=== PATIENT | male | born 1965 | race Caucasian/White ===

== ENCOUNTER 2019-07-06 10:53 | Emergency (ER) | payer MEDICARE, SELFPAY ==
[2019-07-06] VITALS (13 sets, daily range): BP systolic 106–123; BP diastolic 76–92; PULSE 68–89; RESP 10–18; TEMP 36.6; O2SAT 92–100; BMI 23.4
--- NOTE | 2019-07-06 11:34 | ED_ITS ---
HPI - Extremity Injury (Lower) <SANDRA Caldwell - Last Filed: 07/07/19 00:09> General Chief Complaint: Extremity Injury, Upper Stated Complaint: left wrist pain and right thigh pain Time Seen by Provider: 07/06/19 11:04 Source: patient Mode of arrival: Wheelchair Limitations: altered mental status History of Present Illness HPI Narrative: This is a 54-year-old male, nonsmoker, who presents to ED with chief complain of right thigh pain and significant left 5th disease pain. Patient appears to be intoxicated and has alcohol breath during conversation. Patient admitted had alcohol intake about a pint of vodka last night but states he is not a binge drinker or heavy drinker. Patient's he had injured his left 5th digit 3 days ago while opening a refrigerator door and he thinks he bumped it. Patient noticed progressively worsening pain, swelling in bruise since the initial injury and was evaluated yesterday at [facility] and was told he has a fracture on affected finger and had an ulnar/gutter splint applied on affected finger. Patient reports last night he accidentally fell after trip on his cat in a dark room and fell on R leg and since then has right hip and thigh pain with red spot. Patient reports he had broke his R leg 3 times in the past and had surgeries. Patient states he is here today in ER today since his was in town in [place] for her appointment and wanted to check it out. He denies driving himself today. Old record has been requested from [facility]. Related Data Home Medications Medication Instructions Recorded Confirmed BusPIRone Hydrochloride (BUSPAR~) 10 mg PO BID #0 07/27/12 OMEPRAZOLE 20 mg PO HS #30 07/27/12 gabapentin [Neurontin] 600 mg PO QID #120 07/27/12 lorazepam [Ativan] 1 mg PO TID #0 07/27/12 07/06/19 metoprolol tartrate 50 mg PO BID #0 07/27/12 oxycodone-acetaminophen [Endocet] 1 tab PO TID #0 07/27/12 pregabalin [Lyrica] 50 mg PO TID #0 07/27/12 sertraline 100 mg PO QDAY #30 07/27/12 Previous Rx's Medication Instructions Recorded albuterol sulfate [Proventil HFA] 2 puff INH Q4-6H #1 inh 07/27/12 meloxicam [Mobic] 15 mg PO QDAY #14 07/27/12 prednisone 40 mg PO QDAY #10 07/27/12 hydroxyzine pamoate [Vistaril] 25 - 50 mg PO HS #45 09/29/12 Allergies Allergy/AdvReac Type Severity Reaction Status Date / Time lisinopril Allergy Severe Swollen Verified 07/06/19 11:43 throat, lips and face Review of Systems <SANDRA Caldwell - Last Filed: 07/07/19 00:09> Review of Systems Narrative: General: Denies fever, chills, fatigue, malaise, sweats. HEENT: Denies sinus pain, ear pain, sore throat, difficulty swallowing, dizziness. Respiratory: Denies dyspnea, cough, wheezing, hemoptysis, sputum. Cardiovascular: Denies chest pain, palpitations, orthopnea, edema. Gastrointestinal: Denies nausea, vomiting, abdominal pain, diarrhea, constipation, melena. : Denies dysuria, frequency, incontinence, hematuria, urinary retention. Musculoskeletal: See HPI Skin: Denies rash, skin lesions, or other. Neurologic: Denies weakness, headache, numbness, change in speech, confusion, seizures, incoordination. Psychiatric: No concerning psychosocial issues. 12-point review of systems is negative except for those stated above. Patient History <SANDRA Caldwell - Last Filed: 07/07/19 00:09> Medical History (Updated 07/07/19 @ 00:08 by SANDRA Caldwell) Claustrophobia (Acute) GERD (gastroesophageal reflux disease) (Acute) Hypertension (Acute) Pancreatitis (Acute) Surgical History (Updated 07/07/19 @ 00:08 by SANDRA Caldwell) History of hip surgery (Acute) Tracheostomy status (Acute) Social History Smoking Status: Never smoker Smoking Status: Never smoker alcohol intake frequency: 3 or more drinks per day Substance Use Type: does not use Exam <SANDRA Caldwell - Last Filed: 07/07/19 00:09> Narrative Exam Narrative: GEN: Alert, oriented x 3, well appearing and nourished, and in no acute distress. Head: Normal cephalic, atraumatic. No scalp or temporal tenderness, palpable mass or rash. EYES: Pupils are equal, round, and reactive to light and accommodation. Extraocular muscles are intact bilaterally. There is no subconjunctival hemorrhage, exudate and sclera non-icteric. ENT: Bilateral auditory canals and tympanic membranes clear. Hearing grossly intact. Nose without bleeding, purulent discharge or deviation. Facial sinuses nontender to palpate. Mucous membrane moist, no mucosal lesion. Throat without erythema, tonsillar hypertrophy or exudate. Uvula in midline, airway patent. Neck: Trachea in midline. No JVD, non-tender without lymphadenopathy. No masses or thyroid megaly. Supple, non-tender and no meningeal signs. CARDIAC: Normal regular rate and rhythm without murmurs, gallops, or rubs. No chest wall tenderness. No peripheral edema, cyanosis or pallor. Capillary refill is less than 2 seconds. RESPIRATORY: Lungs are clear to auscultate bilaterally. No cough, wheezes, rales, or rhonchi. No stridor, respiratory distress, increase work of breathing, or accessary muscle used. ABD: Abdomen soft, nontender and non-distended. No guarding or rebound tende rness to palpate. Bowel sounds are normal in all 4 quadrants. There is no palpable masses or organomegaly. SKIN: Warm, dry, normal color for patient. No erythema, lesions or rash over visible areas. BACK: Nontender without deformity or crepitance. No flank tenderness. NEUROLOGICAL: Appears to be intoxicated with alcohol on his breath. Alert and oriented to place, time and person. Sensation and motor function intact bilaterally. No facial droops, dysphasia. PSYCHIATRIC: Good judgement and reason, without hallucinations, abnormal affect or abnormal behaviors during the examination. Patient is not suicidal. Initial Vital Signs Initial Vital Signs: Vital Signs Pulse Rate 80 07/06/19 11:00 Respiratory Rate 18 07/06/19 11:00 Blood Pressure 106/77 07/06/19 11:00 Extrem Right upper extremity: normal to inspection, full ROM, normal capillary refill and hand (5th distal phalange flexed but states no pain) Details: abnormal to inspection Left upper extremity: hand Details: normal capillary refill, neuromotor exam normal, normal ROM of fingers, swelling (mild swelling to 5th finger with light bruise) and ecchymosis Right lower extremity: hip/thigh Details: tenderness and ecchymosis (Lateral anterior mid thigh); no unusual warmth Left lower extremity: normal to inspection and full ROM <Sandee Crain DO - Last Filed: 07/11/19 06:55> Initial Vital Signs Initial Vital Signs: Vital Signs Pulse Rate 80 07/06/19 11:00 Respiratory Rate 18 07/06/19 11:00 Blood Pressure 106/77 07/06/19 11:00 Scores <Abdoul AdhikariSANDRA Salgado - Last Filed: 07/07/19 00:09> GCS Butler coma scale eye opening: Spontaneous Butler coma scale verbal response: Orientated Francine coma scale motor response: Obey commands Butler coma scale total score: 15 Course <Abdoul AdhikariSANDRA Salgado - Last Filed: 07/07/19 00:09> Orders Ordered: Discontinued Medications Acetaminophen (Tylenol) 650 mg PO NOW ONE Stop: 07/06/19 11:33 Last Admin: 07/06/19 12:05 Dose: Not Given Documented by: TAYLOR Sodium Chloride (Normal Saline 0.9%) 1,000 mls @ 1,000 mls/hr IV BOLUS ONE Stop: 07/06/19 13:39 Last Infusion: 07/06/19 13:50 Dose: 0 mls/hr Documented by: Infusion: 07/06/19 13:05 Dose: 0 mls/hr Documented by: Admin: 07/06/19 12:44 Dose: 1,000 mls/hr Documented by: TAYLOR Sodium Chloride (Normal Saline 0.9%) 1,000 mls @ 1,000 mls/hr IV BOLUS ONE Stop: 07/06/19 13:41 Last Admin: 07/06/19 14:10 Dose: Not Given Documented by: TAYLOR Magnesium Sulfate 2 gm/ Folic Acid 1 mg/ Thiamine HCl 100 mg / Multivitamins 10 ml/ Sodium Chloride 1,015.2 mls @ 200 mls/hr IV NOW ONE Stop: 07/06/19 18:00 Last Infusion: 07/06/19 15:37 Dose: 0 mls/hr Documented by: Admin: 07/06/19 13:28 Dose: 200 mls/hr Documented by: TAYLOR Ibuprofen (Advil) 400 mg PO NOW ONE Stop: 07/06/19 11:33 Last Admin: 07/06/19 12:05 Dose: Not Given Documented by: TAYLOR Pantoprazole Sodium (Protonix) 40 mg IV NOW ONE Stop: 07/06/19 12:43 Last Admin: 07/06/19 13:00 Dose: Not Given Documented by: TAYLOR Reevaluation(s) Reevaluation #1: Pt became unresponsive when RT to bedside for EKG. Aroused by painful stimuli and during pupil exam. Prior to this the patient reproted for chest and back pain. Noticed light ecchymotic bruise to L side chest wall. Ordered CT-head, CXR, lab test, Tox and ETOH screen. Time: 12:35 Reevaluation #2: Pt fully awake and conversing appropriately. Reports my body hurts all over Time: 13:35 Vital Signs Vital signs: Vital Signs - 8 hr 07/06/19 12:30 07/06/19 12:50 07/06/19 13:00 Pulse Rate 75 89 70 Respiratory Rate 14 14 12 Blood Pressure [Right Arm] 110/80 118/88 122/92 H Pulse Oximetry 93 94 07/06/19 13:15 07/06/19 13:30 07/06/19 13:31 Pulse Rate 72 71 68 Respiratory Rate 14 13 15 Blood Pressure [Right Arm] 115/78 114/83 119/87 Pulse Oximetry 92 100 07/06/19 13:45 07/06/19 14:00 07/06/19 14:15 Pulse Rate 71 71 70 Respiratory Rate 12 11 L 12 Blood Pressure [Right Arm] 108/78 107/79 112/76 Pulse Oximetry 93 95 96 07/06/19 14:30 Pulse Rate 68 Respiratory Rate 10 L Blood Pressure [Right Arm] 111/89 Pulse Oximetry 95 <Sandee Crain DO - Last Filed: 07/11/19 06:55> Orders Ordered: Discontinued Medications Acetaminophen (Tylenol) 650 mg PO NOW ONE Stop: 07/06/19 11:33 Last Admin: 07/06/19 12:05 Dose: Not Given Documented by: TAYLOR Sodium Chloride (Normal Saline 0.9%) 1,000 mls @ 1,000 mls/hr IV BOLUS ONE Stop: 07/06/19 13:39 Last Infusion: 07/06/19 13:50 Dose: 0 mls/hr Documented by: Infusion: 07/06/19 13:05 Dose: 0 mls/hr Documented by: Admin: 07/06/19 12:44 Dose: 1,000 mls/hr Documented by: TAYLOR Sodium Chloride (Normal Saline 0.9%) 1,000 mls @ 1,000 mls/hr IV BOLUS ONE Stop: 07/06/19 13:41 Last Admin: 07/06/19 14:10 Dose: Not Given Documented by: TAYLOR Magnesium Sulfate 2 gm/ Folic Acid 1 mg/ Thiamine HCl 100 mg / Multivitamins 10 ml/ Sodium Chloride 1,015.2 mls @ 200 mls/hr IV NOW ONE Stop: 07/06/19 18:00 Last Infusion: 07/06/19 15:37 Dose: 0 mls/hr Documented by: Admin: 07/06/19 13:28 Dose: 200 mls/hr Documented by: TAYLOR Ibuprofen (Advil) 400 mg PO NOW ONE Stop: 07/06/19 11:33 Last Admin: 07/06/19 12:05 Dose: Not Given Documented by: TAYLOR Pantoprazole Sodium (Protonix) 40 mg IV NOW ONE Stop: 07/06/19 12:43 Last Admin: 07/06/19 13:00 Dose: Not Given Documented by: TAYLOR Vital Signs Vital signs: Vital Signs - 8 hr 07/06/19 12:30 07/06/19 12:50 07/06/19 13:00 Pulse Rate 75 89 70 Respiratory Rate 14 14 12 Blood Pressure [Right Arm] 110/80 118/88 122/92 H Pulse Oximetry 93 94 07/06/19 13:15 07/06/19 13:30 07/06/19 13:31 Pulse Rate 72 71 68 Respiratory Rate 14 13 15 Blood Pressure [Right Arm] 115/78 114/83 119/87 Pulse Oximetry 92 100 07/06/19 13:45 07/06/19 14:00 07/06/19 14:15 Pulse Rate 71 71 70 Respiratory Rate 12 11 L 12 Blood Pressure [Right Arm] 108/78 107/79 112/76 Pulse Oximetry 93 95 96 07/06/19 14:30 Pulse Rate 68 Respiratory Rate 10 L Blood Pressure [Right Arm] 111/89 Pulse Oximetry 95 MDM - Extremity Injury (Lower) <MATILDA CaldwellP - Last Filed: 07/07/19 00:09> Differential Diagnosis Differential diagnosis: Likely other (ETOH intoxication, L 5th finger fracture, R hip contusion, Chest wall contusion) Medical Records Attestation: I reviewed the patient's medical records. Lab Data Attestation: I reviewed the patient's lab results. Result diagrams: 07/06/19 12:45 07/06/19 12:45 Labs: Lab Results 07/06/19 07/06/19 07/06/19 Range/Units 12:45 12:45 12:45 WBC 3.4 L (4.5-11.0) X10^3/uL RBC 3.57 L (4.5-5.9) X10^6/uL Hgb 12.2 L (13.5-17.5) g/dL Hct 35.7 L (41-53) % MCV 100.0 (80-100) fL MCH 34.3 H (26-34) PG MCHC 34.3 (30-36) % RDW 14.4 (11.6-14.8) % Plt Count 149 L (150-400) X10^3/uL Neut % (Auto) 30.5 L (50-75) % Lymph % (Auto) 38.1 (25-40) % [place] % (Auto) 23.7 H (3-14) % Eos % (Auto) 5.8 H (2-4) % Baso % (Auto) 1.9 (0-2) % Neut # (Auto) 1000 L (5400-1841) /uL Lymph # (Auto) 1300 (5777-3926) /uL [place] # (Auto) 800 (0-900) /uL Eos # (Auto) 200 (0-450) /uL Baso # (Auto) 100 (0-100) /uL Sodium 143 (137-145) mmol/L Potassium 3.7 (3.4-5.1) mmol/L Chloride 107 (98-107) mmol/L Carbon Dioxide 27 (22-32) mmol/L BUN 14 (9-20) mg/dL Creatinine 0.80 (0.66-1.25) mg/dL Estimated GFR > 60.0 (>60) mL/min BUN/Creatinine Ratio 17.5 (6-22) Glucose 94 (70-100) mg/dL Calcium 8.5 (8.4-10.2) mg/dL Magnesium (1.6-2.3) mg/dL Total Bilirubin 0.6 (0.2-1.3) mg/dL AST 117 H (17-59) IU/L ALT 52 H (<50) IU/L Alkaline Phosphatase 126 (38-126) U/L Total Creatine Kinase (55-170) U/L CK-MB (CK-2) CK-MB (CK-2) Rel Index Troponin I (0.01-0.034) ng/mL Total Protein 6.3 (6.3-8.2) g/dL Albumin 3.7 (3.5-5.0) g/dL Globulin 2.6 (1.7-4.1) g/dL Albumin/Globulin Ratio 1.4 (1.0-2.8) Lipase (23-300) U/L TSH 1.56 (0.47-4.68) uIU/mL Urine Color Urine Appearance Urine pH (4.5-8.0) Ur Specific [place] (1.000-1.035) Urine Protein (Negative) Urine Glucose (UA) (Negative) g/dL Urine Ketones (NEGATIVE) Urine Occult Blood (Negative) Urine Nitrate (Negative) Urine Bilirubin (NEGATIVE) Urine Urobilinogen (0.2) E.U./dL Ur Leukocyte Esterase (NEGATIVE) Urine RBC (0-5/HPF) Urine WBC (0-5/HPF) Ur Squamous Epith Cells Ur Transition Epith Cell Ur Renal Epithelial Cell Calcium Oxalate Crystal Uric Acid Crystals Triple Phos Crystals Other Crystals Amorphous Sediment Urine Bacteria (None) Hyaline Casts Granular Casts RBC Casts WBC Casts Other Casts Urine Mucus Urine Trichomonas Urine Yeast Urine Sperm Ur Culture Indicated? Micro UA Comment Salicylates < 1.0 (<20) mg/dL U Opiates 300ng/mL cut (Negative) Ur Oxycodone Screen (Negative) Urine Methadone Screen (Negative) Acetaminophen < 10 L (10-30) ug/mL Ur Barbiturates Screen (Negative) U Tricyclic Antidepress (Negative) Ur Phencyclidine Scrn (Negative) Ur Amphetamines Screen (Negative) U Methamphetamines Scrn (Negative) Ur MDMA Scrn (Ecstasy) (Negative) U Benzodiazepines Scrn (Negative) Urine Cocaine Screen (Negative) U Marijuana (THC) Screen (Negative) Ethyl Alcohol 258 H ( - 10) mg/dL 07/06/19 07/06/19 07/06/19 Range/Units 12:45 12:45 12:50 WBC (4.5-11.0) X10^3/uL RBC (4.5-5.9) X10^6/uL Hgb (13.5-17.5) g/dL Hct (41-53) % MCV (80-100) fL MCH (26-34) PG MCHC (30-36) % RDW (11.6-14.8) % Plt Count (150-400) X10^3/uL Neut % (Auto) (50-75) % Lymph % (Auto) (25-40) % [place] % (Auto) (3-14) % Eos % (Auto) (2-4) % Baso % (Auto) (0-2) % Neut # (Auto) (7617-4303) /uL Lymph # (Auto) (2104-8912) /uL [place] # (Auto) (0-900) /uL Eos # (Auto) (0-450) /uL Baso # (Auto) (0-100) /uL Sodium (137-145) mmol/L Potassium (3.4-5.1) mmol/L Chloride (98-107) mmol/L Carbon Dioxide (22-32) mmol/L BUN (9-20) mg/dL Creatinine (0.66-1.25) mg/dL Estimated GFR (>60) mL/min BUN/Creatinine Ratio (6-22) Glucose (70-100) mg/dL Calcium (8.4-10.2) mg/dL Magnesium 1.7 (1.6-2.3) mg/dL Total Bilirubin (0.2-1.3) mg/dL AST (17-59) IU/L ALT (<50) IU/L Alkaline Phosphatase (38-126) U/L Total Creatine Kinase 56 (55-170) U/L CK-MB (CK-2) TNP CK-MB (CK-2) Rel Index TNP Troponin I < 0.012 (0.01-0.034) ng/mL Total Protein (6.3-8.2) g/dL Albumin (3.5-5.0) g/dL Globulin (1.7-4.1) g/dL Albumin/Globulin Ratio (1.0-2.8) Lipase 586 H (23-300) U/L TSH (0.47-4.68) uIU/mL Urine Color Yellow Urine Appearance Clear Urine pH 5.5 (4.5-8.0) Ur Specific [place] 1.015 (1.000-1.035) Urine Protein Negative (Negative) Urine Glucose (UA) Negative (Negative) g/dL Urine Ketones Negative (NEGATIVE) Urine Occult Blood Negative (Negative) Urine Nitrate Negative (Negative) Urine Bilirubin Negative (NEGATIVE) Urine Urobilinogen 0.2 (0.2) E.U./dL Ur Leukocyte Esterase Negative (NEGATIVE) Urine RBC None seen (0-5/HPF) Urine WBC 0-1/hpf (0-5/HPF) Ur Squamous Epith Cells Ur Transition Epith Cell Ur Renal Epithelial Cell Calcium Oxalate Crystal Uric Acid Crystals Triple Phos Crystals Other Crystals Amorphous Sediment Urine Bacteria Few (2-10) H (None) Hyaline Casts Granular Casts RBC Casts WBC Casts Other Casts Urine Mucus Urine Trichomonas Urine Yeast Urine Sperm Ur Culture Indicated? Cult not indicated Micro UA Comment Salicylates (<20) mg/dL U Opiates 300ng/mL cut (Negative) Ur Oxycodone Screen (Negative) Urine Methadone Screen (Negative) Acetaminophen (10-30) ug/mL Ur Barbiturates Screen (Negative) U Tricyclic Antidepress (Negative) Ur Phencyclidine Scrn (Negative) Ur Amphetamines Screen (Negative) U Methamphetamines Scrn (Negative) Ur MDMA Scrn (Ecstasy) (Negative) U Benzodiazepines Scrn (Negative) Urine Cocaine Screen (Negative) U Marijuana (THC) Screen (Negative) Ethyl Alcohol ( - 10) mg/dL 07/06/19 07/06/19 Range/Units 12:50 14:00 WBC (4.5-11.0) X10^3/uL RBC (4.5-5.9) X10^6/uL Hgb (13.5-17.5) g/dL Hct (41-53) % MCV (80-100) fL MCH (26-34) PG MCHC (30-36) % RDW (11.6-14.8) % Plt Count (150-400) X10^3/uL Neut % (Auto) (50-75) % Lymph % (Auto) (25-40) % [place] % (Auto) (3-14) % Eos % (Auto) (2-4) % Baso % (Auto) (0-2) % Neut # (Auto) (7614-3076) /uL Lymph # (Auto) (0499-0822) /uL [place] # (Auto) (0-900) /uL Eos # (Auto) (0-450) /uL Baso # (Auto) (0-100) /uL Sodium (137-145) mmol/L Potassium (3.4-5.1) mmol/L Chloride (98-107) mmol/L Carbon Dioxide (22-32) mmol/L BUN (9-20) mg/dL Creatinine (0.66-1.25) mg/dL Estimated GFR (>60) mL/min BUN/Creatinine Ratio (6-22) Glucose (70-100) mg/dL Calcium (8.4-10.2) mg/dL Magnesium (1.6-2.3) mg/dL Total Bilirubin (0.2-1.3) mg/dL AST (17-59) IU/L ALT (<50) IU/L Alkaline Phosphatase (38-126) U/L Total Creatine Kinase (55-170) U/L CK-MB (CK-2) CK-MB (CK-2) Rel Index Troponin I (0.01-0.034) ng/mL Total Protein (6.3-8.2) g/dL Albumin (3.5-5.0) g/dL Globulin (1.7-4.1) g/dL Albumin/Globulin Ratio (1.0-2.8) Lipase (23-300) U/L TSH (0.47-4.68) uIU/mL Urine Color Cancelled Urine Appearance Cancelled Urine pH Cancelled (4.5-8.0) Ur Specific [place] Cancelled (1.000-1.035) Urine Protein Cancelled (Negative) Urine Glucose (UA) Cancelled (Negative) g/dL Urine Ketones Cancelled (NEGATIVE) Urine Occult Blood Cancelled (Negative) Urine Nitrate Cancelled (Negative) Urine Bilirubin Cancelled (NEGATIVE) Urine Urobilinogen Cancelled (0.2) E.U./dL Ur Leukocyte Esterase Cancelled (NEGATIVE) Urine RBC Cancelled (0-5/HPF) Urine WBC Cancelled (0-5/HPF) Ur Squamous Epith Cells Cancelled Ur Transition Epith Cell Cancelled Ur Renal Epithelial Cell Cancelled Calcium Oxalate Crystal Cancelled Uric Acid Crystals Cancelled Triple Phos Crystals Cancelled Other Crystals Cancelled Amorphous Sediment Cancelled Urine Bacteria Cancelled (None) Hyaline Casts Cancelled Granular Casts Cancelled RBC Casts Cancelled WBC Casts Cancelled Other Casts Cancelled Urine Mucus Cancelled Urine Trichomonas Cancelled Urine Yeast Cancelled Urine Sperm Cancelled Ur Culture Indicated? Cancelled Micro UA Comment Cancelled Salicylates (<20) mg/dL U Opiates 300ng/mL cut Negative (Negative) Ur Oxycodone Screen Negative (Negative) Urine Methadone Screen Negative (Negative) Acetaminophen (10-30) ug/mL Ur Barbiturates Screen Negative (Negative) U Tricyclic Antidepress Negative (Negative) Ur Phencyclidine Scrn Negative (Negative) Ur Amphetamines Screen Negative (Negative) U Methamphetamines Scrn Negative (Negative) Ur MDMA Scrn (Ecstasy) Negative (Negative) U Benzodiazepines Scrn Negative (Negative) Urine Cocaine Screen Negative (Negative) U Marijuana (THC) Screen Negative (Negative) Ethyl Alcohol ( - 10) mg/dL Point of Care Testing Glucose POC [address] scan - head: Radiologist's Impression: [address] [address] [address] Scan Report Signed Patient: Gadiel Quiñonez EMR#: [id number] : 1965Acct:[id number] Age/Sex: 54 / MDate of Service: 07/06/19 Loc: ED Accession Number: [id number] Procedure: CT head/brain wo con Ordering Provider: Abdoul Han PROCEDURE: CT HEAD/BRAIN WO CON INDICATIONS: altered mental status TECHNIQUE: Noncontrast 4.5 mm thick angled axial sections acquired from the foramen magnum to the vertex, with coronal and sagittal reformats. For radiation dose reduction, the following was used: automated exposure control, adjustment of mA and/or kV according to patient size. COMPARISON: None. FINDINGS: Image quality: Excellent. CSF spaces: Basal cisterns are patent. No extra-axial fluid collections. The ventricles are symmetric in size and shape. Brain: No intracranial bleeds or masses. There is cerebral volume loss for age, with resultant ventricular and sulcal prominence. There are periventricular and deep white matter chronic small vessel ischemic changes. There is intracranial internal carotid artery atherosclerosis. Skull and face: Calvarium and visualized facial bones appear intact, without suspicious lesions. Sinuses: Visualized sinuses and mastoids are clear. IMPRESSION: No acute disease, source of altered mental status is not found. Dictated by: Hubert Crespo M.D. on 07/06/2019 at 13:08 Approved by: Hubert Crespo M.D. on 07/06/2019 at 13:09 Chest x-ray: Radiologist's Impression: Gadiel Quioñnez 54 M [address] [address] XRay Report Signed Patient: Gadiel Quiñonez EMR#: [id number] : 1965Acct:[id number] Age/Sex: 54 / MDate of Service: 07/06/19 Loc: ED Accession Number: [id number] Procedure: XR chest 1V Ordering Provider: Abdoul Han PROCEDURE: XR CHEST 1V INDICATIONS: unresponsive TECHNIQUE: One view of the chest was acquired. COMPARISON: None. FINDINGS: Surgical changes and devices: None. Lungs and pleura: Lungs are difficult to accurately assess due to reduced inspiratory volume crowding the bronchovascular markings. No definite pneumonia present. Possible mild pulmonary edema. No pleural effusions or pneumothorax. Mediastinum: Mediastinal contours appear normal. Heart size is normal. Bones and chest wall: No suspicious bony lesions. Overlying soft tissues appear unremarkable. Old left-sided healed rib fractures. IMPRESSION: Reduced inspiratory volume. Old left-sided posterior rib fractures. Possible mild pulmonary edema. Dictated by: Hubert Crespo M.D. on 07/06/2019 at 13:01 Approved by: Hubert Crespo M.D. on 07/06/2019 at 13:04 XR-Hip R: Radiologist's Impression: [address] [address] XRay Report Signed Patient: Gadiel Quiñonez EMR#: [id number] : 1965Acct:[id number] Age/Sex: 54 / MDate of Service: 07/06/19 Loc: ED Accession Number: [id number] Procedure: XR hip w pel if done RT 2V Ordering Provider: Abdoul Han PROCEDURE: XR HIP W PEL IF DONE RT 2V INDICATIONS: R thigh pain, s/p fall, hx hip surgeries TECHNIQUE: AP pelvis with lateral view of the right hip. COMPARISON: [facility], CR, XR PELVIS WITH LATERAL HIP RIGHT, 04/22/2018, 14:23. [facility], CR, XR FEMUR RT MIN 2V, 07/06/2019, 11:32. FINDINGS: Bones: No acute fractures or dislocations. Pelvic ring appears intact. A longstem right hip prosthesis with proximal cerclage wires is redemonstrated. No intra- change in alignment. No new suspicious periprosthetic lucencies. Hypertrophic changes are again noted along the proximal right femur. Soft tissues: The visualized bowel gas pattern is normal. There are a few small periarticular calcifications likely reflecting heterotopic ossification. IMPRESSION: 1. No acute fracture or dislocation. 2. Postsurgical changes including a right hip prosthesis redemonstrated without definite evidence of hardware failure. Dictated by: Daniele Ji M.D. on 07/06/2019 at 12:29 Approved by: Daniele Ji M.D. on 07/06/2019 at 12:31 XR-Femur Rt: Radiologist's Impression: Gadiel Quiñonez 54 M 1965 [place] [address] XRay Report Signed Patient: Gadiel Quiñonez EMR#: [id number] : 1965Acct:[id number] Age/Sex: 54 / MDate of Service: 07/06/19 Loc: ED Accession Number: [id number] Procedure: XR femur RT min 2V Ordering Provider: Abdoul Han PROCEDURE: XR FEMUR RT MIN 2V INDICATIONS: R thigh pain, s/p fall TECHNIQUE: 3 views of the femur were acquired. COMPARISON: [facility], CR, XR PELVIS WITH LATERAL HIP RIGHT, 04/22/2018, 14:23. [facility], CR, XR HIP W PEL IF DONE RT 2V, 07/06/2019, 11:32. FINDINGS: Bones: No acute fractures or dislocations. There are postsurgical changes with a right hip longstem prosthesis redemonstrated. Cerclage wires are also again noted along the proximal femur. Hypertrophic changes are again noted along the proximal right femur are Soft tissues: No new suspicious soft tissue calcifications or masses. IMPRESSION: 1. No acute fracture or dislocation. 2. Post surgical changes redemonstrated in the right hip and proximal femur. Dictated by: Daniele Ji M.D. on 07/06/2019 at 12:16 Approved by: Daniele Ji M.D. on 07/06/2019 at 12:28 ECG Data Attestation: I personally reviewed and interpreted this ECG as follows: Prior ECG tracings: not available for review Interpretation: Sinus rhythm rate at 75. No ST elevation or depression MO interval 154, QRS duration 87, QTc 434 MDM Narrative Medical decision making narrative: This is a 54-year-old gentleman who presents to ED intoxicated with chief complain of severe left 5th finger pain and right thigh pain. Difficulty obtaining HPI due to patient was unable to recall and was appeared to be intoxicated. Patient states he was treated last night in [facility] and was told he has fracture on his left 5th finger and has ulnar gutter splint applied. Patient reports he was not discharged to home with pain medication. [facility] web site was verified and patient received lorazepam 1 mg 90 tabs last in 06/06/19 and 80 tabs during April and monthly prior to this. Old record from [facility] has been requested but this was not available till later time. Patient did not mention about getting x-ray done on his right-sided hip/pelvis/femur at this time since he thinks he had taken a fall last night after he was evaluated at the hospital and x-ray test was obtained. While waiting for x-ray result, patient reports chest and back pain. EKG was ordered and went internetworking technician entered the room, patient was difficult to be aroused by verbal command and touch with slowed breathing. EKG was obtained and showed sinus rhythm rate at [address] elevation or depression. Noticed ecchymosis to chest wall. IV had started with lab draws. Doll catheter was inserted for urine output. CT of head was obtained and does not show acute findings. Portable chest x-ray was done and shows old left-sided posterior rib fractures and possible mild pulmonary edema. Right hip and femur x-ray tests does not show any acute findings today. Blood test shows mild anemia with H&H of 12.2/35.7. Elevated eosinophil of 5.8. Elevated AST of 117 and lipase of 586 which is likely from chronic alcohol intake. ETOH level today was 258 with negative UDS. Old record from [facility] arrived at this time. Patient was evaluated at [facility] ER yesterday afternoon after he presents to clinic for a fall after drinking heavily. Patient was transported by EMS and had reported episode of V-tach which was not recorded and treated. Patient was evaluated thoroughly with multiple CT exams with head, neck, facial, abdomen and pelvis, chest, and left hand x-ray along blood tests. Only findings noted during this visit was left 5th proximal finger fracture and discharged to home when he was clinically sober. Patient was monitored with end CO2 monitor along cardiac exercise specialist. Patient was medicated with Narcan without much effect. Patient was fully aroused about an hour. Patient was medicated with normal saline IV hydration and banana bag. Patient's altered mental status is likely due to heavy alcohol intake and possibly from Ativan ingestion. Patient complain of generalized body aches and finger pain but informed that will not be prescribed with narcotic medications since he is already taking Ativan and heavy alcohol use and risk for respiratory depression. Return precautions were discussed with the patient and advised to follow up with orthopedist as he plans to. Patient advised to quit drinking and seek help. Patient verbalized understanding and agrees with the treatment plan. Patient states he is ready to go home and patient was clinically sober at this time. Patient was able to walk around the nursing station without difficulty. When patient was being discharged, his mother contacted emergency room to inquire about patient. Mother reports she was dropped off at orthopedic office in [place] by patient this morning and she had waited 2 hours. Mother states patient in the take Ativan this morning which she witness. Patient instructed to catch a cab to home since his mother is already at home. Patient had difficult time locating his car in the parking lot according to manager it security. When patient was not watched continuously by of manager it security, the patient's car drove off the parking lot. <Sandee Paras, DO - Last Filed: 07/11/19 06:55> Lab Data Labs: Lab Results 07/06/19 07/06/19 07/06/19 Range/Units 12:45 12:45 12:45 WBC 3.4 L (4.5-11.0) X10^3/uL RBC 3.57 L (4.5-5.9) X10^6/uL Hgb 12.2 L (13.5-17.5) g/dL Hct 35.7 L (41-53) % MCV 100.0 (80-100) fL MCH 34.3 H (26-34) PG MCHC 34.3 (30-36) % RDW 14.4 (11.6-14.8) % Plt Count 149 L (150-400) X10^3/uL Neut % (Auto) 30.5 L (50-75) % Lymph % (Auto) 38.1 (25-40) % [place] % (Auto) 23.7 H (3-14) % Eos % (Auto) 5.8 H (2-4) % Baso % (Auto) 1.9 (0-2) % Neut # (Auto) 1000 L (6364-9596) /uL Lymph # (Auto) 1300 (5887-5638) /uL [place] # (Auto) 800 (0-900) /uL Eos # (Auto) 200 (0-450) /uL Baso # (Auto) 100 (0-100) /uL Sodium 143 (137-145) mmol/L Potassium 3.7 (3.4-5.1) mmol/L Chloride 107 (98-107) mmol/L Carbon Dioxide 27 (22-32) mmol/L BUN 14 (9-20) mg/dL Creatinine 0.80 (0.66-1.25) mg/dL Estimated GFR > 60.0 (>60) mL/min BUN/Creatinine Ratio 17.5 (6-22) Glucose 94 (70-100) mg/dL Calcium 8.5 (8.4-10.2) mg/dL Magnesium (1.6-2.3) mg/dL Total Bilirubin 0.6 (0.2-1.3) mg/dL AST 117 H (17-59) IU/L ALT 52 H (<50) IU/L Alkaline Phosphatase 126 (38-126) U/L Total Creatine Kinase (55-170) U/L CK-MB (CK-2) CK-MB (CK-2) Rel Index Troponin I (0.01-0.034) ng/mL Total Protein 6.3 (6.3-8.2) g/dL Albumin 3.7 (3.5-5.0) g/dL Globulin 2.6 (1.7-4.1) g/dL Albumin/Globulin Ratio 1.4 (1.0-2.8) Lipase (23-300) U/L TSH 1.56 (0.47-4.68) uIU/mL Urine Color Urine Appearance Urine pH (4.5-8.0) Ur Specific [place] (1.000-1.035) Urine Protein (Negative) Urine Glucose (UA) (Negative) g/dL Urine Ketones (NEGATIVE) Urine Occult Blood (Negative) Urine Nitrate (Negative) Urine Bilirubin (NEGATIVE) Urine Urobilinogen (0.2) E.U./dL Ur Leukocyte Esterase (NEGATIVE) Urine RBC (0-5/HPF) Urine WBC (0-5/HPF) Ur Squamous Epith Cells Ur Transition Epith Cell Ur Renal Epithelial Cell Calcium Oxalate Crystal Uric Acid Crystals Triple Phos Crystals Other Crystals Amorphous Sediment Urine Bacteria (None) Hyaline Casts Granular Casts RBC Casts WBC Casts Other Casts Urine Mucus Urine Trichomonas Urine Yeast Urine Sperm Ur Culture Indicated? Micro UA Comment Salicylates < 1.0 (<20) mg/dL U Opiates 300ng/mL cut (Negative) Ur Oxycodone Screen (Negative) Urine Methadone Screen (Negative) Acetaminophen < 10 L (10-30) ug/mL Ur Barbiturates Screen (Negative) U Tricyclic Antidepress (Negative) Ur Phencyclidine Scrn (Negative) Ur Amphetamines Screen (Negative) U Methamphetamines Scrn (Negative) Ur MDMA Scrn (Ecstasy) (Negative) U Benzodiazepines Scrn (Negative) Urine Cocaine Screen (Negative) U Marijuana (THC) Screen (Negative) Ethyl Alcohol 258 H ( - 10) mg/dL 07/06/19 07/06/19 07/06/19 Range/Units 12:45 12:45 12:50 WBC (4.5-11.0) X10^3/uL RBC (4.5-5.9) X10^6/uL Hgb (13.5-17.5) g/dL Hct (41-53) % MCV (80-100) fL MCH (26-34) PG MCHC (30-36) % RDW (11.6-14.8) % Plt Count (150-400) X10^3/uL Neut % (Auto) (50-75) % Lymph % (Auto) (25-40) % [place] % (Auto) (3-14) % Eos % (Auto) (2-4) % Baso % (Auto) (0-2) % Neut # (Auto) (3538-1899) /uL Lymph # (Auto) (8471-7973) /uL [place] # (Auto) (0-900) /uL Eos # (Auto) (0-450) /uL Baso # (Auto) (0-100) /uL Sodium (137-145) mmol/L Potassium (3.4-5.1) mmol/L Chloride (98-107) mmol/L Carbon Dioxide (22-32) mmol/L BUN (9-20) mg/dL Creatinine (0.66-1.25) mg/dL Estimated GFR (>60) mL/min BUN/Creatinine Ratio (6-22) Glucose (70-100) mg/dL Calcium (8.4-10.2) mg/dL Magnesium 1.7 (1.6-2.3) mg/dL Total Bilirubin (0.2-1.3) mg/dL AST (17-59) IU/L ALT (<50) IU/L Alkaline Phosphatase (38-126) U/L Total Creatine Kinase 56 (55-170) U/L CK-MB (CK-2) TNP CK-MB (CK-2) Rel Index TNP Troponin I < 0.012 (0.01-0.034) ng/mL Total Protein (6.3-8.2) g/dL Albumin (3.5-5.0) g/dL Globulin (1.7-4.1) g/dL Albumin/Globulin Ratio (1.0-2.8) Lipase 586 H (23-300) U/L TSH (0.47-4.68) uIU/mL Urine Color Yellow Urine Appearance Clear Urine pH 5.5 (4.5-8.0) Ur Specific [place] 1.015 (1.000-1.035) Urine Protein Negative (Negative) Urine Glucose (UA) Negative (Negative) g/dL Urine Ketones Negative (NEGATIVE) Urine Occult Blood Negative (Negative) Urine Nitrate Negative (Negative) Urine Bilirubin Negative (NEGATIVE) Urine Urobilinogen 0.2 (0.2) E.U./dL Ur Leukocyte Esterase Negative (NEGATIVE) Urine RBC None seen (0-5/HPF) Urine WBC 0-1/hpf (0-5/HPF) Ur Squamous Epith Cells Ur Transition Epith Cell Ur Renal Epithelial Cell Calcium Oxalate Crystal Uric Acid Crystals Triple Phos Crystals Other Crystals Amorphous Sediment Urine Bacteria Few (2-10) H (None) Hyaline Casts Granular Casts RBC Casts WBC Casts Other Casts Urine Mucus Urine Trichomonas Urine Yeast Urine Sperm Ur Culture Indicated? Cult not indicated Micro UA Comment Salicylates (<20) mg/dL U Opiates 300ng/mL cut (Negative) Ur Oxycodone Screen (Negative) Urine Methadone Screen (Negative) Acetaminophen (10-30) ug/mL Ur Barbiturates Screen (Negative) U Tricyclic Antidepress (Negative) Ur Phencyclidine Scrn (Negative) Ur Amphetamines Screen (Negative) U Methamphetamines Scrn (Negative) Ur MDMA Scrn (Ecstasy) (Negative) U Benzodiazepines Scrn (Negative) Urine Cocaine Screen (Negative) U Marijuana (THC) Screen (Negative) Ethyl Alcohol ( - 10) mg/dL 07/06/19 07/06/19 Range/Units 12:50 14:00 WBC (4.5-11.0) X10^3/uL RBC (4.5-5.9) X10^6/uL Hgb (13.5-17.5) g/dL Hct (41-53) % MCV (80-100) fL MCH (26-34) PG MCHC (30-36) % RDW (11.6-14.8) % Plt Count (150-400) X10^3/uL Neut % (Auto) (50-75) % Lymph % (Auto) (25-40) % [place] % (Auto) (3-14) % Eos % (Auto) (2-4) % Baso % (Auto) (0-2) % Neut # (Auto) (0739-8498) /uL Lymph # (Auto) (8837-5865) /uL [place] # (Auto) (0-900) /uL Eos # (Auto) (0-450) /uL Baso # (Auto) (0-100) /uL Sodium (137-145) mmol/L Potassium (3.4-5.1) mmol/L Chloride (98-107) mmol/L Carbon Dioxide (22-32) mmol/L BUN (9-20) mg/dL Creatinine (0.66-1.25) mg/dL Estimated GFR (>60) mL/min BUN/Creatinine Ratio (6-22) Glucose (70-100) mg/dL Calcium (8.4-10.2) mg/dL Magnesium (1.6-2.3) mg/dL Total Bilirubin (0.2-1.3) mg/dL AST (17-59) IU/L ALT (<50) IU/L Alkaline Phosphatase (38-126) U/L Total Creatine Kinase (55-170) U/L CK-MB (CK-2) CK-MB (CK-2) Rel Index Troponin I (0.01-0.034) ng/mL Total Protein (6.3-8.2) g/dL Albumin (3.5-5.0) g/dL Globulin (1.7-4.1) g/dL Albumin/Globulin Ratio (1.0-2.8) Lipase (23-300) U/L TSH (0.47-4.68) uIU/mL Urine Color Cancelled Urine Appearance Cancelled Urine pH Cancelled (4.5-8.0) Ur Specific [place] Cancelled (1.000-1.035) Urine Protein Cancelled (Negative) Urine Glucose (UA) Cancelled (Negative) g/dL Urine Ketones Cancelled (NEGATIVE) Urine Occult Blood Cancelled (Negative) Urine Nitrate Cancelled (Negative) Urine Bilirubin Cancelled (NEGATIVE) Urine Urobilinogen Cancelled (0.2) E.U./dL Ur Leukocyte Esterase Cancelled (NEGATIVE) Urine RBC Cancelled (0-5/HPF) Urine WBC Cancelled (0-5/HPF) Ur Squamous Epith Cells Cancelled Ur Transition Epith Cell Cancelled Ur Renal Epithelial Cell Cancelled Calcium Oxalate Crystal Cancelled Uric Acid Crystals Cancelled Triple Phos Crystals Cancelled Other Crystals Cancelled Amorphous Sediment Cancelled Urine Bacteria Cancelled (None) Hyaline Casts Cancelled Granular Casts Cancelled RBC Casts Cancelled WBC Casts Cancelled Other Casts Cancelled Urine Mucus Cancelled Urine Trichomonas Cancelled Urine Yeast Cancelled Urine Sperm Cancelled Ur Culture Indicated? Cancelled Micro UA Comment Cancelled Salicylates (<20) mg/dL U Opiates 300ng/mL cut Negative (Negative) Ur Oxycodone Screen Negative (Negative) Urine Methadone Screen Negative (Negative) Acetaminophen (10-30) ug/mL Ur Barbiturates Screen Negative (Negative) U Tricyclic Antidepress Negative (Negative) Ur Phencyclidine Scrn Negative (Negative) Ur Amphetamines Screen Negative (Negative) U Methamphetamines Scrn Negative (Negative) Ur MDMA Scrn (Ecstasy) Negative (Negative) U Benzodiazepines Scrn Negative (Negative) Urine Cocaine Screen Negative (Negative) U Marijuana (THC) Screen Negative (Negative) Ethyl Alcohol ( - 10) mg/dL Point of Care Testing Glucose POC 105 Discharge Plan Departure Patient Disposition: Home Clinical Impression: Pain in right leg Alcohol intoxication Qualifiers: Complication of substance-induced condition: with unspecified complication Qualified Code(s): F10.929 - Alcohol use, unspecified with intoxication, unspecified Finger fracture, left Qualifiers: Encounter type: initial encounter Finger: little finger Fracture type: closed Phalanx: unspecified phalanx Fracture alignment: nondisplaced Qualified Code(s): S62.607A - Fracture of unspecified phalanx of left little finger, initial encounter for closed fracture Chest wall contusion Qualifiers: Encounter type: initial encounter Laterality: unspecified laterality Qualified Code(s): S20.219A - Contusion of unspecified front wall of thorax, initial encounter Discharge Date/Time: 07/06/19 16:22 Instructions: DI for Finger Fracture, DI for Alcohol Abuse, DI for Contusion Activity Restrictions/Additional Instructions: You have been diagnosed with [alcohol intoxication, left 5th digit fracture, contusion to chest, right lower extremity. Your EKG was normal, blood test shows mild anemia, elevated liver function tests and lipase, the alcohol level of 258. Head CT and chest x-ray is without acute findings today. There is no new fractures in your right hip or pelvis. Your splint has been reapplied on left hand.]. What to do: *Take your medications as directed. Please take [id number] Tylenol and or Motrin as needed for discomfort. You were medicated with Tylenol and Motrin this morning for pain. You can take 650 of Tylenol up to 4 times a day and 400 mg ibuprofen with meals up to 3 times a day as needed for discomfort. You were provided with Protonix IV, normal saline hydration, banana bag IV fluid while you're in ED. *Follow up with your primary care provider in 2-3 days, call for an appointment. Please follow up with orthopedist as you have planned for finger fracture in left hand. Please use splint all time. Let them know you were seen in the ED and that we asked you to be seen in follow up. Please stop drinking alcohol and seek help for this. Please do not drive while you're intoxicated. *Return to ED if you have any new, worsening, or concerning symptoms, such as [chest pain, breathing difficulty, unable to tolerate fluids, weakness/numbness/severe pain in her injured areas or any acute concerns]. Prescriptions: No Action metoprolol tartrate 50 MG tablet 50 mg PO BID Qty: 0 RF: 0 pregabalin [Lyrica] 50 MG capsule 50 mg PO TID Qty: 0 RF: 0 OMEPRAZOLE 20 mg PO HS Qty: 30 RF: 0 gabapentin [Neurontin] 600 MG tablet 600 mg PO QID Qty: 120 RF: 0 oxycodone-acetaminophen [Endocet] 5 MG/325 MG tablet 1 tab PO TID Qty: 0 RF: 0 BusPIRone Hydrochloride (BUSPAR~) 10 mg PO BID Qty: 0 RF: 0 meloxicam [Mobic] 15 MG tablet 15 mg PO QDAY Qty: 14 RF: 1 prednisone 20 MG tablet 40 mg PO QDAY Qty: 10 RF: 0 albuterol sulfate [Proventil HFA] 90 MCG/PUFF HFA aerosol inhaler 2 puff INH Q4-6H Qty: 1 RF: 1 lorazepam [Ativan] 1 MG tablet 1 mg PO TID Qty: 0 RF: 0 sertraline 100 MG tablet 100 mg PO QDAY Qty: 30 RF: 0 hydroxyzine pamoate [Vistaril] 25 MG capsule 25 - 50 mg PO HS Qty: 45 RF: 0 Referrals: Danyell Kingsley PA-C [Primary Care Provider] -
--- NOTE | 2019-07-06 11:40 | PC.NURSE ---
Spoke with Pt about who he is looking for and where she was last seen. He informed me his and he is looking for his mother. States she dropped him off a few buildings away and thinks she is at some bone clinic but he is unable to remember where or who she is seeing.
--- NOTE | 2019-07-06 12:40 | PC.NURSE ---
security installation technician entered room to get EKG. reports unresponsive. Camryn Started IV and dhara labs. Narcan Administered with No effect. Dr. Crain and CHIEF PHARMACIST Abdoul at bedside. We just recieved records from [facility]. Records being reviewed by Abdoul.
--- NOTE | 2019-07-06 12:40 | DI.RAD.S_ITS ---
PROCEDURE: XR CHEST 1V INDICATIONS: unresponsive TECHNIQUE: One view of the chest was acquired. COMPARISON: None. FINDINGS: Surgical changes and devices: None. Lungs and pleura: Lungs are difficult to accurately assess due to reduced inspiratory volume crowding the bronchovascular markings. No definite pneumonia present. Possible mild pulmonary edema. No pleural effusions or pneumothorax. Mediastinum: Mediastinal contours appear normal. Heart size is normal. Bones and chest wall: No suspicious bony lesions. Overlying soft tissues appear unremarkable. Old left-sided healed rib fractures. IMPRESSION: Reduced inspiratory volume. Old left-sided posterior rib fractures. Possible mild pulmonary edema. Dictated by: Hubert Crespo M.D. on 07/06/2019 at 13:01 Approved by: Hubert Crespo M.D. on 07/06/2019 at 13:04
--- NOTE | 2019-07-06 12:41 | DI.CT.S_ITS ---
PROCEDURE: CT HEAD/BRAIN WO CON INDICATIONS: altered mental status TECHNIQUE: Noncontrast 4.5 mm thick angled axial sections acquired from the foramen magnum to the vertex, with coronal and sagittal reformats. For radiation dose reduction, the following was used: automated exposure control, adjustment of mA and/or kV according to patient size. COMPARISON: None. FINDINGS: Image quality: Excellent. CSF spaces: Basal cisterns are patent. No extra-axial fluid collections. The ventricles are symmetric in size and shape. Brain: No intracranial bleeds or masses. There is cerebral volume loss for age, with resultant ventricular and sulcal prominence. There are periventricular and deep white matter chronic small vessel ischemic changes. There is intracranial internal carotid artery atherosclerosis. Skull and face: Calvarium and visualized facial bones appear intact, without suspicious lesions. Sinuses: Visualized sinuses and mastoids are clear. IMPRESSION: No acute disease, source of altered mental status is not found. Dictated by: Hubert Crespo M.D. on 07/06/2019 at 13:08 Approved by: Hubert Crespo M.D. on 07/06/2019 at 13:09
[2019-07-06] MEDS: NALOXONE 1 MG/ML SYRINGE 2 MG (12:43)
[2019-07-06] MEDS: SODIUM CHLORIDE 0.9% 1,000 ML 1000 ML IV (12:44)
[2019-07-06 12:50] LABS: Add Manual Diff / Slide Review NO; Basophils Absolute Auto 100 /uL (0-100); Basophils Percent Auto 1.9 % (0-2); Eosinophils Absolute Auto 200 /uL (0-450); Eosinophils Percent Auto 5.8 % (2-4); Hematocrit 35.7 % (41-53); Hemoglobin 12.2 g/dL (13.5-17.5); Lymphocytes Absolute Auto 1300 /uL (1100-4500); Lymphocytes Percent Auto 38.1 % (25-40); Mean Corpuscular HGB Conc 34.3 % (30-36); Mean Corpuscular Hemoglobin 34.3 PG (26-34); Monocytes Absolute Auto 800 /uL (0-900); Monocytes Percent Auto 23.7 % (3-14); Neutrophils Absolute Auto 1000 /uL (1500-7000); Neutrophils Percent Auto 30.5 % (50-75); Platelet Count 149 X10^3/uL (150-400); Red Blood Cell Count 3.57 X10^6/uL (4.5-5.9); Red Cell Distribution Width 14.4 % (11.6-14.8); White Blood Cell Count 3.4 X10^3/uL (4.5-11.0)
[2019-07-06 13:04] LABS: Appearance Urine UA CLEAR; Bilirubin Urine UA NEGATIVE (NEGATIVE); Color Urine UA YELLOW; Glucose Urine UA NEGATIVE (Negative); Ketones Urine UA NEGATIVE (NEGATIVE); Leukocyte Esterase Urine UA NEGATIVE (NEGATIVE); Nitrite Urine UA NEGATIVE (Negative); Occult Blood Urine UA NEGATIVE (Negative); Protein Urine UA NEGATIVE (Negative); Specific Gravity Urine UA 1.015 (1.000-1.035); Urobilinogen Urine UA 0.2 E.U./dL (0.2); pH Urine UA 5.5 (4.5-8.0)
[2019-07-06 13:04] LABS: Acetaminophen < 10 ug/mL (10-30); Alanine Aminotransferase 52 IU/L (<50); Albumin 3.7 g/dL (3.5-5.0); Albumin Globulin Ratio 1.4 (1.0-2.8); Alkaline Phosphatase 126 U/L (38-126); Aspartate Aminotransferase 117 IU/L (17-59); BUN Creatinine Ratio 17.5 (6-22); Bilirubin Total 0.6 mg/dL (0.2-1.3); Blood Urea Nitrogen 14 mg/dL (9-20); Calcium 8.5 mg/dL (8.4-10.2); Carbon Dioxide 27 mmol/L (22-32); Chloride 107 mmol/L (98-107); Creatine Kinase 56 U/L (55-170); Estimated Glomerular Filt Rate > 60.0 mL/min (>60); Ethanol (ETOH) 258 mg/dL; Globulin 2.6 g/dL (1.7-4.1); Glucose 94 mg/dL (70-100); HEMOLYSIS 17 (0-50); Lipase 586 U/L (23-300); Potassium 3.7 mmol/L (3.4-5.1); Salicylate < 1.0 mg/dL (<20); Sodium 143 mmol/L (137-145); Total Protein 6.3 g/dL (6.3-8.2)
[2019-07-06 13:16] LABS: Troponin I < 0.012 ng/mL (0.01-0.034)
[2019-07-06 13:18] LABS: UR Morphine/Opiate cutoff 300 Negative (Negative); Ur Creatinine Normal (Normal); Ur Specific Gravity Normal (Normal); Urine Amphetamines Negative (Negative); Urine Barbiturates Negative (Negative); Urine Benzodiazepines Negative (Negative); Urine Cocaine Negative (Negative); Urine MDMA Negative (Negative); Urine Methadone Negative (Negative); Urine Methamphetamines Negative (Negative); Urine Oxycodone Negative (Negative); Urine Phencyclidine Negative (Negative); Urine Tetrahydrocannabinol Negative (Negative); Urine Tricyclic Antidepressant Negative (Negative); Urine pH Normal (Normal)
[2019-07-06 13:22] LABS: Magnesium 1.7 mg/dL (1.6-2.3)
[2019-07-06 13:22] LABS: Bacteria Urine Few (2-10); Culture Indicated Urine Cult Not Indicated; RBC Urine None Seen (0-5/HPF); WBC Urine 0-1/HPF (0-5/HPF)
[2019-07-06] MEDS: MAGNESIUM SULFATE 2 GM, FOLIC ACID 1 MG, THIAMINE 100 MG, MULTIVITAMIN 10 ML in SODIUM ... IV (13:28)
--- NOTE | 2019-07-06 14:16 | PC.NURSE ---
Pt states he couldn't be better when asked for clarification he states he doesn't know. Updated on condition. Pt falls asleep easily. Informed him again that we did not get ahold of his mom. Pt states he remembers that conversation and states he will need a cab home.
--- NOTE | 2019-07-06 14:38 | PC.NURSE ---
late entry: @ 1230p: Called to pt room by respiratory therapy. Pt is now unresponsive to painful stimulus. Dr. Crain to room. Given narcan w/o any improvement. Pt had admitted to etoh prior to arrival. Able to maintain airway w/o positioning. To CT w/ RN.
[2019-07-06 14:46] LABS: Thyroid Stimulating Hormone 1.56 uIU/mL (0.47-4.68)
--- NOTE | 2019-07-06 15:32 | PC.NURSE ---
Ambulated with Pt around ED. Pt tolerated well. States he has a mild limp from a previous fall. Pt request pain and anxiety medication again. Notified that we cannot give him anything else that may sedate him because he was unresponsive a little while ago. Pt verbalizes understanding and states he has some thing at home for it. I asked pt if we could call him a cab or a friend to give him a ride, pt states he has a phone and has it under control. Pt again repeats that his Mom brought him to [place] and that he needs a Cab home.
--- NOTE | 2019-07-06 16:12 | PC.NURSE ---
Spoke with pt's Mom on the phone. She states pt drove her to a doctors appointment from [place] at 11. She reports pts driving was irratic and had bad behavior today. reports he did take his anxiety meds this morning but did not know about any drinking. Reports pt dropped her off at the appointment and was instructed to wait in the car. When she finished with her appointment, her son was gone. I reviewed discharge papers with her and let her know he should be taking a taxi home (per pt reports). I reviewed discharge instructions with pt. He verbalizes understanding. Given opportunity to ask questions and denies concerns at this time. Pt ambulatory from ED with This RN in no acute distress. Pt attempting to find car. I notified him that due to his alcohol level, he is not able to drive home. Pt verbalizes understanding and states he wants to find his house [place] and thinks it may be in his car. We searched closest parking lot and was unable to find it. I again offered to call a cab and pt declines. Pt and I return to ED waiting room and I informed Security that pt is looking for his car and is not safe to drive home. Security Rosalino now assisting pt in search for his car and calling a cab to get pt home. I notified Candelaria Ivory RN of all of the above.
== END 2019-07-06 16:22 | disposition home or self-care (01) ==
PROVIDERS: Emergency Provider Nurse Practitioner Family; PCP Physician Assistant
DX: S62.607A Fracture of unspecified phalanx of left little finger, initial encounter for closed fracture (principal); M79.651 Pain in right thigh; F10.929 Alcohol use, unspecified with intoxication, unspecified; R07.89 Other chest pain; R41.82 Altered mental status, unspecified; W01.0XXA Fall on same level from slipping, tripping and stumbling without subsequent striking against object, initial encounter
CPT/HCPCS: 36415; 51701; 70450; 71045; 73502; 73552; 80053; 80305; 80320; 80329; 81001; 82550; 82962; 83690; 83735; 84443; 84484; 85025; 93005; 96365; 96366; 99285; G0480; J2310; J3475

== ENCOUNTER 2020-02-19 20:25 | Emergency (ER) | payer MEDICARE, MEDICAID, SELFPAY ==
[2020-02-19 20:32] VITALS: BP 114/82; PULSE 71; RESP 12; TEMP 36.2; O2SAT 100; BMI 21.0
--- NOTE | 2020-02-19 20:32 | DI.CT.S_ITS ---
PROCEDURE: CT CERVICAL SPINE WO CON INDICATIONS: fall with head injury, positive etoh TECHNIQUE: Noncontrast 3 mm thick sections acquired from the skull base to the T4 level. Sagittal and coronal reformats were then constructed. For radiation dose reduction, the following was used: automated exposure control, adjustment of mA and/or kV according to patient size. COMPARISON: None. FINDINGS: Image quality: Excellent. Bones: No fractures or dislocations. Visualized superior ribs are intact. Multilevel disc space narrowing and endplate osteophyte formation. Multilevel facet hypertrophy. Soft tissues: Prevertebral soft tissues are normal in thickness. No paravertebral hematomas. No apical pneumothoraces. REFERENCE TEXT DELETE FROM FINAL REPORT Craniocervical Injury Classification: Occipital condyle fractures: * Type I: axial loading with minimal displacement; stable. * Type II: skull base fx extending through condyle; stable. * Type III: alar ligament avulsion fx:; unstable. [place] fractures (Mohit): * Type I: posterior arches; stable. * Type II: anterior arch; stable. * Type III: bilat posterior arch with bilateral/unilateral anterior arch (Mohit burst); potentially unstable depending on transverse ligament integrity. * Type IV: lateral mass fx; stable. * Type V: transverse anterior arch avulsion fx; stable. Odontoid fractures: * Type I: alar ligament oblique avulsion fx through tip; stable. * Type II: dens-body junction; unstable. Risk factors for non-union: age >50 years, >6 mm displacement, or comminution at fracture site. * Type III: thru cancellous portion of dens body; can cause canal compromise. Hangman fractures: * Type I: hairline fx with <2 mm translation; stable. * Type II: angulation >11 degrees, > 2 mm translation; can be unstable. * Type IIa: severe angulation w/o translation (intact ALL); unstable. * Type III: bilateral facet dislocation; unstable. Atlantoaxial rotatory subluxation and fixation: * Type I: rotatory fixation with dens as pivot point, intact alar & transverse ligaments. * Type II: transverse ligament torn, center of rotation shifts to lateral mass, <5 mm anterior displacement of atlas; unstable. * Type III: transverse and alar ligaments torn, similar to type II but with >5 mm anterior displacement of atlas; unstable. * Type IV: deficient odontoid, with posterior displacement of atlas; unstable. Subaxial Injury Classification: SLIC Scoring System. Morphology: * No abnormality: 0 * Compression: 1 * Burst: 2 * Distraction: 3 (dislocation in the vertical axis, from hyperextension or hyperflexion). Hyperflexion-distraction criteria: facet overlap <50%, facet diastasis > 2mm, posterior disk spac widening with angulation >11 degrees. * Translation or rotation: 4. Rotation criteria: listhesis >3.5 mm but <50% of caudal vertebral body width. Translation criteria: listhesis >3.5 mm and usually >50% of caudal vertebral body width. Discoligamentous complex: psych coordinator from abnormal bony relationships on CT. * Intact: 0 * Indeterminate: 1 * Disrupted: 2 Neurologic status: * Intact: 0 * Root injury: 1 * Complete cord injury: 2 * Incomplete cord injury: 3 * Incomplete cord injury with compression: 4 Total SLIC score: 3 or less is non-surgical, 4 is indeterminate, 5 or more is surgical. IMPRESSION: Multilevel degenerative disc and facet disease. No fracture. Dictated by: Liz Bhardwaj M.D. on 02/19/2020 at 21:25 Approved by: Liz Bhardwaj M.D. on 02/19/2020 at 21:27
--- NOTE | 2020-02-19 20:32 | DI.CT.S_ITS ---
PROCEDURE: CT HEAD/BRAIN WO CON INDICATIONS: slurred speech, possible head injury TECHNIQUE: Noncontrast 4.5 mm thick angled axial sections acquired from the foramen magnum to the vertex, with coronal and sagittal reformats. For radiation dose reduction, the following was used: automated exposure control, adjustment of mA and/or kV according to patient size. COMPARISON: [facility], CT, CT HEAD/BRAIN WO CON, 07/06/2019, 12:49. FINDINGS: Image quality: Excellent. CSF spaces: Basal cisterns are patent. No extra-axial fluid collections. Ventricles are normal in size and shape. Brain: No midline shift. No intracranial masses or hemorrhage. Quinn-white matter interface is normal. Skull and face: Calvarium and visualized facial bones are intact, without suspicious lesions. Sinuses: Visualized sinuses and mastoids are clear. IMPRESSION: No acute process. Dictated by: Liz Bhardwaj M.D. on 02/19/2020 at 21:25 Approved by: Liz Bhardwaj M.D. on 02/19/2020 at 21:25
--- NOTE | 2020-02-19 20:37 | ED.AMS ---
HPI - Altered Mental Status General Chief Complaint: Neuro Symptoms/Deficit Stated Complaint: Slurred Speech Time Seen by Provider: 02/19/20 20:26 Source: patient and EMS Mode of arrival: EMS Limitations: no limitations History of Present Illness HPI narrative: 54M smoker with extensive alcohol history presents by EMS for evalaution of slurring of speech over much of the day. The contact lens curve grinder team know the patient well and state he is seemingly at his baseline. He does admit to drinking over much of the day and states he was at home and reaching forward for something and he fell forward, maybe hitting his head in the process. He denies any loss of consciousness. He denies any pain. He's had no visual change or focal complaints such as numbness, tingling or weakness. His mother states he wasn't slurring last night, which seems to be his last known normal. He does not meet criteria for stroke activation given that his last known normal was almost 24 hours ago and he has LAMS score of 0. MD complaint: intoxication Onset (ago): hour(s) Timing confirmed by: family member Severity: mild Consistency of symptoms: constant Context: alcohol abuse Associated symptoms: denies other symptoms Treatments prior to arrival: IV fluid and spinal immobilization Related Data Home Medications Medication Instructions Recorded Confirmed acetaminophen [Tylenol Extra 1,000 mg PO Q6H PRN 02/19/20 02/19/20 Strength] calcium carbonate-vitamin D3 1 tab PO DAILY 02/19/20 02/19/20 [Calcium 500 + D] cholecalciferol (vitamin D3) 25 mcg PO DAILY 02/19/20 02/19/20 cyanocobalamin (vitamin B-12) 1,000 mcg PO DAILY 02/19/20 02/19/20 [Vitamin B-12] famotidine 20 mg PO BID 02/19/20 02/19/20 folic acid 0.4 mg PO DAILY 02/19/20 02/19/20 furosemide 40 mg PO DAILY 02/19/20 02/19/20 gabapentin 600 mg PO TID 02/19/20 02/19/20 lorazepam 1 mg PO QID 02/19/20 02/19/20 magnesium oxide 400 mg PO BID 02/19/20 02/19/20 multivit with min-folic acid 200 mcg PO DAILY 02/19/20 02/19/20 [Adult Multivitamin Gummies] omeprazole 20 mg PO BID 02/19/20 02/19/20 ondansetron 4 mg TRANSLINGUAL Q6HR PRN 02/19/20 02/19/20 oxycodone 5 mg PO Q4H PRN 02/19/20 02/19/20 propranolol 30 mg PO BID 02/19/20 02/19/20 sennosides [senna] 8.6 mg PO BID PRN 02/19/20 02/19/20 spironolactone 25 mg PO BID 02/19/20 02/19/20 sucralfate 1 g PO BID 02/19/20 02/19/20 thiamine HCl (vitamin B1) 100 mg PO DAILY 02/19/20 02/19/20 Allergies Allergy/AdvReac Type Severity Reaction Status Date / Time lisinopril Allergy Severe Swollen Verified 02/19/20 20:38 throat, lips and face Review of Systems Constitutional Constitutional: Denies chills, Denies fatigue, Denies fever(s), Denies frequent falls, Denies lethargy and Denies weakness Eyes Eyes: Denies change in vision, Denies eye discharge, Denies irritation and Denies loss of vision ENT Ears, Nose, Mouth, and Throat: Denies change in voice, Denies dizziness, Denies neck pain, Denies sore throat and Denies throat swelling Cardiovascular Cardiovascular: Denies chest pain, Denies irregular heart rhythm, Denies lightheadedness, Denies palpitations, Denies dyspnea, Denies dyspnea on exertion and Denies orthopnea Respiratory Respiratory: Denies cough, Denies dyspnea, Denies dyspnea on exertion and Denies wheezing Gastrointestinal Gastrointestinal: Denies abdominal pain, Denies change in bowel habits, Denies diarrhea, Denies nausea and Denies vomiting Musculoskeletal Musculoskeletal: Denies neck pain and Denies numbness Integumentary/Breasts Skin/Breast: Denies pruritus, Denies erythema, Denies rash and Denies wounds Neurologic Neurologic: Reports abnormal speech, Denies behavioral changes, Denies confusion, Denies dizziness, Denies frequent falls, Denies loss of vision, Denies numbness and Denies weakness Psychiatric Psychiatric: Denies anxiety, Denies behavioral changes, Denies confusion, Denies depression, Denies homicidal ideation and Denies suicidal ideation Endocrine Endocrine: Denies fatigue, Denies flushing and Denies palpitations Hematologic/Lymphatic Hematologic/Lymphatic: Denies easy bruising Allergic/Immunologic Allergic/Immunologic: Denies urticaria, Denies throat swelling and Denies wheezing Patient History Medical History Claustrophobia (Acute) GERD (gastroesophageal reflux disease) (Acute) Hypertension (Acute) Pancreatitis (Acute) Surgical History History of hip surgery (Acute) Tracheostomy status (Acute) Social History Smoking Status: Never smoker Smoking Status: Never smoker alcohol intake frequency: 3 or more drinks per day Substance Use Type: does not use Exam Narrative Exam Narrative: GENERAL: [54] year old patient appears stated age. Well-nourished, well-developed patient, in mild distress. HEAD: Atraumatic. Normocephalic. EYES: Pupils equal round and reactive. Extraocular motions intact. No scleral icterus. No injection or drainage. ENT: Nose without bleeding, purulent drainage. Throat without erythema, tonsillar hypertrophy or exudate. Airway patent. NECK: Trachea midline. Mild right sided paraspinal muscular pain CARDIOVASCULAR: Regular rate and rhythm without murmurs, gallops, or rubs. RESPIRATORY: Clear to auscultation. Breath sounds equal bilaterally. No wheezes, rales, or rhonchi. GASTROINTESTINAL: Abdomen soft, non-tender, nondistended. EXTREMITIES: No edema or joint tenderness. BACK: Nontender without deformity or crepitance. No flank tenderness. NEURO: AOx3. SKIN: No rash or erythema of visible areas Initial Vital Signs Initial Vital Signs: Vital Signs Temperature 97.2 F L 02/19/20 20:32 Pulse Rate 71 02/19/20 20:32 Respiratory Rate 12 02/19/20 20:32 Blood Pressure 114/82 02/19/20 20:32 Pulse Oximetry 100 02/19/20 20:32 Scores GCS [place] coma scale eye opening: Spontaneous Francine coma scale verbal response: Orientated [place] coma scale motor response: Obey commands [place] coma scale total score: 15 NIH Stroke Scale Level of Conciousness: Alert, keenly responsive Ask month/age: Answers both questions correctly. Open/close eyes, close hand: Performs both tasks correctly Best gaze horizontal: Normal Visual johnson: No visual loss Facial palsy: Normal symetrical movement Left arm drift: No drift for full 10 sec Right arm drift: No drift for full 10 sec Left leg drift: No drift for full 10 sec Right leg drift: No drift for full 10 sec Limb ataxia: Absent Sensory on face/arms/legs: Normal, no sensory loss Best language: No aphasia, normal Dysarthria: Mild to mod,some slurring Extinction or inattention: No abnormality Total NIH Stroke scale score: 1 Course Orders Ordered: ED Orders 02/19/20 20:32 CT cervical spine wo con Stat CT head/brain wo con Stat Complete Blood Count AUTO DIFF Stat Comprehensive Metabolic Panel Stat Ethanol (ETOH) Stat Lipase Stat Partial Thromboplastin Time Stat Prothrombin Time INR Stat Troponin & CK Cardiac Panel Stat Urine Drug Screen, Rapid Stat 02/19/20 20:40 EKG-12 Lead Stat Discontinued Medications Sodium Chloride (Normal Saline 0.9%) 1,000 mls @ 150 mls/hr IV CONT GORDY Last Infusion: 02/19/20 22:21 Dose: 0 mls/hr Documented by: Admin: 02/19/20 20:46 Dose: 150 mls/hr Documented by: CARSON Reevaluation(s) Reevaluation #1: patient continues to improve over duration of visit. His alcohol was found to be quite high. CTs unremarkable. Speech clears, patient ambulates with a steady gait. Requesting DC Vital Signs Vital signs: Vital Signs - 8 hr 02/19/20 20:32 02/19/20 20:47 02/19/20 21:11 Temperature 97.2 F L Pulse Rate 71 70 67 Respiratory Rate 12 14 13 Blood Pressure 114/82 Pulse Oximetry 100 99 97 02/19/20 21:30 02/19/20 22:00 02/19/20 23:13 Temperature 98.0 F Pulse Rate 74 76 Respiratory Rate 14 19 Blood Pressure 120/70 Pulse Oximetry 98 MDM - Altered Mental Status Lab Data Result diagrams: 02/19/20 20:32 02/19/20 20:32 Labs: Lab Results 02/19/20 02/19/20 02/19/20 Range/Units 20:32 20:32 20:32 WBC 4.8 (4.5-11.0) X10^3/uL RBC 4.23 L (4.5-5.9) X10^6/uL Hgb 14.4 (13.5-17.5) g/dL Hct 42.1 (41-53) % MCV 99.4 (80-100) fL MCH 34.0 (26-34) PG MCHC 34.2 (30-36) % RDW 15.4 H (11.6-14.8) % Plt Count 331 (150-400) X10^3/uL Neut % (Auto) 51.5 (50-75) % Lymph % (Auto) 34.7 (25-40) % [place] % (Auto) 9.2 (3-14) % Eos % (Auto) 4.2 H (2-4) % Baso % (Auto) 0.4 (0-2) % Neut # (Auto) 2500 (2315-8664) /uL Lymph # (Auto) 1700 (8954-2293) /uL [place] # (Auto) 400 (0-900) /uL Eos # (Auto) 200 (0-450) /uL Baso # (Auto) 0 (0-100) /uL PT 11.5 (10.1-12.7) SECONDS INR 1.0 (0.9-1.3) APTT 39 H (26.4-36.2) SECONDS Sodium 138 (137-145) mmol/L Potassium 3.9 (3.4-5.1) mmol/L Chloride 96 L (98-107) mmol/L Carbon Dioxide 28 (22-32) mmol/L BUN 8 L (9-20) mg/dL Creatinine 0.63 L (0.66-1.25) mg/dL Estimated GFR > 60.0 (>60) mL/min BUN/Creatinine Ratio 12.7 (6-22) Glucose 103 H (70-100) mg/dL Calcium 9.7 (8.4-10.2) mg/dL Total Bilirubin 0.5 (0.2-1.3) mg/dL AST 42 (17-59) IU/L ALT 19 (<50) IU/L Alkaline Phosphatase 123 (38-126) U/L Total Creatine Kinase 50 L (55-170) U/L CK-MB (CK-2) TNP CK-MB (CK-2) Rel Index TNP Troponin I < 0.012 (0.01-0.034) ng/mL Total Protein 8.8 H (6.3-8.2) g/dL Albumin 4.7 (3.5-5.0) g/dL Globulin 4.1 (1.7-4.1) g/dL Albumin/Globulin Ratio 1.1 (1.0-2.8) Lipase 20 L (23-300) U/L Ethyl Alcohol 283 H ( - 10) mg/dL Point of Care Testing Glucose POC [address] scan - head: Radiologist's Impression: Gadiel Quiñonez 54 M 1965 [place] [id number] Scan Report Signed Patient: Gadiel Quiñonez EMR#: [id number] : 1965Acct:[id number] Age/Sex: 54 / MDate of Service: 02/19/20 Loc: ED Accession Number: [id number] Procedure: CT head/brain wo con Ordering Provider: Sridhar Klein D.O. PROCEDURE: CT HEAD/BRAIN WO CON INDICATIONS: slurred speech, possible head injury TECHNIQUE: Noncontrast 4.5 mm thick angled axial sections acquired from the foramen magnum to the vertex, with coronal and sagittal reformats. For radiation dose reduction, the following was used: automated exposure control, adjustment of mA and/or kV according to patient size. COMPARISON: [facility], CT, CT HEAD/BRAIN WO CON, 07/06/2019, 12:49. FINDINGS: Image quality: Excellent. CSF spaces: Basal cisterns are patent. No extra-axial fluid collections. Ventricles are normal in size and shape. Brain: No midline shift. No intracranial masses or hemorrhage. Quinn-white matter interface is normal. Skull and face: Calvarium and visualized facial bones are intact, without suspicious lesions. Sinuses: Visualized sinuses and mastoids are clear. IMPRESSION: No acute process. Dictated by: Liz Bhardwaj M.D. on 02/19/2020 at 21:25 Approved by: Liz Bhardwaj M.D. on 02/19/2020 at 21:25 CT - cervical spine: Radiologist's Impression: [address] [address] [address] Scan Report Signed Patient: Gadiel Quiñonez EMR#: [id number] : 1965Acct:[id number] Age/Sex: 54 / MDate of Service: 02/19/20 Loc: ED Accession Number: [id number] Procedure: CT cervical spine wo con Ordering Provider: Sridhar Klein D.O. PROCEDURE: CT CERVICAL SPINE WO CON INDICATIONS: fall with head injury, positive etoh TECHNIQUE: Noncontrast 3 mm thick sections acquired from the skull base to the T4 level. Sagittal and coronal reformats were then constructed. For radiation dose reduction, the following was used: automated exposure control, adjustment of mA and/or kV according to patient size. COMPARISON: None. FINDINGS: Image quality: Excellent. Bones: No fractures or dislocations. Visualized superior ribs are intact. Multilevel disc space narrowing and endplate osteophyte formation. Multilevel facet hypertrophy. Soft tissues: Prevertebral soft tissues are normal in thickness. No paravertebral hematomas. No apical pneumothoraces. REFERENCE TEXT DELETE FROM FINAL REPORT Craniocervical Injury Classification: Occipital condyle fractures: * Type I: axial loading with minimal displacement; stable. * Type II: skull base fx extending through condyle; stable. * Type III: alar ligament avulsion fx:; unstable. [place] fractures (Mohit): * Type I: posterior arches; stable. * Type II: anterior arch; stable. * Type III: bilat posterior arch with bilateral/unilateral anterior arch (Mohit burst); potentially unstable depending on transverse ligament integrity. * Type IV: lateral mass fx; stable. * Type V: transverse anterior arch avulsion fx; stable. Odontoid fractures: * Type I: alar ligament oblique avulsion fx through tip; stable. * Type II: dens-body junction; unstable. Risk factors for non-union: age >50 years, >6 mm displacement, or comminution at fracture site. * Type III: thru cancellous portion of dens body; can cause canal compromise. Hangman fractures: * Type I: hairline fx with <2 mm translation; stable. * Type II: angulation >11 degrees, > 2 mm translation; can be unstable. * Type IIa: severe angulation w/o translation (intact ALL); unstable. * Type III: bilateral facet dislocation; unstable. Atlantoaxial rotatory subluxation and fixation: * Type I: rotatory fixation with dens as pivot point, intact alar & transverse ligaments. * Type II: transverse ligament torn, center of rotation shifts to lateral mass, <5 mm anterior displacement of atlas; unstable. * Type III: transverse and alar ligaments torn, similar to type II but with >5 mm anterior displacement of atlas; unstable. * Type IV: deficient odontoid, with posterior displacement of atlas; unstable. Subaxial Injury Classification: SLIC Scoring System. Morphology: * No abnormality: 0 * Compression: 1 * Burst: 2 * Distraction: 3 (dislocation in the vertical axis, from hyperextension or hyperflexion). Hyperflexion-distraction criteria: facet overlap <50%, facet diastasis > 2mm, posterior disk spac widening with angulation >11 degrees. * Translation or rotation: 4. Rotation criteria: listhesis >3.5 mm but <50% of caudal vertebral body width. Translation criteria: listhesis >3.5 mm and usually >50% of caudal vertebral body width. Discoligamentous complex: rail bender from abnormal bony relationships on CT. * Intact: 0 * Indeterminate: 1 * Disrupted: 2 Neurologic status: * Intact: 0 * Root injury: 1 * Complete cord injury: 2 * Incomplete cord injury: 3 * Incomplete cord injury with compression: 4 Total SLIC score: 3 or less is non-surgical, 4 is indeterminate, 5 or more is surgical. IMPRESSION: Multilevel degenerative disc and facet disease. No fracture. Dictated by: Liz Bhardwaj M.D. on 02/19/2020 at 21:25 Approved by: Liz Bhardwaj M.D. on 02/19/2020 at 21:[address] [facility] Narrative Medical decision making narrative: Multiple etiologies for patient's symptoms considered including: [Substance abuse versus alcohol versus stroke versus other] Patient's symptoms improved over duration of stay with above-stated therapies. Findings and discharge diagnosis discussed with patient/family followed by verbalization of understanding Return precautions discussed with patient/family whom verbalize understanding. Discharge Plan Departure Patient Disposition: Home Clinical Impression: Alcohol abuse Discharge Date/Time: 02/19/20 23:02 Instructions: DI for Alcohol Use Disorder Activity Restrictions/Additional Instructions: *You have been diagnosed with [alcohol abuse with slurring of speech, resolved with sobriety] *What to do: *Take medications as directed *Follow up with your primary care provider in 2-3 days, call for an appointment. Let them know you were seen in the Emergency Department and that we ask that you be seen in follow up *Return to ER if you should have any new, worsening or concerning symptoms Prescriptions: No Action furosemide 40 mg Tablet 40 mg PO DAILY RF: 0 sucralfate 1 gram Tablet 1 g PO BID RF: 0 cyanocobalamin (vitamin B-12) [Vitamin B-12] 1,000 mcg Tablet 1,000 mcg PO DAILY RF: 0 thiamine HCl (vitamin B1) 100 mg Tablet 100 mg PO DAILY RF: 0 folic acid 400 mcg Tablet 0.4 mg PO DAILY RF: 0 acetaminophen [Tylenol Extra Strength] 500 mg Tablet 1,000 mg PO Q6H PRN (Reason: pain/ fever) RF: 0 spironolactone 25 mg Tablet 25 mg PO BID RF: 0 propranolol 10 mg Tablet 30 mg PO BID RF: 0 famotidine 20 mg Tablet 20 mg PO BID RF: 0 gabapentin 300 mg Capsule 600 mg PO TID RF: 0 omeprazole 20 mg Capsule,Delayed Release(Dr/Ec) 20 mg PO BID RF: 0 lorazepam 1 mg Tablet 1 mg PO QID RF: 0 ondansetron 4 mg tablet,disintegrating 4 mg translingual Q6HR PRN (Reason: nausea / vomiting) RF: 0 oxycodone 5 mg Tablet 5 mg PO Q4H PRN (Reason: Pain (Scale Score 7-10)) RF: 0 cholecalciferol (vitamin D3) 25 mcg (1,000 unit) Capsule 25 mcg PO DAILY RF: 0 senna 8.6 mg Capsule 8.6 mg PO BID PRN (Reason: Constipation) RF: 0 calcium carbonate-vitamin D3 [Calcium 500 + D] 500 mg(1,250mg) -200 unit Tablet 1 tab PO DAILY RF: 0 Adult Multivitamin Gummies 200 mcg Tablet,Chewable 200 mcg PO DAILY RF: 0 magnesium oxide 400 mg magnesium Tablet 400 mg PO BID RF: 0 Referrals: Sushil Hamilton MD [Primary Care Provider] -
[2020-02-19] MEDS: SODIUM CHLORIDE 0.9% 1,000 ML 150 ML IV (20:46)
[2020-02-19 20:47] VITALS: PULSE 70; RESP 14; O2SAT 99
[2020-02-19 20:53] LABS: Add Manual Diff / Slide Review NO; Basophils Absolute Auto 0 /uL (0-100); Basophils Percent Auto 0.4 % (0-2); Eosinophils Absolute Auto 200 /uL (0-450); Eosinophils Percent Auto 4.2 % (2-4); Hematocrit 42.1 % (41-53); Hemoglobin 14.4 g/dL (13.5-17.5); Lymphocytes Absolute Auto 1700 /uL (1100-4500); Lymphocytes Percent Auto 34.7 % (25-40); Mean Corpuscular HGB Conc 34.2 % (30-36); Mean Corpuscular Volume 99.4 fL (80-100); Monocytes Absolute Auto 400 /uL (0-900); Monocytes Percent Auto 9.2 % (3-14); Neutrophils Absolute Auto 2500 /uL (1500-7000); Neutrophils Percent Auto 51.5 % (50-75); Platelet Count 331 X10^3/uL (150-400); Red Blood Cell Count 4.23 X10^6/uL (4.5-5.9); Red Cell Distribution Width 15.4 % (11.6-14.8); White Blood Cell Count 4.8 X10^3/uL (4.5-11.0)
--- NOTE | 2020-02-19 20:55 | PC.NURSE ---
iv placed ekg performed c collar remains in place pt on cardaic monitor
--- NOTE | 2020-02-19 20:57 | PC.NURSE ---
pt to ct
[2020-02-19 20:59] LABS: Prothrombin Time 11.5 SECONDS (10.1-12.7)
[2020-02-19 21:02] LABS: PTT Partial Thromboplastin Tim 39 SECONDS (26.4-36.2)
[2020-02-19 21:05] LABS: Alanine Aminotransferase 19 IU/L (<50); Albumin 4.7 g/dL (3.5-5.0); Albumin Globulin Ratio 1.1 (1.0-2.8); Alkaline Phosphatase 123 U/L (38-126); Aspartate Aminotransferase 42 IU/L (17-59); BUN Creatinine Ratio 12.7 (6-22); Bilirubin Total 0.5 mg/dL (0.2-1.3); Blood Urea Nitrogen 8 mg/dL (9-20); Calcium 9.7 mg/dL (8.4-10.2); Carbon Dioxide 28 mmol/L (22-32); Chloride 96 mmol/L (98-107); Creatine Kinase 50 U/L (55-170); Estimated Glomerular Filt Rate > 60.0 mL/min (>60); Ethanol (ETOH) 283 mg/dL; Globulin 4.1 g/dL (1.7-4.1); Glucose 103 mg/dL (70-100); HEMOLYSIS < 15 (0-50); Lipase 20 U/L (23-300); Potassium 3.9 mmol/L (3.4-5.1); Sodium 138 mmol/L (137-145); Total Protein 8.8 g/dL (6.3-8.2)
[2020-02-19 21:11] VITALS: PULSE 67; RESP 13; O2SAT 97
[2020-02-19 21:16] LABS: Troponin I < 0.012 ng/mL (0.01-0.034)
[2020-02-19 21:30] VITALS: PULSE 74; RESP 14; O2SAT 98
--- NOTE | 2020-02-19 21:53 | PC.NURSE ---
cervical collar removed per Dr. Klein. Denies pain / discomfort
[2020-02-19 22:00] VITALS: BP 120/70; PULSE 76; RESP 19
--- NOTE | 2020-02-19 22:23 | PC.NURSE ---
Pt requesting to go home. Given phone to call for a ride. Provider aware and states can go home if someone picks him up.
[2020-02-19 23:13] VITALS: TEMP 36.7
== END 2020-02-19 23:02 | disposition home or self-care (01) ==
PROVIDERS: Emergency Provider Emergency Medicine; PCP Family Medicine
DX: F10.129 Alcohol abuse with intoxication, unspecified (principal); Y90.8 Blood alcohol level of 240 mg/100 ml or more
CPT/HCPCS: 36415; 70450; 72125; 80053; 80320; 82550; 82962; 83690; 84484; 85025; 85610; 85730; 93005; 96360; 96361; 99284

== ENCOUNTER 2021-02-12 16:01 | Emergency (ER) | payer MEDICARE, MEDICAID, SELFPAY ==
[2021-02-12] VITALS (21 sets, daily range): BP systolic 99–118; BP diastolic 68–79; PULSE 80–91; RESP 12–18; TEMP 36.2; O2SAT 94–97
--- NOTE | 2021-02-12 16:05 | DI.CT.S_ITS ---
PROCEDURE: CT HEAD/BRAIN WO CON INDICATIONS: Syncope TECHNIQUE: Noncontrast 4.5 mm thick angled axial sections acquired from the foramen magnum to the vertex, with coronal and sagittal reformats. For radiation dose reduction, the following was used: automated exposure control, adjustment of mA and/or kV according to patient size. COMPARISON: [facility], CT, CT HEAD/BRAIN WO CON, 02/19/2020, 20:53. FINDINGS: Image quality: Excellent. CSF spaces: Basal cisterns are patent. No extra-axial fluid collections. The ventricles are symmetric in size and shape. Brain: No intracranial bleeds or masses. There is cerebral volume loss for age, with resultant ventricular and sulcal prominence. There are periventricular and deep white matter chronic small vessel ischemic changes. There is intracranial internal carotid artery atherosclerosis. Skull and face: Calvarium and visualized facial bones appear intact, without suspicious lesions. Sinuses: Visualized sinuses and mastoids are clear. IMPRESSION: No acute intracranial finding. Dictated by: Omid Mchugh M.D. on 02/12/2021 at 16:32 Approved by: Omid Mchugh M.D. on 02/12/2021 at 16:32
[2021-02-12 16:12] LABS: Add Manual Diff / Slide Review NO; Basophils Absolute Auto 0 /uL (0-100); Basophils Percent Auto 0.3 % (0-2); Eosinophils Absolute Auto 400 /uL (0-450); Eosinophils Percent Auto 7.5 % (2-4); Hematocrit 45.6 % (41-53); Hemoglobin 15.6 g/dL (13.5-17.5); Lymphocytes Absolute Auto 1700 /uL (1100-4500); Lymphocytes Percent Auto 33.4 % (25-40); Mean Corpuscular HGB Conc 34.2 % (30-36); Mean Corpuscular Hemoglobin 33.8 PG (26-34); Mean Corpuscular Volume 98.6 fL (80-100); Monocytes Absolute Auto 500 /uL (0-900); Monocytes Percent Auto 9.4 % (3-14); Neutrophils Absolute Auto 2500 /uL (1500-7000); Neutrophils Percent Auto 49.4 % (50-75); Platelet Count 232 X10^3/uL (150-400); Red Blood Cell Count 4.62 X10^6/uL (4.5-5.9); Red Cell Distribution Width 14.6 % (11.6-14.8)
--- NOTE | 2021-02-12 16:12 | PC.NURSE ---
currently poorly responsive; unable to complete full neuro eval at this time. Pt w/ easy work of breathing, pink/earm/dry.
[2021-02-12] MEDS: SODIUM CHLORIDE 0.9% 1,000 ML 1000 ML IV (16:16)
[2021-02-12 16:24] LABS: BUN Creatinine Ratio 14.7 (6-22); Blood Urea Nitrogen 14 mg/dL (9-20); Calcium 10.5 mg/dL (8.4-10.2); Carbon Dioxide 22 mmol/L (22-32); Chloride 96 mmol/L (98-107); Estimated Glomerular Filt Rate > 60.0 mL/min (>60); Ethanol (ETOH) 176 mg/dL; Glucose 133 mg/dL (70-100); HEMOLYSIS 18 (0-50); Lipase 29 U/L (23-300); Potassium 4.8 mmol/L (3.4-5.1); Sodium 135 mmol/L (137-145)
--- NOTE | 2021-02-12 16:31 | ED.GENADULT ---
HPI - General Adult General Chief complaint: Unresponsive Stated complaint: syncope Time Seen by Provider: 02/12/21 16:04 Mode of arrival: other Limitations: altered mental status History of Present Illness HPI narrative: Patient is a 55-year-old male who was brought to the emergency department after collapsing in the waiting room here at the hospital. He had brought his mother to the hospital to have some test performed. He states he was waiting in the waiting room. He went to stand up and then is unable to provide much more history than this. He states that he was not having chest pain or shortness of breath. His mother who is at bedside who witnessed the event stated that he actually got down on the ground himself. He did not fall. Did not hit his head. Patient was responsive to a sternal rub initially upon arrival. The HPI that is provided above was given after he had been here in the emergency department for period of time. Related Data Home Medications Medication Instructions Recorded Confirmed acetaminophen 500 mg tablet 1,000 mg PO Q6H PRN 02/19/20 02/19/20 (Tylenol Extra Strength) calcium carbonate 500 mg (1,250 1 tab PO DAILY 02/19/20 02/19/20 mg)-vitamin D3 200 unit tablet (Calcium 500 + D) cholecalciferol (vitamin D3) 25 25 mcg PO DAILY 02/19/20 02/19/20 mcg (1,000 unit) capsule cyanocobalamin (vitamin B-12) 1,000 mcg PO DAILY 02/19/20 02/19/20 1,000 mcg tablet (Vitamin B-12) famotidine 20 mg tablet 20 mg PO BID 02/19/20 02/19/20 folic acid 400 mcg tablet 0.4 mg PO DAILY 02/19/20 02/19/20 furosemide 40 mg tablet 40 mg PO DAILY 02/19/20 02/19/20 gabapentin 300 mg capsule 600 mg PO TID 02/19/20 02/19/20 lorazepam 1 mg tablet 1 mg PO QID 02/19/20 02/19/20 magnesium oxide 400 mg PO BID 02/19/20 02/19/20 multivitamin with minerals-folic 200 mcg PO DAILY 02/19/20 02/19/20 acid 200 mcg chewable tablet (Adult Multivitamin Gummies) omeprazole 20 mg capsule,delayed 20 mg PO BID 02/19/20 02/19/20 release ondansetron 4 mg disintegrating 4 mg TRANSLINGUAL Q6HR PRN 02/19/20 02/19/20 tablet oxycodone 5 mg tablet 5 mg PO Q4H PRN 02/19/20 02/19/20 propranolol 10 mg tablet 30 mg PO BID 02/19/20 02/19/20 sennosides 8.6 mg capsule (senna) 8.6 mg PO BID PRN 02/19/20 02/19/20 spironolactone 25 mg tablet 25 mg PO BID 02/19/20 02/19/20 sucralfate 1 gram tablet 1 g PO BID 02/19/20 02/19/20 thiamine HCl (vitamin B1) 100 mg 100 mg PO DAILY 02/19/20 02/19/20 tablet Allergies Allergy/AdvReac Type Severity Reaction Status Date / Time lisinopril Allergy Severe Swollen Verified 02/12/21 16:09 throat, lips and face Review of Systems Review of Systems Narrative: Initially there were no review of systems available. The positive and negatives below were obtained after the patient had been in the emergency department. Constitutional Constitutional: Denies frequent falls and Denies headache(s) Eyes Eyes: Reports system reviewed and no additional complaints, except as documented ENT Ears, Nose, Mouth, and Throat: Denies headache(s) Cardiovascular Comments: No chest pain or palpitations Respiratory Comments: No shortness of breath Gastrointestinal Gastrointestinal: Reports system reviewed and no additional complaints, except as documented Musculoskeletal Musculoskeletal: Reports system reviewed and no additional complaints, except as documented Integumentary/Breasts Skin/Breast: Reports system reviewed and no additional complaints, except as documented Neurologic Neurologic: Denies frequent falls and Denies headache(s) Hematologic/Lymphatic On Anticoagulants: No Allergic/Immunologic Allergic/Immunologic: Reports system reviewed and no additional complaints, except as documented Patient History Medical History (Updated 02/12/21 @ 18:21 by Luis Sahu DO) Claustrophobia GERD (gastroesophageal reflux disease) Hypertension Pancreatitis Surgical History History of hip surgery Tracheostomy status Social History Smoking Status: Never smoker Smoking Status: Never smoker alcohol intake frequency: 3 or more drinks per day Alcohol type: hard liquor Substance Use Type: does not use Exam Initial Vital Signs Initial Vital Signs: Vital Signs Temperature 97.1 F L 02/12/21 16:05 Pulse Rate 90 02/12/21 16:05 Respiratory Rate 18 02/12/21 16:05 Blood Pressure 109/74 02/12/21 16:05 Pulse Oximetry 96 02/12/21 16:05 Const General: cooperative, comfortable and well developed HENMT Head: normal to inspection and normocephalic Eyes General: appearance normal, both eyes and all related structures Pupils: PERRL EOM: EOM intact bilaterally Neck Neck: normal visual inspection Chest Chest: normal inspection of the chest Resp Effort & Inspection: normal respiratory effort Auscultation: clear to auscultation bilaterally Cardio Rate: regular rate Rhythm: regular rhythm GI Inspection: normal to inspection Palpation: soft and No firm Skin General: no rashes or lesions noted Neuro General: patient alert (After period of observation), patient awake (After period of observation) and moves all extremities Extrem General: normal to inspection and capillary refill normal Psych Appearance: grossly normal and well kempt Course Orders Ordered: ED Orders 02/12/21 16:04 Basic Metabolic Panel Stat Complete Blood Count AUTO DIFF Stat Ethanol (ETOH) Stat Lipase Stat 02/12/21 16:05 CT head/brain wo con Stat EKG-12 Lead Stat 02/12/21 16:10 COVID19 -Nasal swab/Pre-Proc Stat Discontinued Medications Sodium Chloride (Normal Saline 0.9%) 1,000 mls @ 1,000 mls/hr IV BOLUS ONE Stop: 02/12/21 17:03 Last Infusion: 02/12/21 18:00 Dose: 0 mls/hr Documented by: Admin: 02/12/21 16:16 Dose: 1,000 mls/hr Documented by: LG Vital Signs Vital signs: Vital Signs - 8 hr 02/12/21 16:05 02/12/21 16:10 02/12/21 16:15 Temperature 97.1 F L Pulse Rate 90 87 91 H Respiratory Rate 18 14 18 Blood Pressure 109/74 106/72 Pulse Oximetry 96 94 94 02/12/21 16:20 02/12/21 16:30 02/12/21 16:40 Temperature Pulse Rate 87 84 83 Respiratory Rate 17 14 16 Blood Pressure 107/74 108/75 99/68 Pulse Oximetry 94 95 95 02/12/21 16:45 02/12/21 16:50 Temperature Pulse Rate 85 83 Respiratory Rate 13 17 Blood Pressure 105/71 Pulse Oximetry 94 95 Medical Decision Making Lab Data Lab results reviewed: Yes I reviewed the patient's lab results. Result diagrams: 02/12/21 16:04 02/12/21 16:04 Labs: Lab Results 02/12/21 02/12/21 02/12/21 Range/Units 16:04 16:04 16:04 WBC 5.0 (4.5-11.0) X10^3/uL RBC 4.62 (4.5-5.9) X10^6/uL Hgb 15.6 (13.5-17.5) g/dL Hct 45.6 (41-53) % MCV 98.6 (80-100) fL MCH 33.8 (26-34) PG MCHC 34.2 (30-36) % RDW 14.6 (11.6-14.8) % Plt Count 232 (150-400) X10^3/uL Neut % (Auto) 49.4 L (50-75) % Lymph % (Auto) 33.4 (25-40) % Wilkinson % (Auto) 9.4 (3-14) % Eos % (Auto) 7.5 H (2-4) % Baso % (Auto) 0.3 (0-2) % Neut # (Auto) 2500 (1730-7965) /uL Lymph # (Auto) 1700 (6375-4064) /uL Wilkinson # (Auto) 500 (0-900) /uL Eos # (Auto) 400 (0-450) /uL Baso # (Auto) 0 (0-100) /uL Sodium 135 L (137-145) mmol/L Potassium 4.8 (3.4-5.1) mmol/L Chloride 96 L (98-107) mmol/L Carbon Dioxide 22 (22-32) mmol/L BUN 14 (9-20) mg/dL Creatinine 0.95 (0.66-1.25) mg/dL Estimated GFR > 60.0 (>60) mL/min BUN/Creatinine Ratio 14.7 (6-22) Glucose 133 H (70-100) mg/dL Calcium 10.5 H (8.4-10.2) mg/dL Lipase 29 (23-300) U/L Ethyl Alcohol 176 H ( - 10) mg/dL SARS-CoV-2 (PCR) (Negative) 02/12/21 Range/Units 16:10 WBC (4.5-11.0) X10^3/uL RBC (4.5-5.9) X10^6/uL Hgb (13.5-17.5) g/dL Hct (41-53) % MCV (80-100) fL MCH (26-34) PG MCHC (30-36) % RDW (11.6-14.8) % Plt Count (150-400) X10^3/uL Neut % (Auto) (50-75) % Lymph % (Auto) (25-40) % Wilkinson % (Auto) (3-14) % Eos % (Auto) (2-4) % Baso % (Auto) (0-2) % Neut # (Auto) (2966-9160) /uL Lymph # (Auto) (2634-2866) /uL Wilkinson # (Auto) (0-900) /uL Eos # (Auto) (0-450) /uL Baso # (Auto) (0-100) /uL Sodium (137-145) mmol/L Potassium (3.4-5.1) mmol/L Chloride (98-107) mmol/L Carbon Dioxide (22-32) mmol/L BUN (9-20) mg/dL Creatinine (0.66-1.25) mg/dL Estimated GFR (>60) mL/min BUN/Creatinine Ratio (6-22) Glucose (70-100) mg/dL Calcium (8.4-10.2) mg/dL Lipase (23-300) U/L Ethyl Alcohol ( - 10) mg/dL SARS-CoV-2 (PCR) Negative (Negative) Point of Care Testing Glucose POC 148 Point of care testing: Point of Care Testing Glucose POC [address] scan - head: Radiologist's Impression: [address] [id number] Scan ReportSigned Patient: Gadiel Quiñonez EMR#: [id number]: 1965Acct:[id number]/Sex: 55 / MDate of Service: 02/12/21Loc: EDAccession Number: [id number] Procedure: CT head/brain wo con Ordering Provider: Luis Sahu D.O. PROCEDURE: CT HEAD/BRAIN WO CON INDICATIONS: Syncope TECHNIQUE: Noncontrast 4.5 mm thick angled axial sections acquired from the foramen magnum to the vertex, with coronal and sagittal reformats. For radiation dose reduction, the following was used: automated exposure control, adjustment of mA and/or kV according to patient size. COMPARISON: [facility], CT, CT HEAD/BRAIN WO CON, 02/19/2020, 20:53. FINDINGS: Image quality: Excellent. CSF spaces: Basal cisterns are patent. No extra-axial fluid collections. The ventricles are symmetric in size and shape. Brain: No intracranial bleeds or masses. There is cerebral volume loss for age, with resultant ventricular and sulcal prominence. There are periventricular and deep white matter chronic small vessel ischemic changes. There is intracranial internal carotid artery atherosclerosis. Skull and face: Calvarium and visualized facial bones appear intact, without suspicious lesions. Sinuses: Visualized sinuses and mastoids are clear. IMPRESSION: No acute intracranial finding. Dictated by: Omid Mchugh M.D. on 02/12/2021 at 16:32 Approved by: Omid Mchugh M.D. on 02/12/2021 at 16:32 ECG Data Attestation: I personally reviewed and interpreted this ECG as follows: Interpretation: Sinus rhythm Ventricular rate 87 Normal axis Normal QRS Normal QTC No ST T wave changes MDM Narrative Medical decision making narrative: Unable initially to obtain any review of systems or HPI. He was maintaining his airway. Head CT is unremarkable. After period of observation here in the emergency department the patient did become more lucid. He provided the HPI review of systems that is included in the note. There is no signs of trauma. There is no reports that he fell to the ground or hit his head. His alcohol level is elevated and I suspect that this is the cause of his symptoms. Apparently this is not unusual for him drink on a daily basis. Patient was able to eventually stand at bedside and able to go to the bathroom. Will discharge home under the care of his mother. He was given return precautions. He expressed understanding and agreement. Discharge Plan Departure Patient Disposition: Home Clinical Impression: Alcohol intoxication, Syncope Instructions: Alcohol Use Disorder Activity Restrictions/Additional Instructions: Your alcohol limit today is above the legal limit. You are not to drive for the next 24 hours nor in the future if you drink alcohol. I suspect that your symptoms today are the result of your alcohol ingestion. Your being discharged to with your mother. Contact your primary doctor for follow-up. Return to the emergency department for any new or worsening symptoms. Prescriptions: No Action furosemide 40 mg Tablet 40 mg PO DAILY RF: 0 sucralfate 1 gram Tablet 1 g PO BID RF: 0 cyanocobalamin (vitamin B-12) [Vitamin B-12] 1,000 mcg Tablet 1,000 mcg PO DAILY RF: 0 thiamine HCl (vitamin B1) 100 mg Tablet 100 mg PO DAILY RF: 0 folic acid 400 mcg Tablet 0.4 mg PO DAILY RF: 0 acetaminophen [Tylenol Extra Strength] 500 mg Tablet 1,000 mg PO Q6H PRN (Reason: pain/ fever) RF: 0 spironolactone 25 mg Tablet 25 mg PO BID RF: 0 propranolol 10 mg Tablet 30 mg PO BID RF: 0 famotidine 20 mg Tablet 20 mg PO BID RF: 0 gabapentin 300 mg Capsule 600 mg PO TID RF: 0 omeprazole 20 mg Capsule,Delayed Release(Dr/Ec) 20 mg PO BID RF: 0 lorazepam 1 mg Tablet 1 mg PO QID RF: 0 ondansetron 4 mg tablet,disintegrating 4 mg translingual Q6HR PRN (Reason: nausea / vomiting) RF: 0 oxycodone 5 mg Tablet 5 mg PO Q4H PRN (Reason: Pain (Scale Score 7-10)) RF: 0 cholecalciferol (vitamin D3) 25 mcg (1,000 unit) Capsule 25 mcg PO DAILY RF: 0 senna 8.6 mg Capsule 8.6 mg PO BID PRN (Reason: Constipation) RF: 0 calcium carbonate-vitamin D3 [Calcium 500 + D] 500 mg(1,250mg) -200 unit Tablet 1 tab PO DAILY RF: 0 Adult Multivitamin Gummies 200 mcg Tablet,Chewable 200 mcg PO DAILY RF: 0 magnesium oxide 400 mg magnesium Tablet 400 mg PO BID RF: 0 Referrals: Sushil Hamilton MD [Primary Care Provider] -
[2021-02-12 16:42] LABS: COVID19 -Nasal RAPID Negative (Negative)
== END 2021-02-12 18:32 | disposition home or self-care (01) ==
PROVIDERS: Emergency Provider Emergency Medicine; PCP Family Medicine
DX: F10.129 Alcohol abuse with intoxication, unspecified (principal); Y90.6 Blood alcohol level of 120-199 mg/100 ml; R55 Syncope and collapse; Z20.822 Contact with and (suspected) exposure to COVID-19
CPT/HCPCS: 36415; 70450; 80048; 80320; 82962; 83690; 85025; 87635; 93005; 93010; 96360; 96361; 99284; C9803

== ENCOUNTER → 2021-03-07 14:17 | Outpatient (CLI) | payer MEDICARE, MEDICAID, SELFPAY ==
--- NOTE | 2021-03-07 | DI.MRI.S_ITS ---
PROCEDURE: MR LUMBAR SPINE WO CON INDICATIONS: Spinal stenosis, lumbar region with neurogenic cla TECHNIQUE: Noncontrast sagittal T1 spin echo and T2 fast echo, sagittal STIR, axial T1 and T2 fast spin echo through the lumbar spine. In cases with scoliosis, additional coronal T2 fast spin echo may be performed. COMPARISON: None. FINDINGS: Image quality: Excellent. Alignment and Curvature: There is trace L1-L2, L2-L3, L3-L4 and L4-L5 retrolisthesis. There is mild, approximately 11? of convex right lumbar spine scoliosis. Bone Marrow: Reactive endplate changes noted adjacent to the L3-L4 and L5-S1 discs. No acute vertebral body compression fractures. Spinal Cord: Conus medullaris terminates at the L1 level. Visualized cord demonstrates normal signal and size. Paraspinous Soft Tissues: No paravertebral masses. T12-L1: Normal appearance. L1-L2: Loss of disc signal and height. Mild, diffuse disc bulge. No central stenosis. No neural foraminal narrowing. No neural compression. L2-L3: Loss of disc signal. Mild, diffuse disc bulge. Mild bilateral facet hypertrophy. Mild narrowing of the central canal. No neural foraminal narrowing. No neural compression. L3-L4: Loss of disc signal and height. Mild, diffuse disc bulge. Mild bilateral facet hypertrophy. Mild narrowing of the central canal. Mild left neural foraminal narrowing. No neural compression. L4-L5: Loss of disc signal and slight loss of disc height. Mild, diffuse disc bulge. Mild bilateral facet hypertrophy. Mild narrowing of the central canal. Mild bilateral neural foraminal narrowing. No neural compression. L5-S1: Loss of disc signal. Mild, diffuse disc bulge. Mild bilateral facet hypertrophy. No central stenosis. Moderate right neural foraminal narrowing. No neural compression. IMPRESSION: 1. Convex right scoliosis. 2. Multilevel degenerative disc disease. 3. Multilevel facet arthropathy. 4. No severe central canal narrowing. 5. No severe neural foraminal narrowing. 6. No neural compression. Dictated by: Denisse Randolph MD, PhD on 03/07/2021 at 17:25 Approved by: Denisse Randolph MD, PhD on 03/07/2021 at 17:28
== END ==
PROVIDERS: PCP Family Medicine; Referring Provider Physical Medicine & Rehabilitation Pain Medicine; Visit Provider Physical Medicine & Rehabilitation Pain Medicine
DX: M48.062 Spinal stenosis, lumbar region with neurogenic claudication (principal); M41.86 Other forms of scoliosis, lumbar region; M51.36 Other intervertebral disc degeneration, lumbar region; M51.37 Other intervertebral disc degeneration, lumbosacral region; M47.816 Spondylosis without myelopathy or radiculopathy, lumbar region; M47.817 Spondylosis without myelopathy or radiculopathy, lumbosacral region
CPT/HCPCS: 72148

== ENCOUNTER 2023-04-26 01:13 | Observation (INO) | payer OTHER, MEDICAID, SELFPAY ==
[2023-04-26] VITALS (10 sets, daily range): BP systolic 116–139; BP diastolic 63–91; PULSE 63–88; RESP 12–18; TEMP 36.4–37.1; O2SAT 98–100; BMI 19.8
--- NOTE | 2023-04-26 | DI.RAD.S_ITS ---
PROCEDURE: XR HIP W PEL IF DONE RT 2V INDICATIONS: CLOSE REDUCTION TECHNIQUE: 5 operative C-arm views of the hip were acquired. COMPARISON: [facility], [facility], XR HIP W PEL IF DONE RT 2V, 07/06/2019, 11:32. FINDINGS: 5 C-arm images utilized during reduction of a dislocated total right hip revision arthroplasty. No radiographic evidence of complications. IMPRESSION: Operative C-arm imaging utilized during reduction of a dislocated hip prosthesis. Dictated by: Matheus Pfeiffer M.D. on 04/26/2023 at 11:39 Approved by: Matheus Pfeiffer M.D. on 04/26/2023 at 11:40
[2023-04-26] MEDS: MORPHINE 2 MG/ML INJ 1 MG IV (02:11)
[2023-04-26] MEDS: SODIUM CHLORIDE 0.9% 500 ML 21 ML IV (02:18)
[2023-04-26] MEDS: OXYCODONE IR 5 MG TABLET 10 MG PO (05:43)
--- NOTE | 2023-04-26 08:22 | PM.HP.1 ---
History of Present Illness History of Present Illness Date Patient Seen: 04/26/23 Time Patient Seen: 08:00 Chief complaint: hip pain Narrative: This is an unfortunate 58-year-old gentleman with a history of a right hip fracture. 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 He then went on to have ongoing substantial problems. He was revised to a total hip arthroplasty. He then had additional problems and ultimately consultation was requested from [facility] Dr. Longo. He has had [address] Longo the most recent 1 was in November of this year. That reconstruction has been complicated by recurrent dislocations. He says he is had about 3 or 4 dislocations. He bent over to get his reading glasses yesterday and dislocated his right hip. [facility] Medical History (Updated 04/26/23 @ 08:31 by Adriana Wright MD) Claustrophobia Pancreatitis GERD (gastroesophageal reflux disease) Hypertension Surgical History Tracheostomy status History of hip surgery Social History household members: family Smoking Status: Former smoker alcohol intake: former Meds Home Medications and Allergies Home Medications Medication Instructions Recorded Confirmed Type acetaminophen 500 mg tablet 1,000 mg PO Q6H PRN pain/ fever 02/19/20 04/26/23 History (Tylenol Extra Strength) cholecalciferol (vitamin D3) 25 25 mcg PO DAILY 02/19/20 04/26/23 History mcg (1,000 unit) capsule cyanocobalamin (vitamin B-12) 1,000 mcg PO DAILY 02/19/20 04/26/23 History 1,000 mcg tablet (Vitamin B-12) folic acid 400 mcg tablet 0.4 mg PO DAILY 02/19/20 04/26/23 History lorazepam 1 mg tablet 1 mg PO QID 02/19/20 04/26/23 History magnesium oxide 400 mg PO BID 02/19/20 04/26/23 History multivitamin with minerals-folic 200 mcg PO DAILY 02/19/20 04/26/23 History acid 200 mcg chewable tablet (Adult Multivitamin Gummies) omeprazole 20 mg capsule,delayed 20 mg PO BID 02/19/20 04/26/23 History release oxycodone 5 mg tablet 5 mg PO Q4H PRN Pain (Scale Score 02/19/20 04/26/23 History 7-10) thiamine HCl (vitamin B1) 100 mg 100 mg PO DAILY 02/19/20 04/26/23 History tablet gabapentin 400 mg PO TID 04/26/23 04/26/23 History Allergies Allergy/AdvReac Type Severity Reaction Status Date / Time lisinopril Allergy Severe Swollen Verified 02/12/21 16:09 throat, lips and face Exam Vital Signs (past 8 hours): - 04/26/23 03:52 Temperature 98.0 F Pulse Rate 68 Respiratory Rate 17 Blood Pressure 130/84 Pulse Oximetry 99 Narrative Exam Narrative: He is alert and oriented HEENT is benign lungs are clear, abdomen soft and benign examination of his right lower extremity shows a foreshortened right leg a extensive incision, pain with range of motion he does have some numbness in bilateral lower extremities right greater than left and some clawing of the toes. He has adequate capillary refill in his right leg Objective Labs Labs: X-rays show a right hip dislocation. He has an extensive prosthesis in his right hip. There is evidence of fracture and comminution of his trochanter. Assessment & Plan Assessment and plan (1) Recurrent dislocation, right hip: Status: Acute (2) Failure of right total hip arthroplasty with dislocation of hip: Status: Acute Plan I have recommended a right hip dislocation reduction with general anesthesia. He has a very complex problem he is already rescheduled for reconstruction. I told him our goal today is to get his hip reduced. If we are completely unsuccessful I would recommend that he be transferred to [facility] where he is already scheduled for hip reconstructive surgery. The procedure options risks benefits and potential complications were discussed in detail. 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 I have reviewed his labs from [facility] as well as his EKG and he looks like a candidate for anesthesia.
--- NOTE | 2023-04-26 09:03 | PM.OP.1 ---
Operative Date/Time/Diagnoses Date of procedure: 04/26/23 Time of procedure: 08:20 Pre-op diagnosis: Recurrent instability right hip with a dislocation that was not reducible in the emergency, history of total hip arthroplasty with multiple revisions Post-op diagnosis: same Procedure & Clinicians Procedure: Closed reduction right hip Same procedure as scheduled: Yes Indications: This is a complex 58-year-old gentleman who has had surgery elsewhere. He had a hip fracture and subsequent total hip arthroplasty by Dr. Turner who currently practices at [facility]. He had problems after his total hip arthroplasty and consultation was obtained by Dr. Longo formerly [facility]. He has had at least [address] Longo the most recent of which was in November. He has had problems with recurrent instability after his reconstruction in November. He has a history of multiple dislocations. He has a constrained liner which has reportedly failed. He presented to [facility] where they do not have orthopedic services an emergency room physician was unable to reduce his hip. He was transferred to [facility] for closed reduction. We did discuss preoperatively that there was no plan for an open reduction and that I strongly felt that he needed to follow-up closely at the formerly [facility] probably sooner than May. The procedure of closed reduction options risks benefits and complications were discussed detail. Had been dislocated for more than 12 hours and was very uncomfortable and wanted to proceed with at least an attempted closed reduction. Surgeon: Adriana Wright Anesthesia Type: General Operative Notes Findings: Closed reduction with hip flexion 80 adduction and longitudinal traction. Relatively unstable situation. Radiographically it appeared that the femoral head was in the acetabular liner component but that the acetabular liner component had dissociated from the acetabular shell. Leg length was restored. No additional compression could be achieved in order to further reseat the acetabular liner into the acetabular shell with manipulative procedures. Estimated Blood Loss (mL): 0 Blood products transfused: none Procedure in detail: Patient was brought to the operating room he underwent induction of general anesthesia. His hip was carefully reduced with a combination of longitudinal traction high flexion and adduction. A definitive pop and yazidism of the leg length was noted with the reduction. X-ray confirmed that the femoral head appeared to be in the acetabular liner but that the acetabular liner there was a separate metal ring which looked like it was probably dissociated from the acetabular shell. The stability of the hip did not appear to be a situation where he could be improved with any additional closed maneuvers. Patient tolerated the anesthesia without difficulty. He was transferred to recovery room in satisfactory stable condition. Complications: none Post-operative Condition: stable Disposition: same day surgery Plan for aftercare: Patient is going to go up to the [place] we are going to get him up with physical therapy we are going to get him a walker we are going to let him be partial weight-bearing on the right lower extremity. I did review posterior hip precautions with him in detail preoperatively. I discussed with him in detail in the recovery room that I fundamentally think that he does have a significantly unstable situation with his right hip and I strongly encouraged him to recontact Dr. Longo as I think he is at extremely high risk for recurrent instability prior to his revision surgery which is reportedly scheduled in May. He lives on [address] [address] [facility] normally goes to [facility]. There was really nothing more we have to offer him here as I would recommend against any open surgery prior to his ultimate reconstructive surgery. If he has recurrent dislocations I would recommend that he be transferred to the formerly [facility]. I spoke to the orthopedic surgeon who was covering for Dr. Longo and he said he would be happy to transplant the message to Dr. Longo. I also spoke to the ER so they are aware of his unstable situation.
[2023-04-26] MEDS: OXYCODONE IR 5 MG TABLET PO ×2 (09:15→11:59)
[2023-04-26] MEDS: hydrOXYzine pamoate 25 MG CAPSULE PO (09:16)
[2023-04-26] MEDS: ACETAMINOPHEN 325 MG TABLET 975 MG PO (09:16)
--- NOTE | 2023-04-26 11:35 | PT.IIE ---
Current Diagnoses Recurrent dislocation, right hip (04/26/23) Dislocation of internal right hip prosthesis, initial encounter (04/26/23) Surgery Performed Operation Date: 04/26/23 08:00 Actual Procedures p Closed Reduction Dislocated Hip - Adriana Wright MD Surgical History (Last Reviewed 04/26/23 @ 08:29 by Adriana Wright MD) History of hip surgery Tracheostomy status Medical History (Last Reviewed 04/26/23 @ 08:29 by Adriana Wright MD) Claustrophobia GERD (gastroesophageal reflux disease) Hypertension Pancreatitis Physical Therapy Inpatient Evaluation/Re-Eval M1 PT/OT-IP Prior Functional Status Start: 04/26/23 11:41 Freq: NEEDED Status: Active Protocol: Document 04/26/23 11:42 AB (Rec: 04/26/23 12:12 AB [id number]) Medical Review Prior Functional Status Medical History Reviewed Yes Communication Pt is able to express all needs. Mobility and Gait Pt reports he sometimes uses FWW at home to ambulate, but not often. He doesn't use AD in community. Activities of Daily Living and IADL's IND with ADLs and light IADLs. Prior Functional Level (Other details) He is not currently working, but helps to take care of his mother. Of note, he has a history of GBS and reports peripheral neuropathy in bilateral feet and bilateral hands (feet>hands) Social History Household Members family Living Arrangements House Number of Floors (Floors) One Floor Number of Stairs To Enter/Railing? 3 PAMELA with left hand rail Home Environment High Toilet,Walk in Shower Home Equipment Front Wheel Walker,Straight Cane,Shower Seat without Backrest,Hand Held Shower, Coding And Reimbursement Specialist,Grab Bars Near Toilet, Grab Bars In Shower Additional Social History Comment Pt lives with mother, but she is not able to provide him with assistance due to her own medical needs. M2 PT-IP Current Condition Start: 04/26/23 11:41 Freq: NEEDED Status: Active Protocol: Document 04/26/23 11:42 AB (Rec: 04/26/23 12:12 AB [id number]) Physical Therapy Current Condition Current Condition Evaluation Date 04/26/23 Treatment Diagnosis R hip dislocation reduction Onset Date 04/26/23 M3 PT-IP Subjective Start: 04/26/23 11:41 Freq: NEEDED Status: Active Protocol: Document 04/26/23 11:42 AB (Rec: 04/26/23 12:12 AB [id number]) Subjective Physical Therapy Visit Type Type Initial Evaluation Visit Start Time 10:29 Visit Stop Time 11:35 Total Visit Minutes 66 Physical Therapy Visit Comments Patient Comments Pt presents semi supine in bed and is agreeable to PT evaluation this morning. Therapy Pain Assessment Pain When Pain Assessed At Rest Pain Present Pain Present Pain Reported Location Right Hip Intensity 3 Pain Management Techniques Distraction,Modification of Treatment M4 PT-IP Mobility and Gait Start: 04/26/23 11:41 Freq: NEEDED Status: Active Protocol: Document 04/26/23 11:42 AB (Rec: 04/26/23 12:12 AB [id number]) PT-Bed Mobility Assessment Rolling Type of Rolling Bilateral Level of Assist Independent Supine to Sit Supine to Sit Independent Sit to Supine Sit to Supine Independent Scooting Scooting to Edge of Bed Independent PT-Transfer Assessment Sit to and From Stand Sit to and from Stand Standby Assistance,Use of Upper Extremities Equipment Transfer Assistive Device Gait Belt Transfers Transfer Destination Bed Transfer Technique Stand Step Pivot Transfer Ability Level of Assist Standby Assistance,Use of Upper Extremities Comments Mobility Comments The pt is able to perform all bed mobility with independence , as he recall hip precautions without needing cues. To perform STS and transfers the pt was SBA only to ensure he maintained hip precautions when standing and sitting, as he was advised to place RLE in front to avoid hip flexion past 90 degrees. He was then able to perform subsequent STS without cue. Pt then ambulated and performed stairs as below. Upon returning to room, the pt is able to return to bed with independence. At end of session, all needs were met and call light was placed within reach. RN was notified of findings. Gait Assessment Gait Gait Assistance Required: Standby Assistance Distance (Feet) 200 Able to Maintain Weight Bearing Status Yes During Gait Assistive Devices Assistive Device Gait Belt,Straight Cane,Front Wheeled Walker Gait Deviations General Gait Pattern Antalgic,Decreased Stride Length,Decreased Feet Clearance Factors Limiting Gait Function Factors Limiting Gait Function Decreased Strength,Limited Range of Motion,Pain Comments Gait Comments The pt was able to ambulate 200ft x2 once with FWW and once with SPC, with SBA. The pt demonstrated gait deviations consistent with medical procedure performed. He demonstrated good stability when walking with FWW and avoided pivoting when turning. With SPC the pt is not as stable as with FWW, but demonstrates good safety awareness and overall good stability. He was educated on tips to reduce his fall risk at home, particularly with peripheral neuropathy. Stair Climbing Assessment Evaluation Level of Assist On Stairs Standby Assistance Devices Stair Climbing Assistive Devices Left Railing Technique/Endurance Stair Climbing Direction Ascend and Descend Stair Climbing Technique Step to Step Number of Steps Climbed 3 Query Text: Stair Climbing Set # Repetitions (reps) 1 Comments Stair Climbing Comments The pt ascended and descended 3 steps using 1 hand rail and SBA, using step to step technique. He ascended leading with LLE and descended leading with RLE, in order to ensure hip precautions were maintained, as well as to decrease pain in right hip. Of note, while taking a standing rest break after performing stairs, the pt's right hip had an audible pop accompanied by pain. The pt was not moving or actively using the hip at the time this occurred. The pt reported the pain subsided back to baseline, and he was able to ambulate back to room. After a seated rest break in his room, the pt was able to tolerate a second bout of ambulation without incident, and was also able to perform bed mobility. This incident was reported to RN. PT-Balance Assessment Sitting Balance and Reactions Static Sitting Balance Ability Normal Dynamic Sitting Balance Ability Normal Standing Balance and Reactions Static Standing Balance Ability Good Dynamic Standing Balance Ability Good M5 PT-IP Objective Assessments Start: 04/26/23 11:41 Freq: NEEDED Status: Active Protocol: Document 04/26/23 11:42 AB (Rec: 04/26/23 12:12 AB [id number]) Orientation Orientation/Cognition Level of Alertness Alert Orientation Name,Age,Birthday,Month,Date, Year,Day of Week,Place, Situation Language Function Ability No Deficits Noted Safety Awareness Understands Safety Issues Memory Description No Deficits Noted Gross Range of Motion Upper Extremity ROM Assessment Within Functional Limits Lower Extremity ROM Assessment Right Impaired Strength Upper Extremity Strength Assessment Within Functional Limits Lower Extremity Strength Assessment Within Functional Limits M6 PT-IP Treatment Start: 04/26/23 11:41 Freq: NEEDED Status: Active Protocol: Document 04/26/23 11:42 AB (Rec: 04/26/23 12:12 AB [id number]) Physical Therapy Treatment Education Education Provided Precautions,Weight Bearing Status,Post-Op Packet,Safety Brace Education Patient M7 PT-IP Assessment and Plan Start: 04/26/23 11:41 Freq: NEEDED Status: Active Protocol: Document 04/26/23 11:42 AB (Rec: 04/26/23 12:12 AB [id number]) PT Summary Assessment and Plan Potential Rehabilitation Potential Good Status of Condition at Evaluation Stable Summary Impairments Pain,ROM,Strength,Balance, Sensation,Bed Mobility, Transfers,Gait,Activity Tolerance Assessment Summary Gadiel Quiñonez is a 58 year old male patient who is s/p right hip dislocation reduction, with posterior hip precautions and WBAT. The pt demonstrates gait deviations consistent with this procedure, but is largely independent in his ability to perform functional mobility. He required SBA for ambulation (with FWW and with SPC) and stairs due to requiring cues and education regarding maintaining hip precautions. Based on his current level of function, PT recommends discharge to home and for pt to return to outpatient PT, as he would benefit from continued skilled PT to improve his deficits. Goals Bed Mobility Goal Independent Transfer Goal Independent Gait Goal Independent Gait Distance 500 Other Goals Pt to ascend/descend 3 steps using 1 hand rail independently. Days to Meet Goals 5 Frequency of Treatment Frequency Of Treatment Twice a Day Treatment Plan Physical Therapy Treatment Plan Bed Mobility Training,Transfer Training,Gait Training, Therapeutic Exercise,Balance Retraining,Post Op Education, Discharge Planning,Hot or Cold Pack,Neuromuscular Re-ed, Coordination Retraining,Manual Therapy Precautions Posterior Hip Precautions No Hip Flexion > 90 degrees,No Hip Internal Rotation,No Hip Adduction Weight Bearing Status Weight Bearing Status Weight Bear as Tolerated Recommendations To Nursing Amount of Assist Needed Independent,Standby Assistance Discharge Recommendations PT Discharge Recommendations Home,Outpatient PT Other Discharge Recommendations Return to outpatient PT. Transportation Needs at Discharge Private Vehicle
[2023-04-26] MEDS: IBUPROFEN 400 MG TABLET PO ×2 (12:00→14:35)
[2023-04-26] MEDS: ACETAMINOPHEN 325 MG TABLET 650 MG PO (12:03)
--- NOTE | 2023-04-26 12:51 | CM.DANOTE ---
DCP: Case received, EMR reviewed and met with patient. Introduced self and role. Was able to obtain information regarding patient's baseline activity status, as well as his current living situation. DCP assessment completed with information currently available. Patient is a 58 year old male who admitted yesterday morning to the care of the orthopedist, Dr. Wright. PCP: Dr. Harmon Payer: confirmed: [employer]/Medicaid. Patient came to the hospital via ambulance, transferred from [facility], for they do not have orthopedic provider. Patient had bent over to cone picker an item at home and dislocated his right hip. Patient had initially gone to [facility], but ended up here for orthopedic services. Patient has history of hip surgeries, notes indicate that he has had [address] Longo at [facility], as recently as November. Notes from orthopedic surgeon also indicates that patient does have confirmed right hip dislocation, and extensive prostesis in his right hip. Patient had surgery today. Met with patient in his room. He had already walked with P.T in the hallway. Confirmed that he resides in [place] with his mother, who is in her 80s. He has not been using any DME prior, but does have a cane for home use, and drives at baseline. Plan should be home today. Patient indicated he does not have a ride, his mother does not drive. Noticed that he has Medicaid as secondary, let him know that this [facility] can go ahead and set up transportation through [employer], today, awaiting discharge orders. Called [employer], gave patient's Medicaid number. Was able to get a cone picker time of 1530, down at the ER entrance. Let them know that he will need to stop at [employer] in [place] to cone picker his meds. Updated nurse, Jolie, and Owen, charge nurse, and white board. Just need to get discharge orders, patient is aware. P: DCP to continue to follow. Pending DC orders, but did set him up with transportation cone picker at 1530. Zahida Lombardo RN/Front Elevator Operator Discharge Planning/Care Management CM Discharge Assessment Start: 04/26/23 12:46 Freq: Status: Active Protocol: Document 04/26/23 12:47 (Rec: 04/26/23 12:51 [id number]) Discharge Planning Assessment Assigned Jowl Trimmer Zahida Lombardo RN/Front Elevator Operator Advance Directives? No History Provided By Patient,Medical Record Prior Living Arrangements House Household Members family Comment Patient resides with his mother Type of transporation used prior to Drives own vehicle admit Independent with ADL's Yes Is patient alert and oriented? Yes Caregiver for Another No DME Already Rented / Owned Cane Comment Has a cane available, has not been needing to use. Barriers to Discharge No Discharge Plan Home Transportation Arrangement Taxi, called [employer] for 1530 cone picker Referrals Initiated None needed Whiteboard Updated in Patient Room with Yes name and ext. # of Jowl Trimmer Review Status In Process Next Review Type Continued Stay Review
[2023-04-26] MEDS: LORazepam 1 MG TABLET PO (13:12)
[2023-04-26] MEDS: GABAPENTIN 400 MG CAPSULE PO (14:36)
== END 2023-04-26 15:30 | disposition home or self-care (01) ==
PROVIDERS: Admitting Provider Orthopaedic Surgery; PCP Family Medicine; Referring Provider Orthopaedic Surgery; Visit Provider Orthopaedic Surgery
PROC: (CPT 27266; principal; 2023-04-26 08:00)
DX: T84.020A Dislocation of internal right hip prosthesis, initial encounter (principal); I10 Essential (primary) hypertension; K21.9 Gastro-esophageal reflux disease without esophagitis
CPT/HCPCS: 27266; 73502; 76000; 96374; 97116; 97161; 97535; G0378; G0379; J2270; J2704; J3010

== ENCOUNTER 2023-05-12 15:25 | Emergency (ER) | payer OTHER, MEDICAID, SELFPAY ==
[2023-04-26 01:30] VITALS: BMI 19.8
[2023-05-12] VITALS (25 sets, daily range): BP systolic 105–136; BP diastolic 64–103; PULSE 54–72; RESP 7–58; TEMP 36.7; O2SAT 94–100
--- NOTE | 2023-05-12 15:35 | DI.RAD.S_ITS ---
PROCEDURE: XR HIP W PEL IF DONE RT 2V INDICATIONS: eval fx vs dislocation TECHNIQUE: AP pelvis and lateral view of the right hip acquired. COMPARISON: [facility] Outside Film, CR, XR PELVIS 1 OR 2 VIEWS, 04/25/2023, 21:56. [facility], CR, XR HIP W PEL IF DONE RT 2V, 04/26/2023, 8:47. FINDINGS: Bones: Patient is status post right hip arthroplasty. Femoral component of right hip arthroplasty is approximately dislocated. The visualized bony structures appear intact. Soft tissues: Overlying postoperative changes are noted. No suspicious soft tissue densities. IMPRESSION: Right hip arthroplasty dislocation. Dictated by: Denisse Randolph MD, PhD on 05/12/2023 at 15:54 Approved by: Denisse Randolph MD, PhD on 05/12/2023 at 15:54
--- NOTE | 2023-05-12 16:03 | ED_ITS ---
HPI - Extremity Injury (Lower) General Chief Complaint: Extremity Injury, Lower Stated Complaint: right hip px Time Seen by Provider: 05/12/23 15:35 Source: patient and EMS Mode of arrival: EMS History of Present Illness HPI Narrative: Patient is a 58-year-old male. Has an unfortunate history of complications surrounding a injury to his right hip. Has fractured his hip in the past. Has had replacements and multiple revisions. He is had multiple dislocations. Most recent was approximately 2 weeks ago where he was seen at an outside facility and transferred here to our facility for orthopedics to reduce. He is being followed by Dr. Longo with the Orthopedic Clinic at the [facility]. Is scheduled to have another revision surgery at the beginning of next month. Today he stated that he was trying to pick his glasses up off the floor while he was sitting in a chair and he felt and heard a pop and had immediate pain in his right hip with shortening. He states it is very consistent with his prior history of dislocations. He states that he has been trying to be very careful in his actually using a device to help him pick things up off the floor and did not think that he was necessarily in a position where this would happened. He did receive fentanyl by EMS prior to arrival. Related Data Home Medications Medication Instructions Recorded Confirmed acetaminophen 500 mg tablet 1,000 mg PO Q6H PRN pain/ fever 02/19/20 04/26/23 (Tylenol Extra Strength) cholecalciferol (vitamin D3) 25 25 mcg PO DAILY 02/19/20 04/26/23 mcg (1,000 unit) capsule cyanocobalamin (vitamin B-12) 1,000 mcg PO DAILY 02/19/20 04/26/23 1,000 mcg tablet (Vitamin B-12) folic acid 400 mcg tablet 0.4 mg PO DAILY 02/19/20 04/26/23 lorazepam 1 mg tablet 1 mg PO QID 02/19/20 04/26/23 magnesium oxide 400 mg PO BID 02/19/20 04/26/23 multivitamin with minerals-folic 200 mcg PO DAILY 02/19/20 04/26/23 acid 200 mcg chewable tablet (Adult Multivitamin Gummies) omeprazole 20 mg capsule,delayed 20 mg PO BID 02/19/20 04/26/23 release oxycodone 5 mg tablet 5 mg PO Q4H PRN Pain (Scale Score 02/19/20 04/26/23 7-10) thiamine HCl (vitamin B1) 100 mg 100 mg PO DAILY 02/19/20 04/26/23 tablet gabapentin 400 mg PO TID 04/26/23 04/26/23 Allergies Allergy/AdvReac Type Severity Reaction Status Date / Time lisinopril Allergy Severe Swollen Verified 02/12/21 16:09 throat, lips and face Review of Systems Constitutional Constitutional: Reports system reviewed and no additional complaints, except as documented Musculoskeletal Musculoskeletal: Reports system reviewed and no additional complaints, except as documented Integumentary/Breasts Skin/Breast: Reports system reviewed and no additional complaints, except as documented Neurologic Neurologic: Reports system reviewed and no additional complaints, except as documented Patient History Medical History (Updated 05/12/23 @ 18:58 by Luis Sahu DO) Claustrophobia Pancreatitis GERD (gastroesophageal reflux disease) Hypertension Surgical History Tracheostomy status History of hip surgery Social History household members: family Smoking Status: Former smoker alcohol intake: former Smoking Status: Former smoker alcohol intake frequency: 0-2 drinks per day Alcohol type: hard liquor Substance Use Type: does not use Exam Initial Vital Signs Initial Vital Signs: Vital Signs Pulse Rate 68 05/12/23 15:33 Pulse Oximetry 100 05/12/23 15:33 Const General: cooperative and No ill appearing HENMT Head: normal to inspection and normocephalic Resp Effort & Inspection: normal respiratory effort Cardio Pulses: dorsalis pedis present on the right Skin General: no rashes or lesions noted Neuro Sensory Exam: no sensory deficits noted Extrem Other: Tenderness to palpation of the right hemipelvis. Right leg is shortened and externally rotated. Procedures Orthopedic Joint Reduction Joint #1: Side: right Joint Reduction Location: hip Analgesia: procedural sedation Technique used: direct manipulation Post-reduction neuro exam: no change Post-reduction vascular: no change Post Reduction X-Ray Obtained: Yes Post Reduction X-Ray Results: reduced Splint Applied: Yes Patient Tolerated Procedure: Well Orthopedic Splinting/Casting Injury #1: Side: right Lower Extremity Injury Location: upper leg (Hip) Lower Extremity Immobilizer: knee immobilizer Post splinting neuro exam: no change Post splinting vascular exam: no change Placed by: Nursing Procedural Sedation Consent signed: Yes Time out performed: Yes Indication: fracture/dislocation reduction ASA Class: II Mallampati Airway Classification: Class II Preparation: guard entrance registrar applied, pulse oximeter, capnometry used, supplemental O2 applied, suction/airway equipment at bedside and IV secured IV Propofol dose (mg): 150 Intraservice time/total sedation time (min): 15 ED Sedation Level: Moderate (Concious) Patient Tolerated Procedure: Well Complications: hypoxia Interventions: Airway repositioned, Assist by BVM and Oxygen applied Course Orders Ordered: ED Orders 05/12/23 15:35 XR hip w pel if done RT 2V Stat 05/12/23 18:21 XR hip w pel if done RT 2V Stat Sodium Chloride (Normal Saline 0.9%) 1,000 mls @ 125 mls/hr IV CONT GORDY Last Admin: 05/12/23 17:49 Dose: 125 mls/hr Documented By: NEHAL Discontinued Medications Hydromorphone HCl (Hydromorphone 1 Mg Inj) 1 mg IV NOW ONE Stop: 05/12/23 16:04 Last Admin: 05/12/23 16:25 Dose: 1 mg Documented By: NEHAL Propofol (Propofol 200 Mg/20 Ml Vial) 100 mg IV NOW ONE Stop: 05/12/23 17:38 Last Admin: 05/12/23 17:50 Dose: 100 mg Documented By: NEHAL Vital Signs Vital signs: Vital Signs - 8 hr 05/12/23 15:33 05/12/23 15:38 05/12/23 16:00 Temperature 98.1 F Pulse Rate 68 66 Respiratory Rate 18 Blood Pressure 129/103 H 136/85 Pulse Oximetry 100 100 Oxygen Delivery Method Room Air Oxygen Flow Rate 05/12/23 16:00 05/12/23 16:30 05/12/23 16:30 Temperature Pulse Rate 66 68 Respiratory Rate Blood Pressure 118/82 Pulse Oximetry 100 96 Oxygen Delivery Method Oxygen Flow Rate 05/12/23 17:00 05/12/23 17:00 05/12/23 17:30 Temperature Pulse Rate 71 71 Respiratory Rate Blood Pressure 126/78 Pulse Oximetry 97 97 Oxygen Delivery Method Oxygen Flow Rate 05/12/23 17:30 05/12/23 17:55 05/12/23 17:55 Temperature Pulse Rate 60 Respiratory Rate 7 L Blood Pressure 120/85 123/83 Pulse Oximetry 99 Oxygen Delivery Method Oxygen Flow Rate 05/12/23 18:00 05/12/23 18:00 05/12/23 18:05 Temperature Pulse Rate 62 Respiratory Rate 14 Blood Pressure 122/83 110/79 Pulse Oximetry 100 Oxygen Delivery Method Oxygen Flow Rate 05/12/23 18:05 05/12/23 18:10 05/12/23 18:10 Temperature Pulse Rate 61 59 L Respiratory Rate 11 L 12 Blood Pressure 122/81 Pulse Oximetry 100 100 Oxygen Delivery Method Oxygen Flow Rate 05/12/23 18:16 05/12/23 18:16 05/12/23 18:20 Temperature Pulse Rate 60 59 L Respiratory Rate 19 20 Blood Pressure 107/64 Pulse Oximetry 100 100 Oxygen Delivery Method Nasal Cannula Oxygen Flow Rate 2 05/12/23 18:20 05/12/23 18:25 05/12/23 18:25 Temperature Pulse Rate 58 L Respiratory Rate 10 L Blood Pressure 108/64 105/68 Pulse Oximetry 100 Oxygen Delivery Method Ambu Bag Oxygen Flow Rate 15 05/12/23 18:30 05/12/23 18:31 05/12/23 18:31 Temperature Pulse Rate 72 66 Respiratory Rate 24 14 Blood Pressure 121/82 Pulse Oximetry 100 100 Oxygen Delivery Method Ambu Bag Ambu Bag Oxygen Flow Rate 15 15 05/12/23 18:35 05/12/23 18:35 05/12/23 18:39 Temperature Pulse Rate 60 65 Respiratory Rate 13 16 Blood Pressure 120/80 Pulse Oximetry 100 Oxygen Delivery Method Room Air Oxygen Flow Rate 05/12/23 18:40 05/12/23 18:40 05/12/23 18:46 Temperature Pulse Rate 54 L Respiratory Rate 14 Blood Pressure 123/83 106/89 Pulse Oximetry 100 Oxygen Delivery Method Room Air Oxygen Flow Rate 05/12/23 18:46 05/12/23 18:50 05/12/23 18:51 Temperature Pulse Rate 63 64 Respiratory Rate 11 L 18 Blood Pressure 122/69 Pulse Oximetry 100 100 Oxygen Delivery Method Room Air Oxygen Flow Rate MDM - Extremity Injury (Lower) Imaging Data Extremity x-ray #1: Radiologist's Impression: PROCEDURE: XR HIP W PEL IF DONE RT 2V INDICATIONS: eval fx vs dislocation TECHNIQUE: AP pelvis and lateral view of the right hip acquired. COMPARISON: [facility] Outside Film, CR, XR PELVIS 1 OR 2 VIEWS, 04/25/2023, 21:56. [facility], CR, XR HIP W PEL IF DONE RT 2V, 04/26/2023, 8:47. FINDINGS: Bones: Patient is status post right hip arthroplasty. Femoral component of right hip arthroplasty is approximately dislocated. The visualized bony structures appear intact. Soft tissues: Overlying postoperative changes are noted. No suspicious soft tissue densities. IMPRESSION: Right hip arthroplasty dislocation Extremity x-ray #2: My Impression: Successful reduction of hip dislocation MDM Narrative Medical decision making narrative: Patient has had multiple dislocations of his right hip. He is scheduled for surgery in approximately 3 weeks from now. I did discuss the case with on-call Orthopedic surgery who asked that we attempt to reduce his hip here in the emergency department. He stated that given the complications of the injury this would not be a case that they would transfer? at on? to their surgery scheduled tomorrow and it does need to be scheduled because of the need for specialized eq uipment. After consent was signed the patient was sedated in his right hip was reduced. He was placed in a knee immobilizer. Will discharge patient home with return precautions. Discharge Plan Departure Patient Disposition: Home Clinical Impression: Dislocation, hip Activity Restrictions/Additional Instructions: Continue to take all of your medications as directed. The knee immobilizer can be helpful it trying to keep you out of positions were you could potentially dislocate your hip once again. I recommend that you use this device. Keep all of your scheduled medical appointments. Return to the emergency department for new or worsening symptoms. Prescriptions: No Action cyanocobalamin (vitamin B-12) [Vitamin B-12] 1,000 mcg Tablet 1,000 mcg PO DAILY thiamine HCl (vitamin B1) 100 mg Tablet 100 mg PO DAILY folic acid 400 mcg Tablet 0.4 mg PO DAILY acetaminophen [Tylenol Extra Strength] 500 mg Tablet 1,000 mg PO Q6H PRN (Reason: pain/ fever) omeprazole 20 mg Capsule,Delayed Release(Dr/Ec) 20 mg PO BID lorazepam 1 mg Tablet 1 mg PO QID oxycodone 5 mg Tablet 5 mg PO Q4H PRN (Reason: Pain (Scale Score 7-10)) Patient Comments: NOTE: filled 02/13--- 84 tablets and they are gone now. Dr. Klein aware. cholecalciferol (vitamin D3) 25 mcg (1,000 unit) Capsule 25 mcg PO DAILY Adult Multivitamin Gummies 200 mcg Tablet,Chewable 200 mcg PO DAILY magnesium oxide 400 mg magnesium Tablet 400 mg PO BID gabapentin 200 mg capsule 400 mg PO TID Referrals: Malachi Harmon DO [Primary Care Provider] - Stand Alone Forms: Patient Portal/API
[2023-05-12] MEDS: HYDROMORPHONE 1 MG INJ IV (16:25)
[2023-05-12] MEDS: SODIUM CHLORIDE 0.9% 1,000 ML 125 ML IV (17:49)
--- NOTE | 2023-05-12 18:21 | DI.RAD.S_ITS ---
PROCEDURE: XR HIP W PEL IF DONE RT 2V INDICATIONS: post reduction TECHNIQUE: AP pelvis with lateral view(s) of the right hip(s). COMPARISON: [facility], CR, XR PELVIS 1 OR 2 VIEWS, 04/25/2023, 21:56. [facility], CR, XR HIP W PEL IF DONE RT 2V, 05/12/2023, 15:42. FINDINGS: Bones: Interval reduction of right hip prosthesis dislocation. Femoral head position appears similar to an intraoperative post reduction film from 04/26/23. There is improved alignment with the osseous fragment of the proximal femur. The cerclage wire is discontinuous. 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 No new left hip or pelvic fractures Soft tissues: The visualized bowel gas pattern is normal. No suspicious soft tissue calcifications. IMPRESSION: Successful reduction of right hip prosthesis dislocation. Dictated by: Yana Shah M.D. on 05/12/2023 at 19:35 Approved by: Yana Shah M.D. on 05/12/2023 at 19:38
[2023-05-12] MEDS: propofoL 200 MG/20 ML VIAL 100 MG IV (18:57)
== END 2023-05-12 20:00 | disposition home or self-care (01) ==
PROVIDERS: Emergency Provider Emergency Medicine; PCP Family Medicine
DX: T84.020A Dislocation of internal right hip prosthesis, initial encounter (principal); R09.02 Hypoxemia; Z79.899 Other long term (current) drug therapy
CPT/HCPCS: 27265; 73502; 96361; 96374; 99152; 99284; 99285; J1170; J2704

== ENCOUNTER 2023-06-05 22:31 | Emergency (ER) | payer OTHER, MEDICAID, SELFPAY ==
[2023-04-26 01:30] VITALS: BMI 19.8
[2023-06-05 22:33] VITALS: BP 116/78
[2023-06-05 22:34] VITALS: PULSE 102; O2SAT 100
[2023-06-05 22:43] VITALS: BP 116/78; PULSE 100; RESP 15; TEMP 37.4; O2SAT 100; BMI 18.6
--- NOTE | 2023-06-05 22:54 | ED.RECABL ---
HPI - Recheck/Abnormal Lab/Rx General Chief Complaint: Recheck/Abnormal Lab/Rx Stated Complaint: hip surgical site bleeding. Time Seen by Provider: 06/05/23 22:47 Source: patient and EMS Mode of arrival: EMS History of Present Illness HPI narrative: Patient is a 58-year-old male. On Thursday underwent a revision of a right hip arthroplasty. 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 He states this morning he fell. He landed on his right hip. Also landed on his right side. He thinks that maybe he broke a rib is he has quite a bit of discomfort. EMS was called out to his house. They help him get up. He did not come in to be evaluated. This evening he was in bed. He woke up and found that his bandage was saturated and there was blood on his bed. He states that he thinks that he fell because he was wearing compression stockings that did not have insurance examining clerk on the bottom that he slipped on the floor. He does not think that his right hip has dislocated. Related Data Home Medications Medication Instructions Recorded Confirmed acetaminophen 500 mg tablet 1,000 mg PO Q6H PRN pain/ fever 02/19/20 04/26/23 (Tylenol Extra Strength) cholecalciferol (vitamin D3) 25 25 mcg PO DAILY 02/19/20 04/26/23 mcg (1,000 unit) capsule cyanocobalamin (vitamin B-12) 1,000 mcg PO DAILY 02/19/20 04/26/23 1,000 mcg tablet (Vitamin B-12) folic acid 400 mcg tablet 0.4 mg PO DAILY 02/19/20 04/26/23 lorazepam 1 mg tablet 1 mg PO QID 02/19/20 04/26/23 magnesium oxide 400 mg PO BID 02/19/20 04/26/23 multivitamin with minerals-folic 200 mcg PO DAILY 02/19/20 04/26/23 acid 200 mcg chewable tablet (Adult Multivitamin Gummies) omeprazole 20 mg capsule,delayed 20 mg PO BID 02/19/20 04/26/23 release oxycodone 5 mg tablet 5 mg PO Q4H PRN Pain (Scale Score 02/19/20 04/26/23 7-10) thiamine HCl (vitamin B1) 100 mg 100 mg PO DAILY 02/19/20 04/26/23 tablet gabapentin 400 mg PO TID 04/26/23 04/26/23 Previous Rx's Medication Instructions Recorded hydrocodone 5 mg-acetaminophen 325 1 tab PO Q8H PRN pain #6 tabs 05/12/23 mg tablet Allergies Allergy/AdvReac Type Severity Reaction Status Date / Time lisinopril Allergy Severe Swollen Verified 02/12/21 16:09 throat, lips and face Review of Systems Constitutional Constitutional: Reports system reviewed and no additional complaints, except as documented Respiratory Respiratory: Reports system reviewed and no additional complaints, except as documented Genitourinary Genitourinary: Reports system reviewed and no additional complaints, except as documented Musculoskeletal Musculoskeletal: Reports system reviewed and no additional complaints, except as documented Integumentary/Breasts Skin/Breast: Reports system reviewed and no additional complaints, except as documented Patient History Medical History Claustrophobia Pancreatitis GERD (gastroesophageal reflux disease) Hypertension Surgical History Tracheostomy status History of hip surgery Social History household members: family Smoking Status: Former smoker alcohol intake: former Smoking Status: Former smoker alcohol intake frequency: 0-2 drinks per day Alcohol type: hard liquor Substance Use Type: does not use Exam Initial Vital Signs Initial Vital Signs: Vital Signs Blood Pressure 116/78 06/05/23 22:33 HENMT Head: normal to inspection Chest Other: Discomfort with palpation of right lower chest wall Skin Other: Surgical incision appears well. No active bleeding. Expected surrounding bruising and erythema. Course Orders Ordered: ED Orders 06/05/23 22:54 XR hip w pel if done RT 2V Stat XR ribs RT min 3V w CXR1V Stat Discontinued Medications Hydrocodone Bitart/Acetaminophen (Hydrocodone/Acet 5/325 Prepack) 1 bottle MISC DIRECTED ONE Stop: 06/06/23 00:24 Last Admin: 06/06/23 00:45 Dose: 1 bottle Documented By: FAISAL Vital Signs Vital signs: Vital Signs - 8 hr 06/05/23 22:33 06/05/23 22:34 06/05/23 22:43 Temperature 99.3 F Pulse Rate 102 H 100 H Respiratory Rate 15 Blood Pressure 116/78 116/78 Pulse Oximetry 100 100 Oxygen Delivery Method Room Air MDM - Recheck/Abnormal Lab/Rx Imaging Data Extremity x-ray #1: Radiologist's Impression: PROCEDURE: XR HIP W PEL IF DONE RT 2V INDICATIONS: Recent surgery and fall TECHNIQUE: AP view of the pelvis and lateral view of the right hip acquired. COMPARISON: [facility], CR, XR HIP W PEL IF DONE RT 2V, 05/12/2023, 18:27. [facility], CR, XR HIP W PEL IF DONE RT 2V, 05/12/2023, 15:42. FINDINGS: Bones: Recent postsurgical changes are seen from revision right hip arthroplasty with replacement of the acetabular cup. Alignment of the hip prosthesis appears normal. Chronic ossifications are seen surrounding the proximal femoral stem component. The distal femoral stem component in distal femoral shaft appear to be intact. No acute osseous fracture identified. Degenerative changes are seen in the lumbar spine. Soft tissues: Soft tissue edema and foci of gas are seen overlying the right hip, likely related to recent postsurgical changes. IMPRESSION: Postsurgical changes from recent revision right hip arthroplasty. No definite acute hardware complication or acute osseous fracture is seen. Rib x-ray: Radiologist's Impression: PROCEDURE: XR RIBS RT MIN 3V W CXR 1V INDICATIONS: Fall with right lower rib pain TECHNIQUE: 2 views of the right ribs were acquired, along with a single view chest. COMPARISON: None. FINDINGS: Surgical changes and devices: None. Bones and chest wall: Questionable acute nondisplaced right lateral 8th rib fracture. Old healed bilateral rib fractures are present. No suspicious bony lesions. Overlying soft tissues appear unremarkable. Lungs and pleura: No pleural effusions or pneumothorax. Lungs appear clear. Mediastinum: Mediastinal contours appear normal. Heart size is normal. IMPRESSION: 1. Questionable acute nondisplaced right lateral 8th rib fracture. Recommend correlation for point tenderness. No pneumothorax. 2. Bilateral remote prior healed rib fractures. [facility] Narrative Medical decision making narrative: The bandage was removed from the surgical site. It did have dry blood on it. There was no active bleeding. A new bandage was replaced. I suspect that when he fell and landed on his right hip he caused some bleeding from the surgical wound although there does not appear to be any dehiscence. X-ray shows that the prosthesis is in appropriate position in the patient has not dislocated. His rib x-ray does show potential right-sided rib fracture. This does correspond to where he is having discomfort. He is not having any shortness of breath. No other injuries from the fall. I did discuss all of the findings with him. Will provide pain medication. Will discharge patient home with instructions to follow the instructions given him by the operative surgeon and to keep all of his scheduled follow-up appointments. He expressed understanding and agreement with plan. Discharge Plan Departure Patient Disposition: Home Clinical Impression: Postoperative bleeding from incision, Fracture of rib Instructions: DI for Rib Fracture Activity Restrictions/Additional Instructions: Recommend that you continue to take all of your medications as directed. Follow all of the instructions given to you by the surgeon. Keep all of your scheduled medical follow-up appointments. Return to the emergency department for new symptoms. Prescriptions: No Action cyanocobalamin (vitamin B-12) [Vitamin B-12] 1,000 mcg Tablet 1,000 mcg PO DAILY thiamine HCl (vitamin B1) 100 mg Tablet 100 mg PO DAILY folic acid 400 mcg Tablet 0.4 mg PO DAILY acetaminophen [Tylenol Extra Strength] 500 mg Tablet 1,000 mg PO Q6H PRN (Reason: pain/ fever) omeprazole 20 mg Capsule,Delayed Release(Dr/Ec) 20 mg PO BID lorazepam 1 mg Tablet 1 mg PO QID oxycodone 5 mg Tablet 5 mg PO Q4H PRN (Reason: Pain (Scale Score 7-10)) Patient Comments: NOTE: filled 02/13--- 84 tablets and they are gone now. Dr. Klein aware. cholecalciferol (vitamin D3) 25 mcg (1,000 unit) Capsule 25 mcg PO DAILY Adult Multivitamin Gummies 200 mcg Tablet,Chewable 200 mcg PO DAILY magnesium oxide 400 mg magnesium Tablet 400 mg PO BID gabapentin 200 mg capsule 400 mg PO TID hydrocodone-acetaminophen 5-325 mg tablet 1 tab PO Q8H PRN (Reason: pain) Qty: 6 0RF Referrals: Malachi Harmon DO [Primary Care Provider] - Stand Alone Forms: Patient Portal/API
[2023-06-06] MEDS: HYDROCODONE/ACET 5/325 PREPACK 1 BOTTLE MISC (00:45)
== END 2023-06-06 00:52 | disposition home or self-care (01) ==
PROVIDERS: Emergency Provider Emergency Medicine; PCP Family Medicine
DX: L76.22 Postprocedural hemorrhage of skin and subcutaneous tissue following other procedure (principal); S22.31XA Fracture of one rib, right side, initial encounter for closed fracture; W19.XXXA Unspecified fall, initial encounter
CPT/HCPCS: 71101; 73502; 99281; 99283

== ENCOUNTER 2023-07-24 12:49 | Emergency (ER) | payer OTHER, MEDICAID, SELFPAY ==
[2023-04-26 01:30] VITALS: BMI 19.8
[2023-07-24] VITALS (26 sets, daily range): BP systolic 123–155; BP diastolic 67–91; PULSE 51–99; RESP 11–24; TEMP 36.9; O2SAT 95–100; BMI 19.5
--- NOTE | 2023-07-24 13:14 | DI.RAD.S_ITS ---
PROCEDURE: XR SHOULDER LT MIN 2V INDICATIONS: fall, pain TECHNIQUE: A total of 2 views of the shoulder were acquired. COMPARISON: None. FINDINGS: Bones: No fractures but there is an anterior subcoracoid dislocation at the left shoulder. No suspicious bony lesions. Visualized ribs appear free of acute trauma but old fractures are noted at the posterior upper left hemithorax. Soft tissues: No suspicious soft tissue calcifications. IMPRESSION: Anterior subcoracoid dislocation. Old left posterior rib fractures are incidentally noted. Dictated by: Hubert Crespo M.D. on 07/24/2023 at 13:55 Approved by: Hubert Crespo M.D. on 07/24/2023 at 13:55
--- NOTE | 2023-07-24 13:14 | DI.RAD.S_ITS ---
PROCEDURE: XR HUMERUS LT 2V INDICATIONS: fall, pain TECHNIQUE: 3 views of the humerus were acquired. COMPARISON: None. FINDINGS: Bones: No fractures but there is an anterior subcoracoid shoulder joint dislocation. No suspicious bony lesions. Soft tissues: No suspicious soft tissue calcifications. IMPRESSION: Anterior subcoracoid dislocation.. Dictated by: Hubert Crespo M.D. on 07/24/2023 at 13:54 Approved by: Hubert Crespo M.D. on 07/24/2023 at 13:54
--- NOTE | 2023-07-24 13:59 | ED.GENADULT ---
HPI - General Adult General Chief complaint: Extremity Injury, Upper Stated complaint: GLF Last Night Time Seen by Provider: 07/24/23 13:45 Source: patient and EMS Mode of arrival: EMS History of Present Illness HPI narrative: Patient is a 58-year-old male. Brought in by EMS for evaluation of a left shoulder injury. He states that last evening he was getting up off the toilet after having a bowel movement. He states he just lost his balance and fell over and hit his left shoulder on the wall. He thinks that he dislocated his shoulder. He has dislocated his right shoulder in the past and potentially as dislocated his left shoulder but he has not 100% certain. He reports no other injuries from the event. He did not hit his head. No hip pain. He thought that maybe his shoulder would just go back in on its own which is why he waited until today to come in. He received 10 mg of morphine by EMS prior to arrival. Related Data Home Medications Medication Instructions Recorded Confirmed acetaminophen 500 mg tablet 1,000 mg PO Q6H PRN pain/ fever 02/19/20 04/26/23 (Tylenol Extra Strength) cholecalciferol (vitamin D3) 25 25 mcg PO DAILY 02/19/20 04/26/23 mcg (1,000 unit) capsule cyanocobalamin (vitamin B-12) 1,000 mcg PO DAILY 02/19/20 04/26/23 1,000 mcg tablet (Vitamin B-12) folic acid 400 mcg tablet 0.4 mg PO DAILY 02/19/20 04/26/23 lorazepam 1 mg tablet 1 mg PO QID 02/19/20 04/26/23 magnesium oxide 400 mg PO BID 02/19/20 04/26/23 multivitamin with minerals-folic 200 mcg PO DAILY 02/19/20 04/26/23 acid 200 mcg chewable tablet (Adult Multivitamin Gummies) omeprazole 20 mg capsule,delayed 20 mg PO BID 02/19/20 04/26/23 release oxycodone 5 mg tablet 5 mg PO Q4H PRN Pain (Scale Score 02/19/20 04/26/23 7-10) thiamine HCl (vitamin B1) 100 mg 100 mg PO DAILY 02/19/20 04/26/23 tablet gabapentin 400 mg PO TID 04/26/23 04/26/23 Previous Rx's Medication Instructions Recorded hydrocodone 5 mg-acetaminophen 325 1 tab PO Q8H PRN pain #6 tabs 05/12/23 mg tablet hydrocodone 5 mg-acetaminophen 325 1 tab PO Q4-6H PRN pain #10 tabs 07/24/23 mg tablet Allergies Allergy/AdvReac Type Severity Reaction Status Date / Time lisinopril Allergy Severe Swollen Verified 07/24/23 15:21 throat, lips and face Review of Systems Constitutional Constitutional: Reports system reviewed and no additional complaints, except as documented Musculoskeletal Musculoskeletal: Reports system reviewed and no additional complaints, except as documented Integumentary/Breasts Skin/Breast: Reports system reviewed and no additional complaints, except as documented Neurologic Neurologic: Reports system reviewed and no additional complaints, except as documented Hematologic/Lymphatic On Anticoagulants: No Patient History Medical History (Updated 07/24/23 @ 15:29 by Luis Sahu DO) Claustrophobia Pancreatitis GERD (gastroesophageal reflux disease) Hypertension Surgical History Tracheostomy status History of hip surgery Social History household members: family Smoking Status: Former smoker alcohol intake: former Smoking Status: Former smoker alcohol intake frequency: 0-2 drinks per day Alcohol type: hard liquor Substance Use Type: does not use Exam Initial Vital Signs Initial Vital Signs: Vital Signs Temperature 98.4 F 07/24/23 13:11 Pulse Rate 72 07/24/23 13:11 Respiratory Rate 16 07/24/23 13:11 Blood Pressure 127/68 07/24/23 13:11 Pulse Oximetry 100 07/24/23 13:11 Oxygen Delivery Method Room Air 07/24/23 13:11 [facility] Head: normal to inspection and normocephalic Cardio Pulses: radial pulses present on the left Skin General: no rashes or lesions noted Neuro Other: Sensation intact to light touch over the left deltoid Extrem Other: Obvious deformity of the left shoulder. Procedures Orthopedic Joint Reduction Joint #1: Time Out Performed: Yes Side: left Joint Reduction Location: shoulder Analgesia: procedural sedation Shoulder Technique Used (if applicable): Milch Post-reduction neuro exam: no change Post-reduction vascular: no change Post Reduction X-Ray Obtained: Yes Post Reduction X-Ray Results: reduced Splint Applied: Yes (Sling) Orthopedic Splinting/Casting Injury #1: Side: left Upper Extremity Injury Location: shoulder Upper Extremity Immobilizer: sling/shoulder immobilizer Post splinting neuro exam: no change Post splinting vascular exam: no change Placed by: Nursing Procedural Sedation Consent signed: Yes Time out performed: Yes Indication: fracture/dislocation reduction ASA Class: III Mallampati Airway Classification: Class II Preparation: cafeteria monitor applied, pulse oximeter, capnometry used, supplemental O2 applied, suction/airway equipment at bedside and IV secured IV Propofol dose (mg): 200 Intraservice time/total sedation time (min): 15 ED Sedation Level: Moderate (Concious) Patient Tolerated Procedure: No complications Complications: none Course Orders Ordered: ED Orders 07/24/23 13:14 XR humerus LT 2V Stat XR shoulder LT min 2V Stat 07/24/23 14:40 XR shoulder LT min 2V Stat XR wrist LT min 3V Stat Sodium Chloride (Normal Saline 0.9%) 1,000 mls @ 125 mls/hr IV CONT GORDY Last Admin: 07/24/23 14:15 Dose: 125 mls/hr Documented By: DINO Discontinued Medications Hydromorphone HCl (Hydromorphone 1 Mg Inj) 1 mg IV NOW ONE Stop: 07/24/23 14:03 Last Admin: 07/24/23 14:15 Dose: 1 mg Documented By: DINO Propofol (Propofol 200 Mg/20 Ml Vial) 100 mg IV NOW ONE Stop: 07/24/23 13:50 Last Admin: 07/24/23 14:28 Dose: 100 mg Propofol (Propofol 200 Mg/20 Ml Vial) 100 mg IV NOW ONE Stop: 07/24/23 14:42 Last Admin: 07/24/23 14:34 Dose: 100 mg Vital Signs Vital signs: Vital Signs - 8 hr 07/24/23 13:11 07/24/23 13:33 07/24/23 14:08 Temperature 98.4 F Pulse Rate 72 71 59 L Respiratory Rate 16 16 Blood Pressure 127/68 Pulse Oximetry 100 99 100 Oxygen Delivery Method Room Air 07/24/23 14:08 07/24/23 14:15 07/24/23 14:18 Temperature Pulse Rate 60 66 Respiratory Rate 18 12 Blood Pressure 150/81 H Pulse Oximetry 100 Oxygen Delivery Method 07/24/23 14:18 07/24/23 14:20 07/24/23 14:20 Temperature Pulse Rate 69 Respiratory Rate 13 Blood Pressure 147/83 H 146/82 H Pulse Oximetry 100 Oxygen Delivery Method 07/24/23 14:25 07/24/23 14:25 07/24/23 14:30 Temperature Pulse Rate 62 Respiratory Rate 14 Blood Pressure 147/82 H 134/81 Pulse Oximetry 100 Oxygen Delivery Method 07/24/23 14:30 07/24/23 14:35 07/24/23 14:35 Temperature Pulse Rate 66 64 Respiratory Rate 22 22 Blood Pressure 133/77 Pulse Oximetry 100 100 Oxygen Delivery Method 07/24/23 14:40 07/24/23 14:41 07/24/23 14:41 Temperature Pulse Rate 68 59 L Respiratory Rate 18 22 Blood Pressure 123/79 Pulse Oximetry 99 95 Oxygen Delivery Method 07/24/23 14:45 07/24/23 14:45 07/24/23 14:50 Temperature Pulse Rate 55 L Respiratory Rate 24 Blood Pressure 128/79 132/82 Pulse Oximetry 99 Oxygen Delivery Method 07/24/23 14:50 07/24/23 14:55 07/24/23 14:55 Temperature Pulse Rate 59 L 51 L Respiratory Rate 19 20 Blood Pressure 136/81 Pulse Oximetry 100 100 Oxygen Delivery Method 07/24/23 15:00 07/24/23 15:00 07/24/23 15:05 Temperature Pulse Rate 52 L 80 Respiratory Rate 13 22 Blood Pressure 136/83 Pulse Oximetry 100 Oxygen Delivery Method 07/24/23 15:10 Temperature Pulse Rate 64 Respiratory Rate 22 Blood Pressure Pulse Oximetry Oxygen Delivery Method Medical Decision Making Imaging Data Extremity x-ray #1: Radiologist's Impression: PROCEDURE: XR SHOULDER LT MIN 2V INDICATIONS: fall, pain TECHNIQUE: A total of 2 views of the shoulder were acquired. COMPARISON: None. FINDINGS: Bones: No fractures but there is an anterior subcoracoid dislocation at the left shoulder. No suspicious bony lesions. Visualized ribs appear free of acute trauma but old fractures are noted at the posterior upper left hemithorax. Soft tissues: No suspicious soft tissue calcifications. IMPRESSION: Anterior subcoracoid dislocation. Old left posterior rib fractures are incidentally noted. Extremity x-ray #2: Radiologist's Impression: PROCEDURE: XR HUMERUS LT 2V INDICATIONS: fall, pain TECHNIQUE: 3 views of the humerus were acquired. COMPARISON: None. FINDINGS: Bones: No fractures but there is an anterior subcoracoid shoulder joint dislocation. No suspicious bony lesions. Soft tissues: No suspicious soft tissue calcifications. IMPRESSION: Anterior subcoracoid dislocation.. post reduction X-ray: Radiologist's Impression: ROCEDURE: XR SHOULDER LT MIN 2V INDICATIONS: post reduction TECHNIQUE: 2. views of the shoulder were acquired. COMPARISON: [facility], , XR SHOULDER LT MIN 2V, 07/24/2023, 13:16. FINDINGS: Bones: Since the prior study, dislocated left shoulder has been reduced. Questionable Hill-Sachs deformity of the humeral head. Of left rib fractures are seen. Soft tissues: No suspicious soft tissue calcifications. IMPRESSION: Interval reduction of left shoulder dislocation. Possible Hill-Sachs deformity humeral head. Wrist X-ray: Radiologist's Impression: PROCEDURE: XR WRIST LT MIN 3V INDICATIONS: WRIST PAIN TECHNIQUE: 3. views of the wrist were acquired. COMPARISON: None. FINDINGS: Bones: Intramedullary jyotsna and cortical side plate of the distal radius and ulna is identified. Lucency around the ulnar component measuring up 6 mm is seen. This may represent loosening or infection. No lucency seen around the radial component . 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 On the lateral view, slight posterior displacement of the lunate over the radius noted. Soft tissues: No suspicious soft tissue calcifications. tt IMPRESSION: 1. Lucency around the ulnar component of the orthopedic hardware may represent loosening or infection. Correlate clinically. 2. Findings suggesting SLAC wrist. 3. Abnormal angulation of the lunate over distal radius may be related to chronic trauma/DJD. MDM Narrative Medical decision making narrative: Successful reduction of the left shoulder. It does appear that he has a Hill-Sachs deformity which is not surprising given that he has been dislocated for greater than 12 hours. His wrist x-ray also shows potential loosening of the hardware but this is not necessarily new from the fall last evening. Patient was instructed to follow up with Orthopedic surgery. Sling for comfort. He was given return precautions and follow-up instructions. He expressed understanding and agreement. Discharge Plan Departure Patient Disposition: Home Clinical Impression: Anterior shoulder dislocation Instructions: How to Use a Sling, DI for Shoulder Dislocation Activity Restrictions/Additional Instructions: It is important that you follow-up with orthopedic surgery for both your shoulder and also your wrist. You are going to need physical therapy. The sling is for your comfort. You can take it off to shower and to change clothes. Recommend that after 48 hours you try to spend as much time as possible out of the sling. Return to the emergency department for new symptoms. Prescriptions: New hydrocodone-acetaminophen 5-325 mg tablet 1 tab PO Q4-6H PRN (Reason: pain) Qty: 10 0RF No Action cyanocobalamin (vitamin B-12) [Vitamin B-12] 1,000 mcg Tablet 1,000 mcg PO DAILY thiamine HCl (vitamin B1) 100 mg Tablet 100 mg PO DAILY folic acid 400 mcg Tablet 0.4 mg PO DAILY acetaminophen [Tylenol Extra Strength] 500 mg Tablet 1,000 mg PO Q6H PRN (Reason: pain/ fever) omeprazole 20 mg Capsule,Delayed Release(Dr/Ec) 20 mg PO BID lorazepam 1 mg Tablet 1 mg PO QID oxycodone 5 mg Tablet 5 mg PO Q4H PRN (Reason: Pain (Scale Score 7-10)) Patient Comments: NOTE: filled 02/13--- 84 tablets and they are gone now. Dr. Klein aware. cholecalciferol (vitamin D3) 25 mcg (1,000 unit) Capsule 25 mcg PO DAILY Adult Multivitamin Gummies 200 mcg Tablet,Chewable 200 mcg PO DAILY magnesium oxide 400 mg magnesium Tablet 400 mg PO BID gabapentin 200 mg capsule 400 mg PO TID hydrocodone-acetaminophen 5-325 mg tablet 1 tab PO Q8H PRN (Reason: pain) Qty: 6 0RF Referrals: Sindy Ramos PA-C [Primary Care Provider] - Jorge Luis Davenport MD [Physician] - Stand Alone Forms: Patient Portal/API
[2023-07-24] MEDS: HYDROMORPHONE 1 MG INJ IV (14:15)
[2023-07-24] MEDS: SODIUM CHLORIDE 0.9% 1,000 ML 125 ML IV (14:15)
[2023-07-24] MEDS: propofoL 200 MG/20 ML VIAL 100 MG IV ×2 (14:28→14:34)
--- NOTE | 2023-07-24 14:40 | DI.RAD.S_ITS ---
PROCEDURE: XR SHOULDER LT MIN 2V INDICATIONS: post reduction TECHNIQUE: 2. views of the shoulder were acquired. COMPARISON: [facility], , XR SHOULDER LT MIN 2V, 07/24/2023, 13:16. FINDINGS: Bones: Since the prior study, dislocated left shoulder has been reduced. Questionable Hill-Sachs deformity of the humeral head. Of left rib fractures are seen. Soft tissues: No suspicious soft tissue calcifications. IMPRESSION: Interval reduction of left shoulder dislocation. Possible Hill-Sachs deformity humeral head. Dictated by: Kentrell Porter M.D. on 07/24/2023 at 15:13 Approved by: Kentrell Porter M.D. on 07/24/2023 at 15:16
--- NOTE | 2023-07-24 14:40 | DI.RAD.S_ITS ---
PROCEDURE: XR WRIST LT MIN 3V INDICATIONS: WRIST PAIN TECHNIQUE: 3. views of the wrist were acquired. COMPARISON: None. FINDINGS: Bones: Intramedullary jyotsna and cortical side plate of the distal radius and ulna is identified. Lucency around the ulnar component measuring up 6 mm is seen. This may represent loosening or infection. No lucency seen around the radial component . 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 On the lateral view, slight posterior displacement of the lunate over the radius noted. Soft tissues: No suspicious soft tissue calcifications. tt IMPRESSION: 1. Lucency around the ulnar component of the orthopedic hardware may represent loosening or infection. Correlate clinically. 2. Findings suggesting SLAC wrist. 3. Abnormal angulation of the lunate over distal radius may be related to chronic trauma/DJD. Dictated by: Kentrell Porter M.D. on 07/24/2023 at 15:16 Approved by: Kentrell Porter M.D. on 07/24/2023 at 15:24
--- NOTE | 2023-07-24 14:43 | PC.NURSE ---
procedural sedation: L shoulder dislocation team at bedside: hilary RN, Negrita RT, Evie RN, Carolina food technician, Dr. Sahu time out: 1426 start time: 1426 1428: 50mg prop IV given by Dr. Sahu 1430: 20mg prop IV given 1431: 20mg prop IV 1433: 10mg prop IV 1434: 20mg prop IV 1435: 30mg prop IV 1438: 50mg prop IV total IV prop: 200mg end time: 1441 1446: x-ray at bedside 1455: sling placed to L shoulder w/o issue 1455: awake, alert, oriented, denies nausea, requesting food and water
--- NOTE | 2023-07-24 15:08 | RT ---
Called to bedside for PRS, shoulder disc. Bag mask unit at [facility] with suction on and functional. Pt amy well, on 2 lpm nc and no distress noted. Pt alert on room air and released by Rn.
--- NOTE | 2023-07-24 15:14 | PC.NURSE ---
pt able to stand and use urinal with stand by assist. fully awake.
[2023-07-24] MEDS: HYDROCODONE/ACET 5/325 TABLET 1 TAB PO (15:57)
== END 2023-07-24 16:19 | disposition home or self-care (01) ==
PROVIDERS: Emergency Provider Emergency Medicine; PCP Physician Assistant
DX: S43.085A Other dislocation of left shoulder joint, initial encounter (principal); M25.532 Pain in left wrist; W18.30XA Fall on same level, unspecified, initial encounter
CPT/HCPCS: 23650; 73030; 73060; 73110; 96374; 99152; 99284; 99285; J1170; J2704

== ENCOUNTER 2023-07-28 17:35 | Emergency (ER) | payer OTHER, SELFPAY ==
[2023-04-26 01:30] VITALS: BMI 19.8
[2023-07-28] VITALS (43 sets, daily range): BP systolic 118–162; BP diastolic 73–97; PULSE 76–96; RESP 7–40; TEMP 37.2–37.4; O2SAT 88–100; BMI 18.6
--- NOTE | 2023-07-28 17:41 | DI.RAD.S_ITS ---
PROCEDURE: XR SHOULDER LT MIN 2V INDICATIONS: fall, h/o dislocations TECHNIQUE: 2 views of the shoulder were acquired. COMPARISON: [facility], CR, XR SHOULDER LT MIN 2V, 07/24/2023, 14:43. FINDINGS: Bones: There is slight appearance of inferior medial subluxation of the humeral head. Soft tissues: No suspicious soft tissue calcifications. IMPRESSION: Inferior medial subluxation borderline for dislocation. Recommend clinical correlation. No visualized fracture. Dictated by: Alexa Palumbo M.D. on 07/28/2023 at 18:49 Approved by: Alexa Palumbo M.D. on 07/28/2023 at 18:50
--- NOTE | 2023-07-28 18:13 | ED.UPPEXIN ---
HPI - Extremity Injury (Upper) General Chief Complaint: Extremity Injury, Upper Stated Complaint: c/o L shoulder pain Time Seen by Provider: 07/28/23 17:53 Source: EMS Mode of arrival: EMS History of Present Illness HPI narrative: 58-year-old male presents for recurrent left shoulder dislocation. Seen here 4 days prior for exact same, reduced and discharged home in shoulder sling. Patient states that he stumbled into the wall when this happened. Denies head injury. Denies any other complaint. Related Data Home Medications Medication Instructions Recorded Confirmed acetaminophen 500 mg tablet 1,000 mg PO Q6H PRN pain/ fever 02/19/20 04/26/23 (Tylenol Extra Strength) cholecalciferol (vitamin D3) 25 25 mcg PO DAILY 02/19/20 04/26/23 mcg (1,000 unit) capsule cyanocobalamin (vitamin B-12) 1,000 mcg PO DAILY 02/19/20 04/26/23 1,000 mcg tablet (Vitamin B-12) folic acid 400 mcg tablet 0.4 mg PO DAILY 02/19/20 04/26/23 lorazepam 1 mg tablet 1 mg PO QID 02/19/20 04/26/23 magnesium oxide 400 mg PO BID 02/19/20 04/26/23 multivitamin with minerals-folic 200 mcg PO DAILY 02/19/20 04/26/23 acid 200 mcg chewable tablet (Adult Multivitamin Gummies) thiamine HCl (vitamin B1) 100 mg 100 mg PO DAILY 02/19/20 04/26/23 tablet gabapentin 400 mg PO TID 04/26/23 04/26/23 hydromorphone 4 mg tablet 4 mg PO QID PRN Pain (Scale Score 07/28/23 07/28/23 7-10) Previous Rx's Medication Instructions Recorded hydrocodone 5 mg-acetaminophen 325 1 tab PO Q4-6H PRN pain #10 tabs 07/24/23 mg tablet cyclobenzaprine 10 mg tablet 10 mg PO BID #20 tabs 07/28/23 Allergies Allergy/AdvReac Type Severity Reaction Status Date / Time lisinopril Allergy Severe Swollen Verified 07/28/23 17:40 throat, lips and face Review of Systems Review of Systems Narrative: Negative except as noted above Patient History Medical History Claustrophobia Pancreatitis GERD (gastroesophageal reflux disease) Hypertension Surgical History Tracheostomy status History of hip surgery Social History household members: family Smoking Status: Former smoker alcohol intake: former Smoking Status: Former smoker alcohol intake frequency: 0-2 drinks per day Alcohol type: hard liquor Substance Use Type: does not use Exam Initial Vital Signs Initial Vital Signs: Vital Signs Temperature 99.0 F 07/28/23 17:37 Pulse Rate 90 07/28/23 17:37 Respiratory Rate 14 07/28/23 17:37 Blood Pressure 141/87 H 07/28/23 17:37 Pulse Oximetry 99 07/28/23 17:37 Oxygen Delivery Method Room Air 07/28/23 17:37 Const: Awake, alert, appears chronically unwell, older than stated age Eyes: PERRL, EOMI, pupils pinpoint Cardiac: regular rate, regular rhythm RESP: unlabored, clear bilaterally, no wheezing MSK: Obvious deformity left shoulder, range of motion limited due to pain, intact radial pulses, intact movement wrist and fingers Skin: Warm, Dry, intact, no rashes Neuro: AO x3, CN II-XII grossly intact, moves all extremities Procedures Orthopedic Joint Reduction Joint #1: Time Out Performed: Yes Side: left Joint Reduction Location: shoulder Analgesia: procedural sedation Shoulder Technique Used (if applicable): traction/counter-traction Technique used: traction/counter-traction and direct manipulation Post-reduction neuro exam: intact Post-reduction vascular: intact Post Reduction X-Ray Obtained: Yes Post Reduction X-Ray Results: reduced Splint Applied: Yes Patient Tolerated Procedure: Well and No complications Procedural Sedation Consent signed: Yes Time out performed: Yes Indication: fracture/dislocation reduction ASA Class: III Mallampati Airway Classification: Class I Time of Last PO Intake: 12:00 Preparation: registered occupational therapist applied, pulse oximeter, capnometry used, supplemental O2 applied, reversal agents at bedside, suction/airway equipment at bedside and IV secured IV Propofol dose (mg): 100 IV Etomidate dose (mg): 15 ED Sedation Level: Moderate (Concious) Patient Tolerated Procedure: Well and No complications Course Orders Ordered: ED Orders 07/28/23 17:41 XR shoulder LT min 2V Stat 07/28/23 20:03 XR shoulder LT 1V Stat Discontinued Medications Etomidate (Etomidate 2 Mg/Ml 10 Ml Vial) 15 mg IV NOW ONE Stop: 07/28/23 18:58 Last Admin: 07/28/23 19:57 Dose: 15 mg Documented By: KEVIN Propofol (Propofol 200 Mg/20 Ml Vial) 150 mg 2 mg/kg (150 mg) IV NOW ONE Stop: 07/28/23 19:59 Last Admin: 07/28/23 20:01 Dose: 100 mg Documented By: KEVIN Vital Signs Vital signs: Vital Signs - 8 hr 07/28/23 17:37 07/28/23 17:37 07/28/23 17:37 Temperature 99.0 F Pulse Rate 90 92 H Respiratory Rate 14 Blood Pressure 141/87 H 141/87 H Pulse Oximetry 99 99 Oxygen Delivery Method Room Air Oxygen Flow Rate 07/28/23 17:40 07/28/23 17:45 07/28/23 17:50 Temperature Pulse Rate 89 86 91 H Respiratory Rate Blood Pressure Pulse Oximetry 99 98 98 Oxygen Delivery Method Oxygen Flow Rate 07/28/23 17:55 07/28/23 18:00 07/28/23 18:00 Temperature Pulse Rate 88 88 Respiratory Rate Blood Pressure 130/86 Pulse Oximetry 97 95 Oxygen Delivery Method Oxygen Flow Rate 07/28/23 18:05 07/28/23 18:10 07/28/23 18:15 Temperature Pulse Rate 91 H 91 H 88 Respiratory Rate Blood Pressure Pulse Oximetry 92 88 L 88 L Oxygen Delivery Method Oxygen Flow Rate 07/28/23 18:20 07/28/23 18:25 07/28/23 18:30 Temperature Pulse Rate 92 H 87 Respiratory Rate Blood Pressure 121/73 Pulse Oximetry 98 95 Oxygen Delivery Method Oxygen Flow Rate 07/28/23 18:30 07/28/23 18:35 07/28/23 18:40 Temperature Pulse Rate 85 93 H 87 Respiratory Rate Blood Pressure Pulse Oximetry 94 94 93 Oxygen Delivery Method Oxygen Flow Rate 07/28/23 18:45 07/28/23 18:50 07/28/23 18:55 Temperature Pulse Rate 90 88 90 Respiratory Rate Blood Pressure Pulse Oximetry 98 94 97 Oxygen Delivery Method Oxygen Flow Rate 07/28/23 19:00 07/28/23 19:00 07/28/23 19:05 Temperature Pulse Rate 84 80 Respiratory Rate 24 Blood Pressure 162/97 H Pulse Oximetry 97 99 Oxygen Delivery Method Oxygen Flow Rate 07/28/23 19:10 07/28/23 19:15 07/28/23 19:20 Temperature Pulse Rate 81 86 79 Respiratory Rate 14 16 19 Blood Pressure Pulse Oximetry 98 97 98 Oxygen Delivery Method Oxygen Flow Rate 07/28/23 19:25 07/28/23 19:30 07/28/23 19:30 Temperature Pulse Rate 83 81 Respiratory Rate 12 20 Blood Pressure 137/82 Pulse Oximetry 95 99 Oxygen Delivery Method Oxygen Flow Rate 07/28/23 19:35 07/28/23 19:40 07/28/23 19:43 Temperature 99.3 F Pulse Rate 80 80 81 Respiratory Rate 16 17 26 H Blood Pressure 137/82 Pulse Oximetry 99 99 99 Oxygen Delivery Method Oxygen Flow Rate 07/28/23 19:45 07/28/23 19:49 07/28/23 19:49 Temperature Pulse Rate 82 77 Respiratory Rate 15 17 Blood Pressure 124/76 Pulse Oximetry 96 98 Oxygen Delivery Method Oxygen Flow Rate 07/28/23 19:50 07/28/23 19:50 07/28/23 19:55 Temperature Pulse Rate 79 96 H Respiratory Rate 14 37 H Blood Pressure 126/77 Pulse Oximetry 97 98 Oxygen Delivery Method Oxygen Flow Rate 07/28/23 19:55 07/28/23 20:00 07/28/23 20:00 Temperature Pulse Rate 82 Respiratory Rate 40 H Blood Pressure 118/74 139/89 Pulse Oximetry 97 Oxygen Delivery Method Oxygen Flow Rate 07/28/23 20:05 07/28/23 20:05 07/28/23 20:08 Temperature Pulse Rate 76 91 H Respiratory Rate 15 28 H Blood Pressure 123/79 128/76 Pulse Oximetry 100 98 Oxygen Delivery Method Oxygen Flow Rate 10 07/28/23 20:08 07/28/23 20:10 07/28/23 20:10 Temperature Pulse Rate 86 91 H Respiratory Rate 18 28 H Blood Pressure 128/76 Pulse Oximetry 98 Oxygen Delivery Method Oxygen Flow Rate 07/28/23 20:15 07/28/23 20:15 07/28/23 20:20 Temperature Pulse Rate 84 Respiratory Rate 23 Blood Pressure 143/87 H 145/89 H Pulse Oximetry 98 Oxygen Delivery Method Oxygen Flow Rate 07/28/23 20:20 07/28/23 20:25 07/28/23 20:25 Temperature Pulse Rate 79 81 Respiratory Rate 15 17 Blood Pressure 146/90 H Pulse Oximetry 99 97 Oxygen Delivery Method Oxygen Flow Rate 07/28/23 20:30 07/28/23 20:30 07/28/23 20:35 Temperature Pulse Rate 83 80 Respiratory Rate 14 11 L Blood Pressure 127/79 Pulse Oximetry 96 98 Oxygen Delivery Method Oxygen Flow Rate 07/28/23 20:35 07/28/23 20:40 07/28/23 20:40 Temperature Pulse Rate 85 Respiratory Rate 7 L Blood Pressure 139/86 132/82 Pulse Oximetry 92 Oxygen Delivery Method Oxygen Flow Rate 07/28/23 20:45 07/28/23 20:45 07/28/23 20:50 Temperature Pulse Rate 85 Respiratory Rate 14 Blood Pressure 124/78 137/82 Pulse Oximetry 96 Oxygen Delivery Method Oxygen Flow Rate 07/28/23 20:50 Temperature Pulse Rate 79 Respiratory Rate 11 L Blood Pressure Pulse Oximetry 98 Oxygen Delivery Method Oxygen Flow Rate MDM - Extremity Injury (Upper) Differential Diagnosis Differential diagnosis: Likely sprain and strain of wrist, fracture of wrist and finger sprain MDM Narrative Medical decision making narrative: Recurrent shoulder dislocation. Neurovascularly intact. Attempted scapular manipulation, however patient was not cooperative with efforts and unable to tolerate the procedure due to pain. Procedural sedation with propofol and etomidate successfully reduced elbow with traction counter traction. Patient has secured in sling postprocedure. Ortho followup advised. Discharge Plan Departure Patient Disposition: Home Clinical Impression: Anterior shoulder dislocation Qualifiers: Encounter type: initial encounter Laterality: left Qualified Code(s): S43.015A - Anterior dislocation of left humerus, initial encounter Instructions: DI for Shoulder Dislocation, DI for Moderate Sedation Prescriptions: New cyclobenzaprine 10 mg tablet 10 mg PO BID Qty: 20 0RF No Action cyanocobalamin (vitamin B-12) [Vitamin B-12] 1,000 mcg Tablet 1,000 mcg PO DAILY thiamine HCl (vitamin B1) 100 mg Tablet 100 mg PO DAILY folic acid 400 mcg Tablet 0.4 mg PO DAILY acetaminophen [Tylenol Extra Strength] 500 mg Tablet 1,000 mg PO Q6H PRN (Reason: pain/ fever) lorazepam 1 mg Tablet 1 mg PO QID cholecalciferol (vitamin D3) 25 mcg (1,000 unit) Capsule 25 mcg PO DAILY Adult Multivitamin Gummies 200 mcg Tablet,Chewable 200 mcg PO DAILY magnesium oxide 400 mg magnesium Tablet 400 mg PO BID gabapentin 200 mg capsule 400 mg PO TID hydromorphone 4 mg tablet 4 mg PO QID PRN (Reason: Pain (Scale Score 7-10)) hydrocodone-acetaminophen 5-325 mg tablet 1 tab PO Q4-6H PRN (Reason: pain) Qty: 10 0RF Referrals: Sindy Ramos PA-C [Primary Care Provider] - Stand Alone Forms: Patient Portal/API
[2023-07-28] MEDS: ETOMIDATE 2 MG/ML 10 ML VIAL 15 MG IV (19:57)
[2023-07-28] MEDS: propofoL 200 MG/20 ML VIAL 150 MG IV (20:01)
--- NOTE | 2023-07-28 20:03 | DI.RAD.S_ITS ---
PROCEDURE: XR SHOULDER LT 1V INDICATIONS: post reduction TECHNIQUE: 1 views of the shoulder were acquired. COMPARISON: [facility], CR, XR SHOULDER LT MIN 2V, 07/28/2023, 17:45. [facility], CR, XR SHOULDER LT MIN 2V, 07/24/2023, 14:43. FINDINGS: Bones: Interval reduction. Alignment appears within normal limits on this one view series. Soft tissues: No suspicious soft tissue calcifications. IMPRESSION: Suspected successful post reduction. However, one view is not optimal for a confident call. Dictated by: Diogenes Ellis M.D. on 07/28/2023 at 21:08 Approved by: Diogenes Ellis M.D. on 07/28/2023 at 21:09
== END 2023-07-28 21:05 | disposition home or self-care (01) ==
PROVIDERS: Emergency Provider Emergency Medicine; PCP Physician Assistant
DX: S43.015A Anterior dislocation of left humerus, initial encounter (principal)
CPT/HCPCS: 23650; 73020; 73030; 99152; 99284; J2704

== ENCOUNTER 2024-03-22 09:34 | Emergency (ER) | payer OTHER, MEDICAID, SELFPAY ==
[2023-04-26 01:30] VITALS: BMI 19.8
[2024-03-22] VITALS (12 sets, daily range): BP systolic 125–152; BP diastolic 81–97; PULSE 65–81; RESP 12–18; TEMP 36.8; O2SAT 94–100; BMI 19.1
--- NOTE | 2024-03-22 09:33 | ED.GENADULT ---
HPI - General Adult General Chief complaint: Extremity Injury, Upper Stated complaint: L Shoulder Pain Time Seen by Provider: 03/22/24 09:35 History of Present Illness HPI narrative: 59-year-old gentleman with a history of recurrent left shoulder dislocation. He describes 4 times in the last 2 months. He has been seen in the [facility] to discuss surgical options. He was rolling over in bed and felt his left shoulder pop. He has in a moderate amount of pain at this time. Brought in by medics Related Data Home Medications Medication Instructions Recorded Confirmed acetaminophen 500 mg tablet 1,000 mg PO Q6H PRN pain/ fever 02/19/20 04/26/23 (Tylenol Extra Strength) cholecalciferol (vitamin D3) 25 25 mcg PO DAILY 02/19/20 04/26/23 mcg (1,000 unit) capsule cyanocobalamin (vitamin B-12) 1,000 mcg PO DAILY 02/19/20 04/26/23 1,000 mcg tablet (Vitamin B-12) folic acid 400 mcg tablet 0.4 mg PO DAILY 02/19/20 04/26/23 lorazepam 1 mg tablet 1 mg PO QID 02/19/20 04/26/23 magnesium oxide 400 mg PO BID 02/19/20 04/26/23 multivitamin with minerals-folic 200 mcg PO DAILY 02/19/20 04/26/23 acid 200 mcg chewable tablet (Adult Multivitamin Gummies) thiamine HCl (vitamin B1) 100 mg 100 mg PO DAILY 02/19/20 04/26/23 tablet gabapentin 400 mg PO TID 04/26/23 04/26/23 hydromorphone 4 mg tablet 4 mg PO QID PRN Pain (Scale Score 07/28/23 07/28/23 7-10) Previous Rx's Medication Instructions Recorded hydrocodone 5 mg-acetaminophen 325 1 tab PO Q4-6H PRN pain #10 tabs 07/24/23 mg tablet cyclobenzaprine 10 mg tablet 10 mg PO BID #20 tabs 07/28/23 oxycodone-acetaminophen 5 mg-325 1 tab PO Q6H PRN pain #14 tabs 03/22/24 mg tablet Allergies Allergy/AdvReac Type Severity Reaction Status Date / Time lisinopril Allergy Severe Swollen Verified 03/22/24 09:59 throat, lips and face Patient History Medical History (Updated 03/22/24 @ 11:32 by Maggie Crane MD) Claustrophobia Pancreatitis GERD (gastroesophageal reflux disease) Hypertension Surgical History Tracheostomy status History of hip surgery Social History household members: family Smoking Status: Former smoker alcohol intake: former Exam Initial Vital Signs Initial Vital Signs: General: Alert appropriate in no acute distress Respiratory: Able to speak in full sentences, no obvious respiratory distress Skin: No obvious rashes, warm and dry Neurologic: Grossly intact no obvious asymmetries or abnormalities Psych: appropriate insight and affect, cooperative Extremity: Left arm is tender, shoulder is clearly deformed no bruising or contusion, he is neurovascularly intact Procedures Orthopedic Joint Reduction Left shoulder: Time of procedure: 11:28 Time Out Performed: Yes Side: left Joint Reduction Location: shoulder Analgesia: procedural sedation Shoulder Technique Used (if applicable): traction/counter-traction, scapula manipulation and external rotation Post-reduction neuro exam: intact Post-reduction vascular: intact Post Reduction X-Ray Obtained: Yes Post Reduction X-Ray Results: reduced Splint Applied: Yes Patient Tolerated Procedure: Well Procedural Sedation ASA Class: II Mallampati Airway Classification: Class II Preparation: cardiac/vascular sonographer applied, pulse oximeter, capnometry used, supplemental O2 applied, suction/airway equipment at bedside and IV secured IV Propofol dose (mg): 300 (After 200 mg of propofol patient was alert and speaking) Intraservice time/total sedation time (min): 11 ED Sedation Level: Moderate (Concious) Patient Tolerated Procedure: Well Complications: hypoventilation Interventions: Assist by BVM Additional Comments: approx 10 breaths Course Orders Ordered: ED Orders 03/22/24 09:40 XR shoulder LT min 2V Stat Medical Decision Making MDM Narrative Medical decision making narrative: CC: Left shoulder dislocation Complicating co-morbidities: Multiple recurrent left shoulder dislocations Data collected from: patient Medical records reviewed: Prior records reviewed for sedation and reduction Differential considered: Dislocation, fracture, Exam documented above, pertinent findings include: Obvious abnormality to the left shoulder Imaging studies independently reviewed: Initial x-ray shows an anterior shoulder dislocation 2nd x-ray shows appropriate position humeral head with no fracture Treatments: Initially, with a history of so many reductions, tried simple hanging with gentle traction and shoulder manipulation with no change to symptoms. With shared decision-making we move to conscious sedation for children reduction Discussion: 59-year-old gentleman with recurrent left shoulder dislocation. He has an appointment in early April of the [facility] orthopedic [facility] to review this. He has been seen by local orthopedics who [facility]. At this point shoulder is relocated, he has in a splint, relatively stable and safe for discharge Discharge Plan Departure Patient Disposition: Home Clinical Impression: Anterior shoulder dislocation Qualifiers: Encounter type: initial encounter Laterality: left Qualified Code(s): S43.015A - Anterior dislocation of left humerus, initial encounter Instructions: DI for Shoulder Dislocation Activity Restrictions/Additional Instructions: Thank you for coming in today We are able to reduce her shoulder today. Given the fact that it has been out so many times over the last number of months, I was hopeful that reduction could be relatively simple however that was not the case. You did require significant sedation to get the muscles relaxed enough to get the shoulder to relocate appropriately. Unfortunately, even though the drive to [place] is inconvenient, with the recurrent episodes of dislocation I believe you do need the expertise offered by the [facility] orthopedics department. Please do keep this appointment. I have sent a prescription for Percocet, Tylenol plus oxycodone, to [facility] in [place]. Narcotics will help with pain but do make you constipated and there is potential for addiction. In the meantime, use the sling for comfort over the next couple of days. Please try to use your shoulder as little as possible. If you find that you are getting worse or develop any new symptoms, please feel free to return to the emergency department for further evaluation. Prescriptions: New oxycodone-acetaminophen 5-325 mg tablet 1 tab PO Q6H PRN (Reason: pain) Qty: 14 0RF No Action cyanocobalamin (vitamin B-12) [Vitamin B-12] 1,000 mcg Tablet 1,000 mcg PO DAILY thiamine HCl (vitamin B1) 100 mg Tablet 100 mg PO DAILY folic acid 400 mcg Tablet 0.4 mg PO DAILY acetaminophen [Tylenol Extra Strength] 500 mg Tablet 1,000 mg PO Q6H PRN (Reason: pain/ fever) lorazepam 1 mg Tablet 1 mg PO QID cholecalciferol (vitamin D3) 25 mcg (1,000 unit) Capsule 25 mcg PO DAILY Adult Multivitamin Gummies 200 mcg Tablet,Chewable 200 mcg PO DAILY magnesium oxide 400 mg magnesium Tablet 400 mg PO BID gabapentin 200 mg capsule 400 mg PO TID hydromorphone 4 mg tablet 4 mg PO QID PRN (Reason: Pain (Scale Score 7-10)) cyclobenzaprine 10 mg tablet 10 mg PO BID Qty: 20 0RF hydrocodone-acetaminophen 5-325 mg tablet 1 tab PO Q4-6H PRN (Reason: pain) Qty: 10 0RF Referrals: Sindy Ramos PA-C [Primary Care Provider] - Stand Alone Forms: Patient Portal/API
--- NOTE | 2024-03-22 09:40 | DI.RAD.S_ITS ---
PROCEDURE: XR SHOULDER LT 1V INDICATIONS: dislocation TECHNIQUE: 1 views of the shoulder were acquired. COMPARISON: [facility], CR, XR SHOULDER LT MIN 2V, 07/28/2023, 17:45. FINDINGS: Bones: There is anterior-inferior dislocation at glenohumeral joint. No obvious fracture is identified. No suspicious bony lesions. Visualized ribs appear intact. Soft tissues: No suspicious soft tissue calcifications. IMPRESSION: Anterior-inferior dislocation at glenohumeral joint. Dictated by: Farhat Ramirez M.D. on 03/22/2024 at 10:07 Approved by: Farhat Ramirez M.D. on 03/22/2024 at 10:07
[2024-03-22] MEDS: OXYCODONE/ACETAMINOPHEN 5/325 TABLET 1 TAB PO (10:06)
--- NOTE | 2024-03-22 10:23 | PC.NURSE ---
Pain medication given, Saline bags cobaned to L lower arm for counter weight and moving L arm in small circles per Dr. Crane's instruction.
[2024-03-22] MEDS: propofoL 200 MG/20 ML VIAL 300 MG IV (10:55)
--- NOTE | 2024-03-22 11:07 | DI.RAD.S_ITS ---
PROCEDURE: XR SHOULDER LT 1V INDICATIONS: relocation TECHNIQUE: 1 views of the shoulder were acquired. COMPARISON: [facility], CR, XR SHOULDER LT 1V, 03/22/2024, 9:42. FINDINGS: Bones: There is interval reduction of earlier noted anterior glenohumeral joint dislocation. Hill-Sachs deformity of indeterminate age is seen in posterior lateral humeral head. No dislocation. Shoulder alignment is anatomic. No suspicious bony lesions. Visualized ribs appear intact. Soft tissues: No suspicious soft tissue calcifications. IMPRESSION: Interval reduction of earlier noted glenohumeral joint dislocation with now anatomic shoulder alignment. Hill-Sachs deformity of indeterminate age seen in posterior lateral humeral head. No Bankart fracture. Dictated by: Farhat Ramirez M.D. on 03/22/2024 at 11:38 Approved by: Farhat Ramirez M.D. on 03/22/2024 at 11:39
--- NOTE | 2024-03-22 11:30 | PC.NURSE ---
Pt speaking clearly and in full sentences. Tolerating PO fluids
--- NOTE | 2024-03-22 11:40 | PC.NURSE ---
1055- 20mg prop, pt moved to supine position 1057- 80mg prop reduction attempt 1059- 40mg prop reduction attempt, pt too awake 1101- 60mg prop reduction attempt, pt too awake, 2L O2 1105- 100mg prop reduction successful, BVM used for approx 1 min 1112- Room air trial. Pt doing well, speaking in full sentences, taking deep breaths.
== END 2024-03-22 12:27 | disposition home or self-care (01) ==
PROVIDERS: Emergency Provider Emergency Medicine; PCP Physician Assistant; Referring Provider Emergency Medicine
DX: S43.015A Anterior dislocation of left humerus, initial encounter (principal)
CPT/HCPCS: 23650; 73020; 99152; 99284; J2704

== ENCOUNTER 2024-04-08 13:21 | Emergency (ER) | payer OTHER, SELFPAY ==
[2023-04-26 01:30] VITALS: BMI 19.8
[2024-04-08] VITALS (35 sets, daily range): BP systolic 140–180; BP diastolic 84–110; PULSE 75–94; RESP 9–26; TEMP 37.2; O2SAT 93–98; BMI 19.5
--- NOTE | 2024-04-08 | DI.RAD.S_ITS ---
PROCEDURE: XR SHOULDER LT MIN 2V INDICATIONS: POST REDUCTION TECHNIQUE: 2 views of the shoulder were acquired. COMPARISON: [facility], CR, XR SHOULDER LT 1V, 03/22/2024, 11:03. [facility], CR, XR HUMERUS LT 2V, 04/08/2024, 14:57. [facility], CR, XR SHOULDER LT MIN 2V, 04/08/2024, 13:54. FINDINGS: Bones: The left shoulder has been successfully relocated. There is a Hill-Sachs deformity seen. No cardiomegaly or deformity is seen. The acromioclavicular joint is widened to 9 mm. Remote left posterior rib fractures can be seen. Soft tissues: The cardiac contours are within normal limits. The aorta demonstrates calcification and tortuosity. The visualized lung demonstrates an unremarkable appearance. IMPRESSION: Left shoulder relocation. There is a chronic Hill-Sachs deformity present. There is widening of the acromioclavicular joint, which is suspicious for acromioclavicular separation. Additional findings: Remote left posterior rib fractures Dictated by: Niraj Ramsey M.D. on 04/08/2024 at 16:02 Approved by: Niraj Ramsey M.D. on 04/08/2024 at 16:04
--- NOTE | 2024-04-08 13:26 | DI.RAD.S_ITS ---
PROCEDURE: XR SHOULDER LT MIN 2V INDICATIONS: r/o L shoulder dislocation TECHNIQUE: 3 views of the shoulder were acquired. COMPARISON: [facility], [facility], XR SHOULDER LT MIN 2V, 07/28/2023, 17:45. FINDINGS: Bones: Humeral head is inferiorly located compared to glenohumeral joint space. No distinct fractures identified. Soft tissues: No suspicious soft tissue calcifications. IMPRESSION: Anterior dislocation without visualized fracture. Dictated by: Alexa Palumbo M.D. on 04/08/2024 at 14:14 Approved by: Alexa Palumbo M.D. on 04/08/2024 at 14:14
[2024-04-08] MEDS: HYDROMORPHONE 1 MG INJ 0.5 MG IV (14:17)
--- NOTE | 2024-04-08 14:18 | ED.UPPEXIN ---
HPI - Extremity Injury (Upper) General Chief Complaint: Extremity Injury, Upper Stated Complaint: L Shoulder D/L Time Seen by Provider: 04/08/24 14:18 History of Present Illness HPI narrative: 59-year-old male reports history of prior remote left shoulder dislocation, no prior left shoulder surgeries recalled, last night was walking and apparently ran into the side of a door way with impact anterior left shoulder onto door way, felt like it might be dislocated, felt like it might have gone back in, but then sensation that it came back out last night, though he did not seek care until this afternoon. No numbness or weakness to the left upper extremity. No other injuries. He had not black out. He has not take blood thinner medications. Related Data Home Medications Medication Instructions Recorded Confirmed acetaminophen 500 mg tablet 1,000 mg PO Q6H PRN pain/ fever 02/19/20 04/26/23 (Tylenol Extra Strength) cholecalciferol (vitamin D3) 25 25 mcg PO DAILY 02/19/20 04/26/23 mcg (1,000 unit) capsule cyanocobalamin (vitamin B-12) 1,000 mcg PO DAILY 02/19/20 04/26/23 1,000 mcg tablet (Vitamin B-12) folic acid 400 mcg tablet 0.4 mg PO DAILY 02/19/20 04/26/23 lorazepam 1 mg tablet 1 mg PO QID 02/19/20 04/26/23 magnesium oxide 400 mg PO BID 02/19/20 04/26/23 multivitamin with minerals-folic 200 mcg PO DAILY 02/19/20 04/26/23 acid 200 mcg chewable tablet (Adult Multivitamin Gummies) thiamine HCl (vitamin B1) 100 mg 100 mg PO DAILY 02/19/20 04/26/23 tablet gabapentin 400 mg PO TID 04/26/23 04/26/23 hydromorphone 4 mg tablet 4 mg PO QID PRN Pain (Scale Score 07/28/23 07/28/23 7-10) Previous Rx's Medication Instructions Recorded hydrocodone 5 mg-acetaminophen 325 1 tab PO Q4-6H PRN pain #10 tabs 07/24/23 mg tablet cyclobenzaprine 10 mg tablet 10 mg PO BID #20 tabs 07/28/23 oxycodone-acetaminophen 5 mg-325 1 tab PO Q6H PRN pain #14 tabs 03/22/24 mg tablet Allergies Allergy/AdvReac Type Severity Reaction Status Date / Time lisinopril Allergy Severe Swollen Verified 03/22/24 09:59 throat, lips and face Patient History Medical History (Updated 04/08/24 @ 17:58 by Kirt Gonzales MD) Claustrophobia Pancreatitis GERD (gastroesophageal reflux disease) Hypertension Surgical History Tracheostomy status History of hip surgery Social History household members: family Smoking Status: Former smoker alcohol intake: former Smoking Status: Former smoker alcohol intake frequency: holidays/special occasions only Alcohol type: hard liquor Substance Use Type: marijuana Exam Narrative Exam Narrative: GENERAL: Well-developed patient, in mild distress. HEAD: Atraumatic. Normocephalic. EYES: Pupils equal round and reactive. Extraocular motions intact. No scleral icterus. No injection or drainage. ENT: Nose without bleeding, purulent drainage. Throat without erythema, tonsillar hypertrophy or exudate. Airway patent. NECK: Trachea midline. Non tender CARDIOVASCULAR: Regular rate and rhythm without murmurs, gallops, or rubs. RESPIRATORY: Clear to auscultation. Breath sounds equal bilaterally. No wheezes, rales, or rhonchi. GASTROINTESTINAL: Abdomen soft, non-tender, nondistended. EXTREMITIES: Left shoulder anterior fullness, slight step-off, suspected anterior dislocation by physical exam, some tenderness along anterior shoulder. No tenderness at AC joint. No tenderness along the superior trapezius or along the scapular margin. No skin changes abrasion or redness or lacerations noted. Left upper extremity otherwise unremarkable. Right upper extremity and lower extremities unremarkable. Distal left extremity neurovascular intact, good cap refill fingers, good function flexion-extension of the hand wrist fingers BACK: Nontender without deformity or crepitance. No flank tenderness. NEURO: AOx3. Motor functions grossly nonfocal SKIN: No rash or erythema of visible areas Initial Vital Signs Initial Vital Signs: Vital Signs Temperature 98.9 F 04/08/24 13:27 Pulse Rate 87 04/08/24 13:27 Respiratory Rate 16 04/08/24 13:27 Blood Pressure 150/91 H 04/08/24 13:27 Pulse Oximetry 97 04/08/24 13:27 Oxygen Delivery Method Room Air 04/08/24 13:27 Procedures Orthopedic Joint Reduction Joint #1: Time of procedure: 17:00 Side: left Joint Reduction Location: shoulder Shoulder Technique Used (if applicable): external rotation Post-reduction neuro exam: intact Post-reduction vascular: intact Post Reduction X-Ray Obtained: Yes Post Reduction X-Ray Results: reduced Splint Applied: Yes Additional Comments: See separate procedural sedation note. Left anterior shoulder dislocation closed, IV propofol sedation, on 2nd attempt had palpable visual reduction, placed in sling. Post reduction x-ray looked anatomic, no obvious fracture. Tolerated well. See procedure notes for sedation and joint reduction, had been x2 attempts maneuver external rotation adduction internal rotation on 2nd attempt reduced palpably and visibly. Post reduction film shows anatomic position, and incidentally notes a remote appearing posterior rib fracture, no mention of pneumothorax, and also mentions a chronic appearing Hill-Sachs fracture deformity, and some widening of the AC joint. See radiology report Placed in sling. Follow up with Orthopedic surgery. Contact information for office of Dr. Chan given. Procedural Sedation Time of procedure: 16:58 Consent signed: Yes Time out performed: Yes Indication: fracture/dislocation reduction (Left shoulder closed dislocation, reduction procedure, no fracture) ASA Class: I Mallampati Airway Classification: Class I Time of Last PO Intake: 12:00 Preparation: IV secured IV Propofol dose (mg): 140 ED Sedation Level: Moderate (Concious) Patient Tolerated Procedure: Well Complications: none Additional Comments: Patient required multiple doses propofol, required 2 attempts for procedure reduction, palpable and visual reduction on 2nd attempt, no airway maneuvers required, returned to preprocedural baseline mental status and neuro status. Tolerated well Course Orders Ordered: Discontinued Medications Hydrocodone Bitart/Acetaminophen (Hydrocodone/Acet 5/325 Prepack) 1 bottle MISC DIRECTED ONE Stop: 04/08/24 17:53 Last Admin: 04/08/24 18:07 Dose: 1 bottle Documented By: HARLEY Hydromorphone HCl (Hydromorphone 1 Mg Inj) 0.5 mg IV NOW ONE Stop: 04/08/24 14:14 Last Admin: 04/08/24 14:17 Dose: 0.5 mg Documented By: WILVER Propofol (Propofol 200 Mg/20 Ml Vial) 200 mg IV NOW ONE Stop: 04/08/24 14:49 Last Admin: 04/08/24 16:38 Dose: 140 mg Documented By: BS Vital Signs Vital signs: Vital Signs - 8 hr 04/08/24 13:27 04/08/24 14:23 04/08/24 14:30 Temperature 98.9 F Pulse Rate 87 93 H 94 H Respiratory Rate 16 20 Blood Pressure 150/91 H Pulse Oximetry 97 97 93 Oxygen Delivery Method Room Air 04/08/24 14:40 04/08/24 14:40 04/08/24 14:45 Temperature Pulse Rate 89 86 Respiratory Rate 12 15 Blood Pressure 178/103 H Pulse Oximetry 98 95 Oxygen Delivery Method 04/08/24 14:45 04/08/24 14:50 04/08/24 14:50 Temperature Pulse Rate 87 Respiratory Rate 15 Blood Pressure 148/89 H 140/84 Pulse Oximetry 95 Oxygen Delivery Method 04/08/24 14:56 04/08/24 14:56 04/08/24 15:00 Temperature Pulse Rate 87 88 Respiratory Rate 24 14 Blood Pressure 180/110 H Pulse Oximetry 98 94 Oxygen Delivery Method 04/08/24 15:00 04/08/24 15:05 04/08/24 15:05 Temperature Pulse Rate 81 Respiratory Rate 19 Blood Pressure 148/86 H 172/92 H Pulse Oximetry 96 Oxygen Delivery Method 04/08/24 15:10 04/08/24 15:10 04/08/24 15:15 Temperature Pulse Rate 86 Respiratory Rate 13 Blood Pressure 142/86 H 143/90 H Pulse Oximetry 95 Oxygen Delivery Method 04/08/24 15:15 04/08/24 15:20 04/08/24 15:20 Temperature Pulse Rate 84 87 Respiratory Rate 14 20 Blood Pressure 149/91 H Pulse Oximetry 94 94 Oxygen Delivery Method 04/08/24 15:25 04/08/24 15:25 04/08/24 15:30 Temperature Pulse Rate 91 H Respiratory Rate 15 Blood Pressure 158/96 H 152/91 H Pulse Oximetry 95 Oxygen Delivery Method 04/08/24 15:30 04/08/24 15:35 04/08/24 15:35 Temperature Pulse Rate 90 89 Respiratory Rate 15 12 Blood Pressure 155/97 H Pulse Oximetry 95 96 Oxygen Delivery Method Room Air 04/08/24 15:40 04/08/24 15:40 04/08/24 15:45 Temperature Pulse Rate 93 H 83 Respiratory Rate 15 13 Blood Pressure 160/108 H Pulse Oximetry 95 95 Oxygen Delivery Method 04/08/24 15:45 04/08/24 15:50 04/08/24 15:50 Temperature Pulse Rate 88 Respiratory Rate 12 Blood Pressure 149/105 H 149/95 H Pulse Oximetry 95 Oxygen Delivery Method 04/08/24 15:55 04/08/24 15:55 04/08/24 16:00 Temperature Pulse Rate 91 H 90 Respiratory Rate 15 10 L Blood Pressure 150/96 H Pulse Oximetry 95 96 Oxygen Delivery Method 04/08/24 16:00 04/08/24 16:05 04/08/24 16:05 Temperature Pulse Rate 82 Respiratory Rate 11 L Blood Pressure 150/96 H 152/97 H Pulse Oximetry 97 Oxygen Delivery Method 04/08/24 16:10 04/08/24 16:10 04/08/24 16:15 Temperature Pulse Rate 86 83 Respiratory Rate 14 13 Blood Pressure 152/94 H Pulse Oximetry 96 95 Oxygen Delivery Method Room Air 04/08/24 16:15 04/08/24 16:20 04/08/24 16:20 Temperature Pulse Rate 80 Respiratory Rate 12 Blood Pressure 146/92 H 159/94 H Pulse Oximetry 96 Oxygen Delivery Method 04/08/24 16:25 04/08/24 16:25 04/08/24 16:30 Temperature Pulse Rate 79 76 Respiratory Rate 15 18 Blood Pressure 156/90 H Pulse Oximetry 98 97 Oxygen Delivery Method 04/08/24 16:30 04/08/24 16:34 04/08/24 16:34 Temperature Pulse Rate 82 Respiratory Rate 26 H Blood Pressure 172/98 H 150/85 H Pulse Oximetry 93 Oxygen Delivery Method 04/08/24 16:35 04/08/24 16:35 04/08/24 16:40 Temperature Pulse Rate 83 83 Respiratory Rate 13 9 L Blood Pressure 153/85 H Pulse Oximetry 94 94 Oxygen Delivery Method 04/08/24 16:40 04/08/24 16:45 04/08/24 16:45 Temperature Pulse Rate 78 Respiratory Rate 10 L Blood Pressure 153/92 H 156/94 H Pulse Oximetry 97 Oxygen Delivery Method 04/08/24 16:50 04/08/24 16:50 04/08/24 16:55 Temperature Pulse Rate 87 75 Respiratory Rate 15 22 Blood Pressure 160/100 H Pulse Oximetry 96 98 Oxygen Delivery Method Room Air 04/08/24 16:55 04/08/24 17:00 04/08/24 17:00 Temperature Pulse Rate 77 Respiratory Rate 16 Blood Pressure 171/102 H 178/102 H Pulse Oximetry 97 Oxygen Delivery Method Room Air 04/08/24 17:05 04/08/24 17:05 04/08/24 17:11 Temperature Pulse Rate 87 81 Respiratory Rate 16 12 Blood Pressure 172/101 H Pulse Oximetry 96 97 Oxygen Delivery Method Room Air Room Air 04/08/24 17:11 Temperature Pulse Rate Respiratory Rate Blood Pressure 166/88 H Pulse Oximetry Oxygen Delivery Method MDM - Extremity Injury (Upper) Imaging Data Extremity x-ray #1: Radiologist's Impression: [address] [address] XRay Report Signed Patient: Gadiel Quiñonez MR#: [id number] : 1965 Acct:[id number] Age/Sex: 59 / M Date of Service: 04/08/24 Loc: ED Accession Number: [id number] Procedure: XR humerus LT 2V Ordering Provider: Krit Gonzales MD PROCEDURE: XR HUMERUS LT 2V INDICATIONS: arm pain shoulder pain, viz rest of mid-distal humerus TECHNIQUE: 2 views of the humerus were acquired. COMPARISON: [facility], [facility], XR SHOULDER LT MIN 2V, 04/08/2024, 13:54. [facility], , XR HUMERUS LT 2V, 07/24/2023, 13:16. FINDINGS: Bones: No fractures found in this patient with an anterior subcoracoid left shoulder dislocation currently and in the past. No suspicious bony lesions. Soft tissues: No suspicious soft tissue calcifications. IMPRESSION: Previously documented anterior subcoracoid shoulder dislocation today and in the past, no fracture associated through the humerus. Dictated by: Hubert Crespo M.D. on 04/08/2024 at 15:46 Approved by: Hubert Crespo M.D. on 04/08/2024 at 15:48 Extremity x-ray #2: Radiologist's Impression: [address] [address] XRay Report Signed Patient: Gadiel Quiñonez MR#: [id number] : 1965 Acct:[id number] Age/Sex: 59 / M Date of Service: 04/08/24 Loc: ED Accession Number: [id number] Procedure: XR shoulder LT min 2V Ordering Provider: Kirt Gonzales MD PROCEDURE: XR SHOULDER LT MIN 2V INDICATIONS: r/o L shoulder dislocation TECHNIQUE: 3 views of the shoulder were acquired. COMPARISON: [facility], CR, XR SHOULDER LT MIN 2V, 07/28/2023, 17:45. FINDINGS: Bones: Humeral head is inferiorly located compared to glenohumeral joint space. No distinct fractures identified. Soft tissues: No suspicious soft tissue calcifications. IMPRESSION: Anterior dislocation without visualized fracture. Dictated by: Alexa Palumbo M.D. on 04/08/2024 at 14:14 Approved by: Alexa Palumbo M.D. on 04/08/2024 at 14:14 [facility] Narrative Medical decision making narrative: Suspected left anterior closed shoulder dislocation, contusion like injury described last night, might have to boost spontaneously and recurred by history, screening x-ray requested X-ray shows left anterior shoulder dislocation. Distal humerus without obvious fracture. See radiology reports. Procedural sedation with IV propofol, performed left shoulder Man maneuver external rotation adduction internal rotation, no success 1st attempt, additional sedation, successful 2nd attempt. No airway interventions required, tolerated procedure well, placed in sling postprocedure. See separate note for procedural sedation and reduction procedure. X-ray postprocedure anatomic shoulder, old appearing chronic Hill-Sachs fracture noted, old appearing left rib fracture noted, patient was informed of these other incidental old findings, and informed of successful imaging rejection from today. Follow up with Orthopedic surgery advised, contact information provided, to call their office in follow up early next week, stay in sling until that time. Home pack analgesics dispensed VerbalizeIt. Otherwise advised use of [id number] pain medication Motrin and/or Tylenol. Improved, stable, follow up with Orthopedic surgery as above. Return precautions discussed. Discharge Plan Departure Patient Disposition: Home Clinical Impression: Dislocation of left shoulder joint, Separation of left acromioclavicular joint, Left rib fracture Activity Restrictions/Additional Instructions: History of previous shoulder dislocations, running into the door last night head left shoulder pain since that time, on x-ray had dislocation anteriorly of the left shoulder, unfortunately this was out for quite a number of hours, however with IV sedation it did go back into place, there was no obvious fractures before or after the procedure. On the post reduction x-rays there was old appearing Hill-Sachs fracture of the glenoid portion of the scapula bone, not likely from tonight's injury or the reduction procedure. There was also incidentally noted in old appearing left-sided rib fracture. And there was some widening of the acromioclavicular joint, unclear if this is new or old. Placed in the sling. Follow up with local orthopedic surgery regarding your dislocation, as you might need physical therapy. Take [id number] Tylenol and or Motrin as needed for pain control. Follow up with Orthopedic surgery. Return to this/nearest emergency department for any change worsening symptoms or any concerns prior Prescriptions: No Action cyanocobalamin (vitamin B-12) [Vitamin B-12] 1,000 mcg Tablet 1,000 mcg PO DAILY thiamine HCl (vitamin B1) 100 mg Tablet 100 mg PO DAILY folic acid 400 mcg Tablet 0.4 mg PO DAILY acetaminophen [Tylenol Extra Strength] 500 mg Tablet 1,000 mg PO Q6H PRN (Reason: pain/ fever) lorazepam 1 mg Tablet 1 mg PO QID cholecalciferol (vitamin D3) 25 mcg (1,000 unit) Capsule 25 mcg PO DAILY Adult Multivitamin Gummies 200 mcg Tablet,Chewable 200 mcg PO DAILY magnesium oxide 400 mg magnesium Tablet 400 mg PO BID gabapentin 200 mg capsule 400 mg PO TID hydromorphone 4 mg tablet 4 mg PO QID PRN (Reason: Pain (Scale Score 7-10)) cyclobenzaprine 10 mg tablet 10 mg PO BID Qty: 20 0RF hydrocodone-acetaminophen 5-325 mg tablet 1 tab PO Q4-6H PRN (Reason: pain) Qty: 10 0RF oxycodone-acetaminophen 5-325 mg tablet 1 tab PO Q6H PRN (Reason: pain) Qty: 14 0RF Referrals: Sindy Ramos PA-C [Primary Care Provider] - Luca Chan MD [Physician] - Stand Alone Forms: Patient Portal/API
--- NOTE | 2024-04-08 14:57 | DI.RAD.S_ITS ---
PROCEDURE: XR HUMERUS LT 2V INDICATIONS: arm pain shoulder pain, viz rest of mid-distal humerus TECHNIQUE: 2 views of the humerus were acquired. COMPARISON: [facility], [facility], XR SHOULDER LT MIN 2V, 04/08/2024, 13:54. [facility], [facility], XR HUMERUS LT 2V, 07/24/2023, 13:16. FINDINGS: Bones: No fractures found in this patient with an anterior subcoracoid left shoulder dislocation currently and in the past. No suspicious bony lesions. Soft tissues: No suspicious soft tissue calcifications. IMPRESSION: Previously documented anterior subcoracoid shoulder dislocation today and in the past, no fracture associated through the humerus. Dictated by: Hubert Crespo M.D. on 04/08/2024 at 15:46 Approved by: Hubert Crespo M.D. on 04/08/2024 at 15:48
[2024-04-08] MEDS: propofoL 200 MG/20 ML VIAL IV (16:38)
[2024-04-08] MEDS: HYDROCODONE/ACET 5/325 PREPACK 1 BOTTLE MISC (18:07)
== END 2024-04-08 18:19 | disposition home or self-care (01) ==
PROVIDERS: Emergency Provider Emergency Medicine; PCP Physician Assistant
DX: S43.015A Anterior dislocation of left humerus, initial encounter (principal); S43.102A Unspecified dislocation of left acromioclavicular joint, initial encounter; S22.32XA Fracture of one rib, left side, initial encounter for closed fracture; X58.XXXA Exposure to other specified factors, initial encounter
CPT/HCPCS: 23650; 73030; 73060; 96374; 99152; 99153; 99284; 99291; J1171; J2704

== ENCOUNTER 2024-04-10 02:43 | Observation (INO) | payer OTHER, SELFPAY ==
[2023-04-26 01:30] VITALS: BMI 19.8
[2024-04-10] VITALS (30 sets, daily range): BP systolic 118–163; BP diastolic 80–103; PULSE 75–871; RESP 9–33; TEMP 36.2–37.2; O2SAT 91–98; BMI 19.5
--- NOTE | 2024-04-10 | DI.RAD.S_ITS ---
PROCEDURE: XR SHOULDER LT MIN 2V INDICATIONS: LT SHOULDER REDUCTION TECHNIQUE: 2 views of the shoulder were acquired. COMPARISON: [facility], CR, XR SHOULDER LT MIN 2V, 04/10/2024, 4:11. [facility], CR, XR SHOULDER LT MIN 2V, 04/10/2024, 3:28. FINDINGS: Bones: Relocation of the left shoulder glenohumeral joint. Suspect Hill-Sachs fracture. No suspicious bony lesions. Visualized ribs appear intact. Soft tissues: No suspicious soft tissue calcifications. IMPRESSION: Relocation of the left shoulder glenohumeral joint. Suspect Hill-Sachs fracture. Dictated by: Shoaib Helm M.D. on 04/10/2024 at 22:37 Approved by: Shoaib Helm M.D. on 04/10/2024 at 22:39
--- NOTE | 2024-04-10 02:54 | ED_ITS ---
HPI - Extremity Injury (Upper) General Chief Complaint: Extremity Injury, Upper Stated Complaint: L shoulder dislocation Time Seen by Provider: 04/10/24 02:54 History of Present Illness HPI narrative: Patient is a 59-year-old male with history of recurrent left shoulder dislocations followed at [facility]. He has a high-grade partial- thickness supra spinatus tear. He was previously unable to attend physical therapy, he was last seen at [facility] on March 24. He has been to our emergency department 4 times this year starting in June for left shoulder dislocation. Twice in June 29 March 22 and once April 08. Tonight he year old in bed dislocated this happens to him regularly. 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 He is ambidextrous but uses his left arm a lot due to his chronic right shoulder issues Related Data Home Medications Medication Instructions Recorded Confirmed acetaminophen 500 mg tablet 1,000 mg PO Q6H PRN pain/ fever 02/19/20 04/10/24 (Tylenol Extra Strength) cholecalciferol (vitamin D3) 25 25 mcg PO DAILY 02/19/20 04/10/24 mcg (1,000 unit) capsule cyanocobalamin (vitamin B-12) 1,000 mcg PO DAILY 02/19/20 04/10/24 1,000 mcg tablet (Vitamin B-12) folic acid 400 mcg tablet 0.4 mg PO DAILY 02/19/20 04/10/24 lorazepam 1 mg tablet 1 mg PO TID 02/19/20 04/10/24 magnesium oxide 400 mg PO BID 02/19/20 04/10/24 multivitamin with minerals-folic 200 mcg PO DAILY 02/19/20 04/10/24 acid 200 mcg chewable tablet (Adult Multivitamin Gummies) thiamine HCl (vitamin B1) 100 mg 100 mg PO DAILY 02/19/20 04/10/24 tablet gabapentin 600 mg PO TID 04/26/23 04/10/24 [id number] 1 cap PO 3XD 04/10/24 04/10/24 6,000-19,000-30,000 unit capsule,delayed rel (Creon) Previous Rx's Medication Instructions Recorded cyclobenzaprine 10 mg tablet 10 mg PO BID #20 tabs 07/28/23 Allergies Allergy/AdvReac Type Severity Reaction Status Date / Time lisinopril Allergy Severe Swollen Verified 03/22/24 09:59 throat, lips and face Patient History Medical History (Updated 04/10/24 @ 05:32 by Sandee Crain DO) Claustrophobia Pancreatitis GERD (gastroesophageal reflux disease) Hypertension Surgical History Tracheostomy status History of hip surgery Social History household members: family Smoking Status: Former smoker alcohol intake: former Smoking Status: Former smoker alcohol intake frequency: holidays/special occasions only Alcohol type: hard liquor Substance Use Type: marijuana Exam Initial Vital Signs Initial Vital Signs: Vital Signs Temperature 99 F 04/10/24 02:45 Pulse Rate 108 H 04/10/24 02:45 Respiratory Rate 18 04/10/24 02:45 Blood Pressure 137/101 H 04/10/24 02:45 Pulse Oximetry 95 04/10/24 02:45 Oxygen Delivery Method Room Air 04/10/24 02:45 GENERAL: Well-appearing, well-nourished and in no acute distress. CARDIOVASCULAR: peripheral pulses in tact, cap refill <2 sec RESPIRATORY: No respiratory distress, speaks in full sentences without difficulty [ABDOMEN: Soft, nontender, no guarding or rebound] EXTREMITIES: Normal range of motion, no clubbing or edema. Neurovascularly intact NEUROLOGICAL: Cranial nerves II through XII grossly intact. Normal gait and speech. SKIN: Warm, dry, no petechiae, no rashes or lesions. Procedures Procedural Sedation Consent signed: Yes Time out performed: Yes Indication: fracture/dislocation reduction ASA Class: II Mallampati Airway Classification: Class II Preparation: gambling monitor applied, pulse oximeter, capnometry used, s upplemental O2 applied, suction/airway equipment at bedside and IV secured IV Propofol dose (mg): 100 Intraservice time/total sedation time (min): 15 ED Sedation Level: Moderate (Concious) Patient Tolerated Procedure: Well Complications: hypoxia Interventions: Airway repositioned and Oxygen applied Additional Comments: Procedure sedation 2. Procedure: 2nd attempt at left anterior shoulder dislocation Indication(s): Shoulder dislocation Past History: Prior complication to general anesthesia: [] Prior complication to procedural sedation: [] Last food/drink ingestion: [] Allergies: None ASA Classification:E E. Emergent conditions P1:Normal healthy patient P2: Mild systemic disease P3: Severe systemic disease P4: Severe systemic disease that is a constant threat to life P5: Moribund patient who is not expected to survive w/o operation Physical Exam: Airway: [] Mallampati Classification: 2 1. Soft Palate, anterior/posterior tonsillar pillars and uvula visible 2. Tonsillar pillars and uvula hidden by base of tongue 3. Only soft palate visible 4. Soft palate not visible Preparation: Plan was explained to the patient, including risks and benefits. Patient is competent to make decisions regarding this elective procedure. Consent signed. quality assurance monitor chassis in place during procedure Oximetry in place during procedure. Capnometry in place during procedure. IV access present and patent. Suction available at bedside if needed. Sedation medication used: Fall 120mg Complications: none Reversal: none Course Orders Ordered: ED Orders 04/10/24 02:56 XR shoulder LT min 2V Stat 04/10/24 04:05 XR shoulder LT min 2V Stat Acetaminophen (Acetaminophen 325 Mg Tablet) 650 mg PO Q6HR PRN PRN Reason: Fever/Mild Pain (1-3) Hydromorphone HCl (Hydromorphone 0.5 Mg Inj) 0.5 mg IV Q2H PRN PRN Reason: Pain, Severe (7-10) Last Admin: 04/10/24 05:39 Dose: 0.5 mg Documented By: MELODIE Influenza Virus Vaccine (Influenza Vaccine Qiv 0.5 Ml Syringe) 0.5 ml IM .ONCE ONE Stop: 04/10/24 09:01 Ondansetron HCl (Ondansetron 4 Mg/2 Ml Inj) 4 mg IV Q4HR PRN PRN Reason: Nausea And Vomiting Discontinued Medications Hydromorphone HCl (Hydromorphone 1 Mg Inj) 1 mg IV NOW ONE Stop: 04/10/24 04:18 Last Admin: 04/10/24 04:20 Dose: 1 mg Documented By: MELODIE Ketorolac Tromethamine (Ketorolac 30 Mg/Ml Vial) 15 mg IV NOW ONE Stop: 04/10/24 05:33 Last Admin: 04/10/24 05:41 Dose: 15 mg Documented By: MELODIE Propofol (Propofol 200 Mg/20 Ml Vial) 100 mg IV NOW ONE Stop: 04/10/24 03:07 Last Admin: 04/10/24 03:23 Dose: 100 mg Documented By: MELODIE Propofol (Propofol 200 Mg/20 Ml Vial) 80 mg 1 mg/kg (80 mg) IV NOW ONE Stop: 04/10/24 03:53 Last Admin: 04/10/24 03:57 Dose: 80 mg Documented By: MELODIE Propofol (Propofol 200 Mg/20 Ml Vial) 40 mg 0.5 mg/kg (40 mg) IV NOW ONE Stop: 04/10/24 04:14 Last Admin: 04/10/24 04:01 Dose: 40 mg Documented By: MELODIE Vital Signs Vital signs: Vital Signs - 8 hr 04/10/24 02:45 04/10/24 02:48 04/10/24 03:00 Temperature 99 F Pulse Rate 108 H 106 H 108 H Respiratory Rate 18 18 Blood Pressure 137/101 H Pulse Oximetry 95 94 Oxygen Delivery Method Room Air Oxygen Flow Rate 04/10/24 03:00 04/10/24 03:21 04/10/24 03:21 Temperature Pulse Rate 103 H 94 H Respiratory Rate 18 Blood Pressure 163/103 H Pulse Oximetry 91 96 Oxygen Delivery Method Oxygen Flow Rate 04/10/24 03:25 04/10/24 03:25 04/10/24 03:30 Temperature Pulse Rate 97 H Respiratory Rate 33 H Blood Pressure 143/95 H 130/88 Pulse Oximetry 91 Oxygen Delivery Method Oxygen Flow Rate 04/10/24 03:30 04/10/24 03:35 04/10/24 03:35 Temperature Pulse Rate 94 H 88 Respiratory Rate 14 16 Blood Pressure 125/84 Pulse Oximetry 95 95 Oxygen Delivery Method Oxygen Flow Rate 04/10/24 03:40 04/10/24 03:40 04/10/24 03:45 Temperature Pulse Rate 89 Respiratory Rate Blood Pressure 136/90 144/95 H Pulse Oximetry 95 Oxygen Delivery Method Oxygen Flow Rate 04/10/24 03:45 04/10/24 03:50 04/10/24 03:50 Temperature Pulse Rate 86 89 Respiratory Rate Blood Pressure 143/96 H Pulse Oximetry 95 95 Oxygen Delivery Method Oxygen Flow Rate 04/10/24 03:55 04/10/24 03:55 04/10/24 04:00 Temperature Pulse Rate 89 Respiratory Rate Blood Pressure 147/93 H 132/83 Pulse Oximetry 97 Oxygen Delivery Method Oxygen Flow Rate 04/10/24 04:00 04/10/24 04:05 04/10/24 04:05 Temperature Pulse Rate 97 H 96 H Respiratory Rate 25 H 17 Blood Pressure 136/87 Pulse Oximetry 92 96 Oxygen Delivery Method Nasal Cannula Oxygen Flow Rate 2 04/10/24 04:10 04/10/24 04:10 04/10/24 04:12 Temperature Pulse Rate 100 H 100 H Respiratory Rate 16 17 Blood Pressure 131/85 Pulse Oximetry 95 Oxygen Delivery Method Oxygen Flow Rate 04/10/24 04:15 04/10/24 04:15 04/10/24 04:20 Temperature Pulse Rate 96 H Respiratory Rate 17 Blood Pressure 136/88 141/86 H Pulse Oximetry 96 Oxygen Delivery Method Oxygen Flow Rate 04/10/24 04:20 04/10/24 04:25 04/10/24 04:25 Temperature Pulse Rate 85 86 Respiratory Rate 15 16 Blood Pressure 150/90 H Pulse Oximetry 96 94 Oxygen Delivery Method Oxygen Flow Rate 04/10/24 04:30 04/10/24 04:30 04/10/24 04:35 Temperature Pulse Rate 89 93 H Respiratory Rate 10 L 9 L Blood Pressure 141/91 H Pulse Oximetry 94 94 Oxygen Delivery Method Oxygen Flow Rate 04/10/24 04:35 04/10/24 04:40 04/10/24 04:40 Temperature Pulse Rate 95 H Respiratory Rate 13 Blood Pressure 144/95 H 143/96 H Pulse Oximetry 95 Oxygen Delivery Method Oxygen Flow Rate MDM - Extremity Injury (Upper) Imaging Data Extremity x-ray #1: Radiologist's Impression: Anterior dislocation of left shoulder Extremity x-ray #2: Radiologist's Impression: Persistent dislocation MDM Narrative Medical decision making narrative: Patient 59-year-old male presenting today with recurrent left shoulder dislocation. It is dislocated many times. The last attempt 2 days ago required 2 attempts but was successful with internal rotation. I have attempted twice with 2 separate procedure sedation multiple ways with scapula manipulation internal external rotation inferior superior movement, unable to reduce Patient remains neurovascularly intact but in pain 0530 Dr. Chan return phone call states he will put patient in observation for OR reduction in am Discharge Plan Departure Patient Disposition: Admitted as Observation Clinical Impression: Anterior dislocation of left shoulder Admit Date/Time: 04/10/24 05:19 Admit Provider: Luca Chan
--- NOTE | 2024-04-10 02:56 | DI.RAD.S_ITS ---
PROCEDURE: XR SHOULDER LT MIN 2V INDICATIONS: dislocation TECHNIQUE: Two views of the shoulder were acquired. COMPARISON: , CR, XR SHOULDER LT MIN 2V, 04/08/2024, 16:41. FINDINGS: Bones: Anterior and inferomedial dislocation of the humeral head. There is of lucent impaction deformity at the posterolateral humeral head, seen previously. Healed left rib fractures are noted. No visible acute left rib fractures. Soft tissues: No suspicious soft tissue calcifications. IMPRESSION: Anterior glenohumeral joint dislocation. Chronic Hill-Sachs deformity. Final interpretation is concordant with preliminary report. Dictated by: Yana Shah M.D. on 04/10/2024 at 8:33 Approved by: Yana Shah M.D. on 04/10/2024 at 8:34
[2024-04-10] MEDS: propofoL 200 MG/20 ML VIAL 100 MG IV (03:23)
[2024-04-10] MEDS: propofoL 200 MG/20 ML VIAL 80 MG IV (03:57)
[2024-04-10] MEDS: propofoL 200 MG/20 ML VIAL 40 MG IV (04:01)
--- NOTE | 2024-04-10 04:05 | DI.RAD.S_ITS ---
PROCEDURE: XR SHOULDER LT MIN 2V INDICATIONS: post reduction-failed attempt TECHNIQUE: Two views of the shoulder were acquired. COMPARISON: [facility], CR, XR SHOULDER LT MIN 2V, 04/10/2024, 3:28. FINDINGS: Bones: Persistent anterior glenohumeral joint dislocation. Better visualized widening of the AC joint without elevation of the distal clavicle. Remote left rib fractures. Soft tissues: No suspicious soft tissue calcifications. IMPRESSION: Persistent anterior glenohumeral dislocation post reduction attempt. Dictated by: Yana Shah M.D. on 04/10/2024 at 8:35 Approved by: Yana Shah M.D. on 04/10/2024 at 8:36
[2024-04-10] MEDS: HYDROMORPHONE 1 MG INJ IV (04:20)
[2024-04-10] MEDS: HYDROMORPHONE 0.5 MG INJ IV ×4 (05:39→13:14)
[2024-04-10] MEDS: KETOROLAC 30 MG/ML VIAL 15 MG IV (05:41)
--- NOTE | 2024-04-10 08:42 | PM.HP.1 ---
History of Present Illness History of Present Illness Date Patient Seen: 04/10/24 Time Patient Seen: 08:42 Chief complaint: L shoulder dislocation Narrative: 59-year-old gentleman with a history of multiple dislocations to shoulder. Was recently seen emergency room 2 days ago able to reduce his shoulder. Had recurrent dislocation yesterday which was unable to be reduced in the emergency this morning. Patient states that he had a traumatic injury to the shoulder about a year ago where he fell which resulted in a dislocation as well as a fracture to the arm. Was treated down at [facility]. And ever since then he has had recurrent dislocations. [facility] Medical History Claustrophobia Pancreatitis GERD (gastroesophageal reflux disease) Hypertension Surgical History Tracheostomy status History of hip surgery Social History household members: family Smoking Status: Former smoker alcohol intake: former Meds Home Medications and Allergies Home Medications Medication Instructions Recorded Confirmed Type acetaminophen 500 mg tablet 1,000 mg PO Q6H PRN pain/ fever 02/19/20 04/10/24 History (Tylenol Extra Strength) cholecalciferol (vitamin D3) 25 25 mcg PO DAILY 02/19/20 04/10/24 History mcg (1,000 unit) capsule cyanocobalamin (vitamin B-12) 1,000 mcg PO DAILY 02/19/20 04/10/24 History 1,000 mcg tablet (Vitamin B-12) folic acid 400 mcg tablet 0.4 mg PO DAILY 02/19/20 04/10/24 History lorazepam 1 mg tablet 1 mg PO TID 02/19/20 04/10/24 History magnesium oxide 400 mg PO BID 02/19/20 04/10/24 History multivitamin with minerals-folic 200 mcg PO DAILY 02/19/20 04/10/24 History acid 200 mcg chewable tablet (Adult Multivitamin Gummies) thiamine HCl (vitamin B1) 100 mg 100 mg PO DAILY 02/19/20 04/10/24 History tablet gabapentin 600 mg PO TID 04/26/23 04/10/24 History [id number] 1 cap PO 3XD 04/10/24 04/10/24 History 6,000-19,000-30,000 unit capsule,delayed rel (Creon) pantoprazole 40 mg tablet,delayed 40 mg PO DAILY 04/10/24 04/10/24 History release (Protonix) Allergies Allergy/AdvReac Type Severity Reaction Status Date / Time lisinopril Allergy Severe Swollen Verified 03/22/24 09:59 throat, lips and face Exam Vital Signs (past 8 hours): - 04/10/24 02:45 04/10/24 02:48 04/10/24 03:00 Temperature 99 F Pulse Rate 108 H 106 H 108 H Respiratory Rate 18 18 Blood Pressure 137/101 H Pulse Oximetry 95 94 Oxygen Delivery Method Room Air Oxygen Flow Rate 04/10/24 03:00 04/10/24 03:21 04/10/24 03:21 Temperature Pulse Rate 103 H 94 H Respiratory Rate 18 Blood Pressure 163/103 H Pulse Oximetry 91 96 Oxygen Delivery Method Oxygen Flow Rate 04/10/24 03:25 04/10/24 03:25 04/10/24 03:30 Temperature Pulse Rate 97 H Respiratory Rate 33 H Blood Pressure 143/95 H 130/88 Pulse Oximetry 91 Oxygen Delivery Method Oxygen Flow Rate 04/10/24 03:30 04/10/24 03:35 04/10/24 03:35 Temperature Pulse Rate 94 H 88 Respiratory Rate 14 16 Blood Pressure 125/84 Pulse Oximetry 95 95 Oxygen Delivery Method Oxygen Flow Rate 04/10/24 03:40 04/10/24 03:40 04/10/24 03:45 Temperature Pulse Rate 89 Respiratory Rate Blood Pressure 136/90 144/95 H Pulse Oximetry 95 Oxygen Delivery Method Oxygen Flow Rate 04/10/24 03:45 04/10/24 03:50 04/10/24 03:50 Temperature Pulse Rate 86 89 Respiratory Rate Blood Pressure 143/96 H Pulse Oximetry 95 95 Oxygen Delivery Method Oxygen Flow Rate 04/10/24 03:55 04/10/24 03:55 04/10/24 04:00 Temperature Pulse Rate 89 Respiratory Rate Blood Pressure 147/93 H 132/83 Pulse Oximetry 97 Oxygen Delivery Method Oxygen Flow Rate 04/10/24 04:00 04/10/24 04:05 04/10/24 04:05 Temperature Pulse Rate 97 H 96 H Respiratory Rate 25 H 17 Blood Pressure 136/87 Pulse Oximetry 92 96 Oxygen Delivery Method Nasal Cannula Oxygen Flow Rate 2 04/10/24 04:10 04/10/24 04:10 04/10/24 04:12 Temperature Pulse Rate 100 H 100 H Respiratory Rate 16 17 Blood Pressure 131/85 Pulse Oximetry 95 Oxygen Delivery Method Oxygen Flow Rate 04/10/24 04:15 04/10/24 04:15 04/10/24 04:20 Temperature Pulse Rate 96 H Respiratory Rate 17 Blood Pressure 136/88 141/86 H Pulse Oximetry 96 Oxygen Delivery Method Oxygen Flow Rate 04/10/24 04:20 04/10/24 04:25 04/10/24 04:25 Temperature Pulse Rate 85 86 Respiratory Rate 15 16 Blood Pressure 150/90 H Pulse Oximetry 96 94 Oxygen Delivery Method Oxygen Flow Rate 04/10/24 04:30 04/10/24 04:30 04/10/24 04:35 Temperature Pulse Rate 89 93 H Respiratory Rate 10 L 9 L Blood Pressure 141/91 H Pulse Oximetry 94 94 Oxygen Delivery Method Oxygen Flow Rate 04/10/24 04:35 04/10/24 04:40 04/10/24 04:40 Temperature Pulse Rate 95 H Respiratory Rate 13 Blood Pressure 144/95 H 143/96 H Pulse Oximetry 95 Oxygen Delivery Method Oxygen Flow Rate 04/10/24 06:27 Temperature Pulse Rate Respiratory Rate Blood Pressure Pulse Oximetry Oxygen Delivery Method Room Air Oxygen Flow Rate Oxygen Delivery Method Room Air Oxygen Flow Rate 2 Narrative Exam Narrative: Patient with signs of a anterior dislocated left shoulder. He is able to flex and extend the elbow. Ulnar, median, and radial nerve are intact to both motor and sensory function. Brisk cap refill and a 2+ radial pulse. Able to make tight fist. Skin is intact. No sign of any open wounds. Compartments are soft. Assessment & Plan Assessment & Plan narrative: Patient with an anterior shoulder dislocation which they were unable to reduce in the emergency room. Due to this fact, patient is consented for a closed reduction of the left shoulder in the operating room. Patient fully understands the risks and limitations associated with the procedure. The risk, benefits, alternatives, possible complications, operative course, and postop outcomes were discussed. Complications including but not limiting to bleeding, infection, fracture, nerve injury, continued pain postoperatively or instability postoperatively were discussed in detail. Medical complications including but not limited to deep venous thrombosis event, anesthesia complications with excessive bleeding, vascular events or cardiac events and other possible complications were discussed in detail. Need for postoperative rehabilitation and anticipated hospital stay and clinical course were discussed in detail. Patient acknowledges understanding and elects to proceed with surgery. Time-Based Coding :: [TOTAL MINUTES] spent with patient and on the chart (including review of chart, obtaining history, exam, reviewing outside data, placing orders, documenting exam and treatment plan, and counseling patient) on [DATE].
--- NOTE | 2024-04-10 10:30 | SUR.OPER ---
Supine on padded OR bed, head on pillow,non-operative arm secured on padded arm boards at <90 degrees abduction, legs uncrossed, safety belt at thigh, tape over blanket over lower legs.
--- NOTE | 2024-04-10 10:50 | PM.OP.1 ---
Operative Date/Time/Diagnoses Date of procedure: 04/10/24 Time of procedure: 10:30 Pre-op diagnosis: Left anterior shoulder dislocation Post-op diagnosis: same Procedure & Clinicians Procedure: Closed reduction of left anterior shoulder dislocation Same procedure as scheduled: Yes Indications: Left anterior shoulder dislocation Surgeon: Luca Chan Click Yes if Unassisted: Yes Anesthesia Type: MAC +/- Operative Notes Findings: Anterior dislocation of the left shoulder Closure Type: not applicable Procedure in detail: Patient was met in the holding area where his operative site was signed and witnessed by the OR staff. The surgery was once again discussed with the patient and he remain questions or concerns was answered to his full satisfaction. Patient was taken to the operating theater placed on the operating table in a supine position. Once we had adequate anesthesia a reduction maneuver was performed allowing us to reduce the left anterior shoulder dislocation. C-arm was brought in and AP and axillary view was performed showing concentric reduction of the glenohumeral joint no sign fractures or recurrent instability. Sling was placed and patient was taken to the PACU in stable condition. Complications: none Post-operative Condition: stable Disposition: other (Patient can be discharged home) Plan for aftercare: Sling for the next 6 weeks. Patient will eventually need an MRI left shoulder.
--- NOTE | 2024-04-10 10:57 | CM.DANOTE ---
B DCP assessment note pt is a 59yo M here following left should dislocation, PMH of recurrent shoulder dislocations, and is here to get it put back in place under anesthesia after unsuccessfully being about to place it in the ED. PCP Sindy Noriega [employer] CAGE SUPERVISOR reviewed EMR. Per chart, has frequent should dislocations. Per RN Gabriela who met with pt in room to deliver [place], pt lives with mother in [place], drives, and overall is mod indep. interested in meals on wheels. uses grabber thing. no hx of HH. CAGE SUPERVISOR attempted to drop off meals on wheels information. Pt already in surgery. left senior resources booklet on table with the meals on wheels number sticky noted. P: home when medically stable, likely will need close OP f/u for intermediate teacher shoulder plan. CM team will continue to follow as needed BEULAH Gastelum Discharge Planning/Care Management CM Discharge Assessment Start: 04/10/24 10:55 Freq: Status: Active Protocol: Document 04/10/24 10:55 (Rec: 04/10/24 10:57 [id number]) Discharge Planning Assessment Assigned Shoe Patternmaker BEULAH Waddell DPOA/Assigned Designee Name mother Hauser Contact Information [phone] Advance Directives? No History Provided By Patient,Medical Record Prior Living Arrangements House Household Members family Type of transporation used prior to Drives own vehicle admit Comment Has a cane available, has not been needing to use. Discharge Plan Home Referrals Initiated None needed Review Status In Process Please Provide Date Initial DC 04/10/24 Assessment Was Performed Next Review Type Continued Stay Review
[2024-04-10] MEDS: INFLUENZA VACCINE QIV 0.5 ML SYRINGE IM (13:15)
--- NOTE | 2024-04-10 13:51 | PC.NURSE ---
Day shift: Discharge instructions gone over with patient. Patient stated understanding, all questions answered. PIV removed prior to d/c. All belongings with patient, including hard script for pain medication. This RN escorted patient to emergency exit where taxi will pick him up to take him to pharmacy, then home.
== END 2024-04-10 13:45 | disposition home or self-care (01) ==
LOC: ED 03:16 → AC 05:19
PROVIDERS: Admitting Provider Orthopaedic Surgery; Emergency Provider Emergency Medicine; PCP Physician Assistant; Visit Provider Orthopaedic Surgery
PROC: (CPT 23655; principal; 2024-04-10 10:30)
DX: M24.412 Recurrent dislocation, left shoulder (principal); Z23 Encounter for immunization
CPT/HCPCS: 23655; 23650; 73030; 76000; 90471; 90656; 96374; 96375; 96376; 99152; 99285; G0378; J1171; J1885; J2250; J2405; J2704; Q2038

== ENCOUNTER 2024-04-21 08:21 | Observation (INO) | payer OTHER, MEDICAID, SELFPAY ==
[2024-04-10 06:18] VITALS: BMI 19.5
[2024-04-21] VITALS (75 sets, daily range): BP systolic 121–179; BP diastolic 72–100; PULSE 61–93; RESP 0–29; TEMP 36.2–37.2; O2SAT 92–100; BMI 20.5
--- NOTE | 2024-04-21 | DI.RAD.S_ITS ---
PROCEDURE: XR SHOULDER LT 1V INDICATIONS: POST REDUCTION? TECHNIQUE: Single frontal view of the shoulder were acquired. COMPARISON: [facility], CR, XR SHOULDER LT MIN 2V, 04/21/2024, 8:52. [facility], CR, XR SHOULDER LT MIN 2V, 04/10/2024, 10:46. FINDINGS: Bones: Persistent anterior subcoracoid shoulder dislocation. IMPRESSION: Persistent dislocation with reference to plain film imaging from earlier today. Dictated by: Hubert Crespo M.D. on 04/21/2024 at 11:02 Approved by: Hubert Crespo M.D. on 04/21/2024 at 11:03
--- NOTE | 2024-04-21 | DI.RAD.S_ITS ---
PROCEDURE: XR SHOULDER LT 1V INDICATIONS: closed reduction TECHNIQUE: 1 views of the shoulder were acquired. COMPARISON: [facility], CR, XR SHOULDER LT 1V, 04/21/2024, 10:35. [facility], CR, XR SHOULDER LT MIN 2V, 04/21/2024, 8:52. FINDINGS: Bones: Interval reduction with adequate alignment. Hill-Sachs deformity the humeral head. Healed left rib fractures. Soft tissues: No suspicious soft tissue calcifications. IMPRESSION: Interval reduction with adequate alignment. Hill-Sachs deformity. Dictated by: Diogenes Ellis M.D. on 04/21/2024 at 20:10 Approved by: Diogenes Ellis M.D. on 04/21/2024 at 20:10
--- NOTE | 2024-04-21 08:13 | ED.GENADULT ---
HPI - General Adult General Chief complaint: Extremity Injury, Upper Stated complaint: L Shoulder Pain Time Seen by Provider: 04/21/24 08:22 History of Present Illness HPI narrative: 59-year-old gentleman with a history of multiple left shoulder dislocations. Most recent was April 08, seen by orthopedics on April 10 with operative reduction of the shoulder as this was unable to be reduced in the emergency department. Patient had an appointment to see you do have Orthopedics today at 9:45 a.m. in the morning. You apparently rolled over in bed and dislocated his left shoulder. Comes into the emergency room via medics in obvious pain with clinical anterior shoulder dislocation appreciated Related Data Home Medications Medication Instructions Recorded Confirmed acetaminophen 500 mg tablet 1,000 mg PO Q6H PRN pain/ fever 02/19/20 04/21/24 (Tylenol Extra Strength) cholecalciferol (vitamin D3) 25 25 mcg PO DAILY 02/19/20 04/10/24 mcg (1,000 unit) capsule cyanocobalamin (vitamin B-12) 1,000 mcg PO DAILY 02/19/20 04/10/24 1,000 mcg tablet (Vitamin B-12) folic acid 400 mcg tablet 0.4 mg PO DAILY 02/19/20 04/10/24 lorazepam 1 mg tablet 1 mg PO TID 02/19/20 04/21/24 magnesium oxide 400 mg PO BID 02/19/20 04/10/24 multivitamin with minerals-folic 200 mcg PO DAILY 02/19/20 04/10/24 acid 200 mcg chewable tablet (Adult Multivitamin Gummies) thiamine HCl (vitamin B1) 100 mg 100 mg PO DAILY 02/19/20 04/10/24 tablet gabapentin 600 mg PO TID 04/26/23 04/21/24 [id number] 1 cap PO 3XD 04/10/24 04/10/24 6,000-19,000-30,000 unit capsule,delayed rel (Creon) pantoprazole 40 mg tablet,delayed 40 mg PO DAILY 04/10/24 04/21/24 release (Protonix) potassium chloride 20 mEq 20 meq PO DAILY 04/21/24 04/21/24 tablet,extended release(part/cryst) Previous Rx's Medication Instructions Recorded oxycodone-acetaminophen 5 mg-325 2 tab PO Q4-6H PRN pain #60 tabs 04/10/24 mg tablet (Percocet) Allergies Allergy/AdvReac Type Severity Reaction Status Date / Time lisinopril Allergy Severe Swollen Verified 03/22/24 09:59 throat, lips and face Review of Systems Review of Systems Narrative: Pertinent positive and negative findings as per HPI Patient History Medical History (Updated 04/21/24 @ 18:38 by Maggie Crane MD) Anterior dislocation of left shoulder Claustrophobia Pancreatitis GERD (gastroesophageal reflux disease) Hypertension Surgical History Tracheostomy status History of hip surgery Social History household members: family Smoking Status: Never smoker alcohol intake: former Exam Narrative Exam Narrative: General: Alert in obvious distress, able to cooperate fully with exam and history Respiratory: Able to speak in full sentences, no obvious respiratory distress Skin: No obvious rashes, warm and dry Extremity: Neurologic: Grossly intact no obvious asymmetries or abnormalities Psych: appropriate insight and affect, cooperative Initial Vital Signs Initial Vital Signs: Vital Signs Temperature 98.8 F 04/21/24 08:25 Pulse Rate 72 04/21/24 08:25 Respiratory Rate 15 04/21/24 08:25 Blood Pressure 157/87 H 04/21/24 08:25 Pulse Oximetry 99 04/21/24 08:25 Oxygen Delivery Method Room Air 04/21/24 08:25 General: Alert appropriate in pain but able to cooperate with the exam Respiratory: Able to speak in full sentences, no obvious respiratory distress Skin: No obvious rashes, warm and dry Neurologic: Grossly intact no obvious asymmetries or abnormalities Psych: appropriate insight and affect, cooperative Extremity: Step-off to the left shoulder, significant pain with left arm range of motion. He is neurovascularly intact distally Procedures Orthopedic Joint Reduction left shoulder: Time of procedure: 10:39 Time Out Performed: Yes Side: right Joint Reduction Location: shoulder Analgesia: procedural sedation Shoulder Technique Used (if applicable): traction/counter-traction, scapula manipulation, external rotation, Milch and Drew Additional Comments: Failed. It did seem that we had at least 1 successful relocation and with range of motion of the shoulder it dislocated again Second attempt at reduction with 2nd procedural sedation failed as well Procedural Sedation Time of procedure: 12:11 Consent signed: Yes Time out performed: Yes Indication: fracture/dislocation reduction ASA Class: II Preparation: awake overnight monitor applied, pulse oximeter, capnometry used, supplemental O2 applied, suction/airway equipment at bedside and IV secured Additional Comments: With 1st sedation. After reviewing prior notes noting difficulty of sedation and procedure. I started with 200 mg of propofol. Patient was still talking after that dose. He was then given 15 mg of etomidate followed by 25 mg of etomidate. Breathing was not affected. You were able to get adequate relaxation and I believe we did get the shoulder relocated at least once but is soon as we put the arm back in position along his body it dislocated again. After discussion with Orthopedic surgery and extended delay in any orthopedic intervention agreed to try again. Patient was given 40 mg of etomidate and 10 mg of Versed. Was not able to get the shoulder relocated at all. There was no airway support required with the use large doses of medications Course Orders Ordered: Hydromorphone HCl (Hydromorphone 1 Mg Inj) 1 mg IV Q15MIN PRN PRN Reason: Pain, Last Admin: 04/21/24 15:09 Dose: 1 mg Documented By: FREDA Discontinued Medications Etomidate (Etomidate 2 Mg/Ml 10 Ml Vial) 15 mg IV NOW ONE Stop: 04/21/24 10:28 Last Admin: 04/21/24 10:27 Dose: 15 mg Documented By: DINO Etomidate (Etomidate 2 Mg/Ml 10 Ml Vial) 25 mg IV NOW ONE Stop: 04/21/24 10:35 Last Admin: 04/21/24 10:34 Dose: 25 mg Documented By: DINO Etomidate (Etomidate 2 Mg/Ml 10 Ml Vial) 40 mg IV NOW ONE Stop: 04/21/24 11:40 Last Admin: 04/21/24 11:55 Dose: 40 mg Documented By: BUSHRA Hydromorphone HCl (Hydromorphone 1 Mg Inj) 0.5 mg IV NOW ONE Stop: 04/21/24 09:08 Last Admin: 04/21/24 09:20 Dose: 0.5 mg Documented By: DINO Hydromorphone HCl (Hydromorphone 1 Mg Inj) 1 mg IV NOW ONE Stop: 04/21/24 09:36 Last Admin: 04/21/24 09:45 Dose: 1 mg Documented By: DINO Hydromorphone HCl (Hydromorphone 1 Mg Inj) 1 mg IV NOW ONE Stop: 04/21/24 13:48 Last Admin: 04/21/24 13:50 Dose: 1 mg Documented By: FREDA Hydromorphone HCl (Hydromorphone 0.5 Mg Inj) 1 mg IV Q15MIN PRN PRN Reason: Pain, Midazolam HCl (Midazolam 2 Mg/2 Ml Vial) 10 mg IV NOW ONE Stop: 04/21/24 12:08 Last Admin: 04/21/24 12:08 Dose: 10 mg Documented By: BUSHRA Ondansetron HCl (Ondansetron 4 Mg/2 Ml Inj) 4 mg IV NOW ONE Stop: 04/21/24 09:08 Last Admin: 04/21/24 09:20 Dose: 4 mg Documented By: DINO Propofol (Propofol 200 Mg/20 Ml Vial) 200 mg IV NOW ONE Stop: 04/21/24 09:34 Last Admin: 04/21/24 10:26 Dose: 200 mg Documented By: DINO Vital Signs Vital signs: Vital Signs - 8 hr 04/21/24 10:35 04/21/24 10:35 04/21/24 10:40 Temperature Pulse Rate 80 77 Respiratory Rate 15 Blood Pressure 136/87 Pulse Oximetry 97 96 Oxygen Delivery Method Oxygen Flow Rate 04/21/24 10:40 04/21/24 10:45 04/21/24 10:45 Temperature Pulse Rate 80 Respiratory Rate 20 Blood Pressure 135/83 121/90 Pulse Oximetry 98 Oxygen Delivery Method Oxygen Flow Rate 04/21/24 10:50 04/21/24 10:50 04/21/24 10:55 Temperature Pulse Rate 78 74 Respiratory Rate 15 17 Blood Pressure 137/93 H Pulse Oximetry 99 98 Oxygen Delivery Method Oxygen Flow Rate 04/21/24 10:55 04/21/24 11:00 04/21/24 11:00 Temperature Pulse Rate 66 Respiratory Rate 12 Blood Pressure 132/79 132/82 Pulse Oximetry 99 Oxygen Delivery Method Oxygen Flow Rate 04/21/24 11:05 04/21/24 11:05 04/21/24 11:10 Temperature Pulse Rate 69 85 Respiratory Rate 13 10 L Blood Pressure 128/83 Pulse Oximetry 100 96 Oxygen Delivery Method Oxygen Flow Rate 04/21/24 11:10 04/21/24 11:15 04/21/24 11:15 Temperature Pulse Rate 74 Respiratory Rate 10 L Blood Pressure 127/83 126/85 Pulse Oximetry 99 Oxygen Delivery Method Oxygen Flow Rate 04/21/24 11:20 04/21/24 11:20 04/21/24 11:25 Temperature Pulse Rate 66 81 Respiratory Rate 12 Blood Pressure 135/83 Pulse Oximetry 98 98 Oxygen Delivery Method Room Air Oxygen Flow Rate 04/21/24 11:25 04/21/24 11:30 04/21/24 11:30 Temperature Pulse Rate 85 Respiratory Rate 12 Blood Pressure 137/85 139/86 Pulse Oximetry 96 Oxygen Delivery Method Oxygen Flow Rate 04/21/24 11:35 04/21/24 11:35 04/21/24 11:40 Temperature Pulse Rate 80 66 Respiratory Rate 29 H 13 Blood Pressure 145/90 H Pulse Oximetry 99 98 Oxygen Delivery Method Oxygen Flow Rate 04/21/24 11:40 04/21/24 11:45 04/21/24 11:45 Temperature Pulse Rate 66 Respiratory Rate 11 L Blood Pressure 143/85 H 140/86 Pulse Oximetry 99 Oxygen Delivery Method Oxygen Flow Rate 04/21/24 11:50 04/21/24 11:50 04/21/24 11:55 Temperature Pulse Rate 73 61 Respiratory Rate 11 L 13 Blood Pressure 138/88 Pulse Oximetry 98 99 Oxygen Delivery Method Nasal Cannula Oxygen Flow Rate 2 04/21/24 11:55 04/21/24 11:58 04/21/24 12:00 Temperature 98.6 F Pulse Rate 89 69 Respiratory Rate 17 23 Blood Pressure 146/89 H 146/88 H 179/99 H Pulse Oximetry 98 99 Oxygen Delivery Method Oxygen Flow Rate 04/21/24 12:00 04/21/24 12:02 04/21/24 12:02 Temperature Pulse Rate 84 84 Respiratory Rate Blood Pressure 179/99 H Pulse Oximetry 94 Oxygen Delivery Method Oxygen Flow Rate 04/21/24 12:05 04/21/24 12:05 04/21/24 12:09 Temperature Pulse Rate 80 91 H Respiratory Rate 22 27 H Blood Pressure 156/84 H 155/84 H Pulse Oximetry 97 97 Oxygen Delivery Method Oxygen Flow Rate 04/21/24 12:09 04/21/24 12:10 04/21/24 12:10 Temperature Pulse Rate 64 64 Respiratory Rate 10 L 22 Blood Pressure 175/78 H 175/78 H Pulse Oximetry 99 98 Oxygen Delivery Method Oxygen Flow Rate 0 04/21/24 12:14 04/21/24 12:15 04/21/24 12:15 Temperature Pulse Rate 67 69 Respiratory Rate 11 L 13 Blood Pressure 146/84 H 146/84 H Pulse Oximetry 99 98 Oxygen Delivery Method Oxygen Flow Rate 04/21/24 12:20 04/21/24 12:20 04/21/24 12:25 Temperature Pulse Rate 75 70 Respiratory Rate 13 Blood Pressure 138/85 Pulse Oximetry 97 95 Oxygen Delivery Method Oxygen Flow Rate 04/21/24 12:25 04/21/24 12:30 04/21/24 12:30 Temperature Pulse Rate 77 Respiratory Rate Blood Pressure 138/84 136/87 Pulse Oximetry 99 Oxygen Delivery Method Oxygen Flow Rate 04/21/24 12:35 04/21/24 12:35 04/21/24 12:40 Temperature Pulse Rate 82 85 Respiratory Rate 12 12 Blood Pressure 130/84 Pulse Oximetry 92 93 Oxygen Delivery Method Oxygen Flow Rate 04/21/24 12:40 04/21/24 12:45 04/21/24 12:45 Temperature Pulse Rate 86 Respiratory Rate 14 Blood Pressure 128/83 134/86 Pulse Oximetry 96 Oxygen Delivery Method Oxygen Flow Rate 04/21/24 12:50 04/21/24 12:50 04/21/24 12:55 Temperature Pulse Rate 83 74 Respiratory Rate 13 16 Blood Pressure 134/87 Pulse Oximetry 98 96 Oxygen Delivery Method Oxygen Flow Rate 04/21/24 12:55 04/21/24 13:00 04/21/24 13:00 Temperature Pulse Rate 81 Respiratory Rate 9 L Blood Pressure 142/89 H 138/91 H Pulse Oximetry 97 Oxygen Delivery Method Oxygen Flow Rate 04/21/24 13:05 04/21/24 13:05 04/21/24 13:10 Temperature Pulse Rate 82 84 Respiratory Rate 16 14 Blood Pressure 141/94 H Pulse Oximetry 97 97 Oxygen Delivery Method Oxygen Flow Rate 04/21/24 13:10 04/21/24 13:15 04/21/24 13:15 Temperature Pulse Rate 81 Respiratory Rate 13 Blood Pressure 140/93 H 140/89 Pulse Oximetry 98 Oxygen Delivery Method Oxygen Flow Rate 04/21/24 13:20 04/21/24 13:20 04/21/24 13:26 Temperature Pulse Rate 75 80 Respiratory Rate 15 16 Blood Pressure 136/90 Pulse Oximetry 98 99 Oxygen Delivery Method Oxygen Flow Rate 04/21/24 13:26 04/21/24 13:30 04/21/24 13:30 Temperature Pulse Rate 79 Respiratory Rate 12 Blood Pressure 133/83 136/90 Pulse Oximetry 99 Oxygen Delivery Method Oxygen Flow Rate 04/21/24 13:45 04/21/24 13:45 04/21/24 13:50 Temperature Pulse Rate 66 67 Respiratory Rate 19 17 Blood Pressure 137/88 Pulse Oximetry 97 98 Oxygen Delivery Method Oxygen Flow Rate 04/21/24 13:50 04/21/24 13:55 04/21/24 13:55 Temperature Pulse Rate 83 Respiratory Rate 16 Blood Pressure 141/89 H 158/95 H Pulse Oximetry 99 Oxygen Delivery Method Oxygen Flow Rate 04/21/24 14:00 04/21/24 14:00 04/21/24 14:05 Temperature Pulse Rate 76 70 Respiratory Rate 14 14 Blood Pressure 140/86 Pulse Oximetry 99 99 Oxygen Delivery Method Oxygen Flow Rate 04/21/24 14:05 04/21/24 14:10 04/21/24 14:10 Temperature Pulse Rate 69 Respiratory Rate 14 Blood Pressure 150/95 H 155/100 H Pulse Oximetry 99 Oxygen Delivery Method Oxygen Flow Rate 04/21/24 14:15 04/21/24 14:15 04/21/24 14:30 Temperature Pulse Rate 65 70 Respiratory Rate 16 Blood Pressure 147/97 H Pulse Oximetry 99 98 Oxygen Delivery Method Oxygen Flow Rate 04/21/24 14:30 04/21/24 14:45 04/21/24 14:45 Temperature Pulse Rate 73 Respiratory Rate 19 Blood Pressure 145/92 H 140/82 Pulse Oximetry 94 Oxygen Delivery Method Oxygen Flow Rate 04/21/24 15:00 04/21/24 15:00 04/21/24 15:15 Temperature Pulse Rate 83 81 Respiratory Rate 14 13 Blood Pressure 137/85 Pulse Oximetry 92 96 Oxygen Delivery Method Oxygen Flow Rate 04/21/24 15:15 04/21/24 15:30 04/21/24 15:30 Temperature Pulse Rate 84 Respiratory Rate 12 Blood Pressure 142/91 H 131/80 Pulse Oximetry 94 Oxygen Delivery Method Oxygen Flow Rate 04/21/24 15:45 04/21/24 15:45 04/21/24 16:00 Temperature Pulse Rate 87 Respiratory Rate Blood Pressure 134/83 136/86 Pulse Oximetry 93 Oxygen Delivery Method Oxygen Flow Rate 04/21/24 16:00 04/21/24 16:15 04/21/24 16:15 Temperature Pulse Rate 84 85 Respiratory Rate 12 Blood Pressure 138/88 Pulse Oximetry 93 93 Oxygen Delivery Method Oxygen Flow Rate 04/21/24 16:30 04/21/24 16:30 Temperature Pulse Rate 88 Respiratory Rate 16 Blood Pressure 126/83 Pulse Oximetry 96 Oxygen Delivery Method Oxygen Flow Rate Medical Decision Making Lab Data 04/21/24 08:43 04/21/24 08:43 Labs: Lab Results 04/21/24 Range/Units 08:43 WBC 4.9 (4.5-11.0) X10^3/uL RBC 4.07 L (4.5-5.9) X10^6/uL Hgb 12.1 L (13.5-17.5) g/dL Hct 36.2 L (41-53) % MCV 89.0 (80-100) fL MCH 29.6 (26-34) PG MCHC 33.3 (30-36) % RDW 20.6 H (11.6-14.8) % Plt Count 355 (150-400) X10^3/uL Neut % (Auto) 52.1 (50-75) % Lymph % (Auto) 22.9 L (25-40) % [place] % (Auto) 19.5 H (3-14) % Eos % (Auto) 4.1 H (2-4) % Baso % (Auto) 1.4 (0-2) % Neut # (Auto) 2500 (2724-1457) /uL Lymph # (Auto) 1100 (4234-0063) /uL [place] # (Auto) 900 (0-900) /uL Eos # (Auto) 200 (0-450) /uL Baso # (Auto) 100 (0-100) /uL RBC Morphology Not Reportable Poikilocytosis 1+ H Anisocytosis 2+ H Sodium 136 L (137-145) mmol/L Potassium 4.0 (3.4-5.1) mmol/L Chloride 101 (98-107) mmol/L Carbon Dioxide 24 (22-32) mmol/L BUN 14 (9-20) mg/dL Creatinine 0.82 (0.66-1.25) mg/dL Estimated GFR > 60 (>60) mL/min BUN/Creatinine Ratio 17.1 (6-22) Glucose 83 (80-110) mg/dL Calcium 9.8 (8.4-10.2) mg/dL Total Bilirubin 0.5 (0.2-1.3) mg/dL AST 34 (17-59) IU/L ALT 16 (<50) IU/L Alkaline Phosphatase 79 (38-126) U/L Total Protein 7.9 (6.3-8.2) g/dL Albumin 4.8 (3.5-5.0) g/dL Globulin 3.1 (1.7-4.1) g/dL Albumin/Globulin Ratio 1.5 (1.0-2.8) Ethyl Alcohol < 10 ( - 10) mg/dL MDM Narrative Medical decision making narrative: CC: Recurrent left shoulder dislocation Complicating co-morbidities: Was scheduled with the [facility] for follow up on same problem today. Dislocated on April 08 was unable to be relocated in the emergency department. Was taken to the operating room for relocation on April 10. Data collected from: patient Social determinants of health that may influence the patients condition: Medical records reviewed: Most recent reduction documentation in the ER reviewed total of 120 felt mg of propofol was required and still was not able to reduce. Differential considered: Fracture, anterior dislocation, worsening supraspinatus tear Exam documented above, pertinent findings include: Left shoulder anteriorly dislocated neurovascularly intact no other findings Lab Test results independently reviewed as above. Pertinent findings: Imaging studies independently reviewed: EKG shows anterior shoulder location similar to prior imaging studies Consultations: Brief discussion with Dr. Chan, orthopedist who did the operative relocation with the patient's last ER visit. He felt that a trial of sedation and relocation in the emergency department was reasonable After initial failed reduction with large doses of propofol and etomidate, care is reviewed with , orthopedist on-call. His recommendation was to try again and use a sling and swath to completely immobilize the arm once relocated. This time, with large doses of etomidate, 40 mg and 10 mg of Versed, I was not able to relocate the shoulder at all. Discussion again with Dr. Platt. He will plan on taking this gentleman to the operating room this afternoon for general anesthesia for enough relaxation/paralyzation to relocate the shoulder. Treatments: Pain medications, sedation with propofol and etomidate repeat with etomidate and Versed Discussion: 59-year-old gentleman with left shoulder anterior dislocation recurrent. He actually had an appointment with orthopedic surgeon in [place] for further evaluation of the this morning. He awoke turned over in bed and shoulder dislocated. Unfortunately with significant doses and volumes of sedative medications and multiple valiant attempts at relocating the shoulder I was unable to do so. Dr. Pamela winston, orthopedic surgeon we will take him to the operating room to relocate shoulder and place appropriate splinting later this evening. Patient understands the overall delay in care, pain has been appropriately treated while he has been in the emergency department. Questions are answered. He does have an appointment on Thursday with another orthopedic surgeon to review the chronically dislocating left shoulder and he is planning on keeping that. Explained to him that he will need to keep his arm completely immobilized until that appointment to prevent accidental dislocation such as rolling over in bed which caused his event today He is transferred to the operating room for definitive treatment of his shoulder dislocated Discharge Plan Departure Patient Disposition: Admitted to Surgery Clinical Impression: Anterior dislocation of left shoulder Qualifiers: Encounter type: initial encounter Qualified Code(s): S43.015A - Anterior dislocation of left humerus, initial encounter Admit Date/Time: 04/21/24 16:41 Admit Provider: Tristen Villasenor
--- NOTE | 2024-04-21 08:26 | DI.RAD.S_ITS ---
PROCEDURE: XR SHOULDER LT MIN 2V INDICATIONS: dislocation TECHNIQUE: 2 views of the shoulder were acquired. COMPARISON: [facility], CR, XR SHOULDER LT MIN 2V, 04/10/2024, 10:46. [facility], CR, XR SHOULDER LT MIN 2V, 04/10/2024, 4:11. FINDINGS: Bones: No fractures , but there is a anterior recurrent subcoracoid shoulder dislocation on the left. No suspicious bony lesions. Visualized ribs appear intact. Soft tissues: No suspicious soft tissue calcifications. IMPRESSION: Recurrent anterior left shoulder dislocation, without secondary fracture. Dictated by: Hubert Crespo M.D. on 04/21/2024 at 9:12 Approved by: Hubert Crespo M.D. on 04/21/2024 at 9:13
[2024-04-21 08:53] LABS: Add Manual Diff / Slide Review NO; Basophils Absolute Auto 100 /uL (0-100); Basophils Percent Auto 1.4 % (0-2); Eosinophils Absolute Auto 200 /uL (0-450); Eosinophils Percent Auto 4.1 % (2-4); Hematocrit 36.2 % (41-53); Hemoglobin 12.1 g/dL (13.5-17.5); Lymphocytes Absolute Auto 1100 /uL (1100-4500); Lymphocytes Percent Auto 22.9 % (25-40); Mean Corpuscular HGB Conc 33.3 % (30-36); Mean Corpuscular Hemoglobin 29.6 PG (26-34); Monocytes Absolute Auto 900 /uL (0-900); Monocytes Percent Auto 19.5 % (3-14); Neutrophils Absolute Auto 2500 /uL (1500-7000); Neutrophils Percent Auto 52.1 % (50-75); Platelet Count 355 X10^3/uL (150-400); Red Blood Cell Count 4.07 X10^6/uL (4.5-5.9); Red Cell Distribution Width 20.6 % (11.6-14.8); White Blood Cell Count 4.9 X10^3/uL (4.5-11.0)
[2024-04-21 09:02] LABS: Anisocytosis 2+; Poikilocytosis 1+
[2024-04-21 09:12] LABS: Alanine Aminotransferase 16 IU/L (<50); Albumin 4.8 g/dL (3.5-5.0); Albumin Globulin Ratio 1.5 (1.0-2.8); Alkaline Phosphatase 79 U/L (38-126); Aspartate Aminotransferase 34 IU/L (17-59); BUN Creatinine Ratio 17.1 (6-22); Bilirubin Total 0.5 mg/dL (0.2-1.3); Blood Urea Nitrogen 14 mg/dL (9-20); Calcium 9.8 mg/dL (8.4-10.2); Carbon Dioxide 24 mmol/L (22-32); Chloride 101 mmol/L (98-107); Estimated Glomerular Filt Rate > 60 mL/min (>60); Ethanol (ETOH) < 10 mg/dL; Globulin 3.1 g/dL (1.7-4.1); Glucose 83 mg/dL (80-110); HEMOLYSIS 24 (0-50); Sodium 136 mmol/L (137-145); Total Protein 7.9 g/dL (6.3-8.2)
[2024-04-21] MEDS: ONDANSETRON 4 MG/2 ML INJ IV (09:20)
[2024-04-21] MEDS: HYDROMORPHONE 1 MG INJ 0.5 MG IV ×2 (09:20→22:36)
[2024-04-21] MEDS: HYDROMORPHONE 1 MG INJ IV ×3 (09:45→15:09)
[2024-04-21] MEDS: propofoL 200 MG/20 ML VIAL IV (10:26)
[2024-04-21] MEDS: ETOMIDATE 2 MG/ML 10 ML VIAL 15 MG IV (10:27)
[2024-04-21] MEDS: ETOMIDATE 2 MG/ML 10 ML VIAL 25 MG IV (10:34)
--- NOTE | 2024-04-21 10:53 | PC.NURSE ---
pt required 200mg of propofol , and a total of 35 mg of etomidate . pt was still arousable during procedure and talking. dr. daniels at bedside
[2024-04-21] MEDS: ETOMIDATE 2 MG/ML 10 ML VIAL 40 MG IV (11:55)
[2024-04-21] MEDS: MIDAZOLAM 2 MG/2 ML VIAL 10 MG IV (12:08)
--- NOTE | 2024-04-21 14:26 | PC.NURSE ---
Pt states he was getting ready to go to Ortho appt at to figure out why his shoulder keeps popping out of place. As pt was getting up his left shoulder dislocated. Deformity noted. Good profusion and pulses noted to extremity. Pt reports unsuccessful reduction in ER. Currently waiting on Ortho call back. Pt A&O x4.
--- NOTE | 2024-04-21 18:20 | SUR.OPER ---
Supine on padded STRETCHER, head on pillow, arms at <90 degrees abduction, legs uncrossed, safety belt at thigh
--- NOTE | 2024-04-21 18:37 | PM.HP.1 ---
History of Present Illness History of Present Illness Chief complaint: L Shoulder Pain Narrative: I was consulted regarding the patient this afternoon. He has had recurrent left shoulder dislocations in his in the process of going to the [facility] for assessment for management. Per report from the emergency department they were able to successfully reduce it 3 times but it would immediately dislocate. On the 4th attempt they were unable to reduce it. The patient denies any new neurovascular symptoms distally in his left hand. 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 He says he has had too many shoulder dislocations to count. [facility] Medical History (Updated 04/21/24 @ 18:38 by Maggie Crane MD) Anterior dislocation of left shoulder Claustrophobia Pancreatitis GERD (gastroesophageal reflux disease) Hypertension Surgical History Tracheostomy status History of hip surgery Social History household members: family Smoking Status: Never smoker alcohol intake: former Meds Home Medications and Allergies Home Medications Medication Instructions Recorded Confirmed Type acetaminophen 500 mg tablet 1,000 mg PO Q6H PRN pain/ fever 02/19/20 04/21/24 History (Tylenol Extra Strength) cholecalciferol (vitamin D3) 25 25 mcg PO DAILY 02/19/20 04/10/24 History mcg (1,000 unit) capsule cyanocobalamin (vitamin B-12) 1,000 mcg PO DAILY 02/19/20 04/10/24 History 1,000 mcg tablet (Vitamin B-12) folic acid 400 mcg tablet 0.4 mg PO DAILY 02/19/20 04/10/24 History lorazepam 1 mg tablet 1 mg PO TID 02/19/20 04/21/24 History magnesium oxide 400 mg PO BID 02/19/20 04/10/24 History multivitamin with minerals-folic 200 mcg PO DAILY 02/19/20 04/10/24 History acid 200 mcg chewable tablet (Adult Multivitamin Gummies) thiamine HCl (vitamin B1) 100 mg 100 mg PO DAILY 02/19/20 04/10/24 History tablet gabapentin 600 mg PO TID 04/26/23 04/21/24 History wkqtjx-crutryzr-keytlpi 1 cap PO 3XD 04/10/24 04/10/24 History 6,000-19,000-30,000 unit capsule,delayed rel (Creon) oxycodone-acetaminophen 5 mg-325 2 tab PO Q4-6H PRN pain #60 tabs 04/10/24 Rx mg tablet (Percocet) pantoprazole 40 mg tablet,delayed 40 mg PO DAILY 04/10/24 04/21/24 History release (Protonix) potassium chloride 20 mEq 20 meq PO DAILY 04/21/24 04/21/24 History tablet,extended release(part/cryst) Allergies Allergy/AdvReac Type Severity Reaction Status Date / Time lisinopril Allergy Severe Swollen Verified 03/22/24 09:59 throat, lips and face Review of Systems Review of Systems ROS: Yes All systems reviewed with the patient and are negative except as otherwise documented Exam Vital Signs (past 8 hours): - 04/21/24 10:40 04/21/24 10:40 04/21/24 10:45 Temperature Pulse Rate 77 80 Respiratory Rate 15 20 Blood Pressure 135/83 Pulse Oximetry 96 98 Oxygen Delivery Method Oxygen Flow Rate 04/21/24 10:45 04/21/24 10:50 04/21/24 10:50 Temperature Pulse Rate 78 Respiratory Rate 15 Blood Pressure 121/90 137/93 H Pulse Oximetry 99 Oxygen Delivery Method Oxygen Flow Rate 04/21/24 10:55 04/21/24 10:55 04/21/24 11:00 Temperature Pulse Rate 74 66 Respiratory Rate 17 12 Blood Pressure 132/79 Pulse Oximetry 98 99 Oxygen Delivery Method Oxygen Flow Rate 04/21/24 11:00 04/21/24 11:05 04/21/24 11:05 Temperature Pulse Rate 69 Respiratory Rate 13 Blood Pressure 132/82 128/83 Pulse Oximetry 100 Oxygen Delivery Method Oxygen Flow Rate 04/21/24 11:10 04/21/24 11:10 04/21/24 11:15 Temperature Pulse Rate 85 74 Respiratory Rate 10 L 10 L Blood Pressure 127/83 Pulse Oximetry 96 99 Oxygen Delivery Method Oxygen Flow Rate 04/21/24 11:15 04/21/24 11:20 04/21/24 11:20 Temperature Pulse Rate 66 Respiratory Rate Blood Pressure 126/85 135/83 Pulse Oximetry 98 Oxygen Delivery Method Oxygen Flow Rate 04/21/24 11:25 04/21/24 11:25 04/21/24 11:30 Temperature Pulse Rate 81 85 Respiratory Rate 12 12 Blood Pressure 137/85 Pulse Oximetry 98 96 Oxygen Delivery Method Room Air Oxygen Flow Rate 04/21/24 11:30 04/21/24 11:35 04/21/24 11:35 Temperature Pulse Rate 80 Respiratory Rate 29 H Blood Pressure 139/86 145/90 H Pulse Oximetry 99 Oxygen Delivery Method Oxygen Flow Rate 04/21/24 11:40 04/21/24 11:40 04/21/24 11:45 Temperature Pulse Rate 66 66 Respiratory Rate 13 11 L Blood Pressure 143/85 H Pulse Oximetry 98 99 Oxygen Delivery Method Oxygen Flow Rate 04/21/24 11:45 04/21/24 11:50 04/21/24 11:50 Temperature Pulse Rate 73 Respiratory Rate 11 L Blood Pressure 140/86 138/88 Pulse Oximetry 98 Oxygen Delivery Method Oxygen Flow Rate 04/21/24 11:55 04/21/24 11:55 04/21/24 11:58 Temperature 98.6 F Pulse Rate 61 89 Respiratory Rate 13 17 Blood Pressure 146/89 H 146/88 H Pulse Oximetry 99 98 Oxygen Delivery Method Nasal Cannula Oxygen Flow Rate 2 04/21/24 12:00 04/21/24 12:00 04/21/24 12:02 Temperature Pulse Rate 69 84 84 Respiratory Rate 23 Blood Pressure 179/99 H Pulse Oximetry 99 94 Oxygen Delivery Method Oxygen Flow Rate 04/21/24 12:02 04/21/24 12:05 04/21/24 12:05 Temperature Pulse Rate 80 Respiratory Rate 22 Blood Pressure 179/99 H 156/84 H Pulse Oximetry 97 Oxygen Delivery Method Oxygen Flow Rate 04/21/24 12:09 04/21/24 12:09 04/21/24 12:10 Temperature Pulse Rate 91 H 64 64 Respiratory Rate 27 H 10 L 22 Blood Pressure 155/84 H 175/78 H Pulse Oximetry 97 99 98 Oxygen Delivery Method Oxygen Flow Rate 0 04/21/24 12:10 04/21/24 12:14 04/21/24 12:15 Temperature Pulse Rate 67 69 Respiratory Rate 11 L 13 Blood Pressure 175/78 H 146/84 H Pulse Oximetry 99 98 Oxygen Delivery Method Oxygen Flow Rate 04/21/24 12:15 04/21/24 12:20 04/21/24 12:20 Temperature Pulse Rate 75 Respiratory Rate 13 Blood Pressure 146/84 H 138/85 Pulse Oximetry 97 Oxygen Delivery Method Oxygen Flow Rate 04/21/24 12:25 04/21/24 12:25 04/21/24 12:30 Temperature Pulse Rate 70 Respiratory Rate Blood Pressure 138/84 136/87 Pulse Oximetry 95 Oxygen Delivery Method Oxygen Flow Rate 04/21/24 12:30 04/21/24 12:35 04/21/24 12:35 Temperature Pulse Rate 77 82 Respiratory Rate 12 Blood Pressure 130/84 Pulse Oximetry 99 92 Oxygen Delivery Method Oxygen Flow Rate 04/21/24 12:40 04/21/24 12:40 04/21/24 12:45 Temperature Pulse Rate 85 86 Respiratory Rate 12 14 Blood Pressure 128/83 Pulse Oximetry 93 96 Oxygen Delivery Method Oxygen Flow Rate 04/21/24 12:45 04/21/24 12:50 04/21/24 12:50 Temperature Pulse Rate 83 Respiratory Rate 13 Blood Pressure 134/86 134/87 Pulse Oximetry 98 Oxygen Delivery Method Oxygen Flow Rate 04/21/24 12:55 04/21/24 12:55 04/21/24 13:00 Temperature Pulse Rate 74 Respiratory Rate 16 Blood Pressure 142/89 H 138/91 H Pulse Oximetry 96 Oxygen Delivery Method Oxygen Flow Rate 04/21/24 13:00 04/21/24 13:05 04/21/24 13:05 Temperature Pulse Rate 81 82 Respiratory Rate 9 L 16 Blood Pressure 141/94 H Pulse Oximetry 97 97 Oxygen Delivery Method Oxygen Flow Rate 04/21/24 13:10 04/21/24 13:10 04/21/24 13:15 Temperature Pulse Rate 84 81 Respiratory Rate 14 13 Blood Pressure 140/93 H Pulse Oximetry 97 98 Oxygen Delivery Method Oxygen Flow Rate 04/21/24 13:15 04/21/24 13:20 04/21/24 13:20 Temperature Pulse Rate 75 Respiratory Rate 15 Blood Pressure 140/89 136/90 Pulse Oximetry 98 Oxygen Delivery Method Oxygen Flow Rate 04/21/24 13:26 04/21/24 13:26 04/21/24 13:30 Temperature Pulse Rate 80 79 Respiratory Rate 16 12 Blood Pressure 133/83 Pulse Oximetry 99 99 Oxygen Delivery Method Oxygen Flow Rate 04/21/24 13:30 04/21/24 13:45 04/21/24 13:45 Temperature Pulse Rate 66 Respiratory Rate 19 Blood Pressure 136/90 137/88 Pulse Oximetry 97 Oxygen Delivery Method Oxygen Flow Rate 04/21/24 13:50 04/21/24 13:50 04/21/24 13:55 Temperature Pulse Rate 67 83 Respiratory Rate 17 16 Blood Pressure 141/89 H Pulse Oximetry 98 99 Oxygen Delivery Method Oxygen Flow Rate 04/21/24 13:55 04/21/24 14:00 04/21/24 14:00 Temperature Pulse Rate 76 Respiratory Rate 14 Blood Pressure 158/95 H 140/86 Pulse Oximetry 99 Oxygen Delivery Method Oxygen Flow Rate 04/21/24 14:05 04/21/24 14:05 04/21/24 14:10 Temperature Pulse Rate 70 69 Respiratory Rate 14 14 Blood Pressure 150/95 H Pulse Oximetry 99 99 Oxygen Delivery Method Oxygen Flow Rate 04/21/24 14:10 04/21/24 14:15 04/21/24 14:15 Temperature Pulse Rate 65 Respiratory Rate 16 Blood Pressure 155/100 H 147/97 H Pulse Oximetry 99 Oxygen Delivery Method Oxygen Flow Rate 04/21/24 14:30 04/21/24 14:30 04/21/24 14:45 Temperature Pulse Rate 70 73 Respiratory Rate 19 Blood Pressure 145/92 H Pulse Oximetry 98 94 Oxygen Delivery Method Oxygen Flow Rate 04/21/24 14:45 04/21/24 15:00 04/21/24 15:00 Temperature Pulse Rate 83 Respiratory Rate 14 Blood Pressure 140/82 137/85 Pulse Oximetry 92 Oxygen Delivery Method Oxygen Flow Rate 04/21/24 15:15 04/21/24 15:15 04/21/24 15:30 Temperature Pulse Rate 81 84 Respiratory Rate 13 12 Blood Pressure 142/91 H Pulse Oximetry 96 94 Oxygen Delivery Method Oxygen Flow Rate 04/21/24 15:30 04/21/24 15:45 04/21/24 15:45 Temperature Pulse Rate 87 Respiratory Rate Blood Pressure 131/80 134/83 Pulse Oximetry 93 Oxygen Delivery Method Oxygen Flow Rate 04/21/24 16:00 04/21/24 16:00 04/21/24 16:15 Temperature Pulse Rate 84 Respiratory Rate 12 Blood Pressure 136/86 138/88 Pulse Oximetry 93 Oxygen Delivery Method Oxygen Flow Rate 04/21/24 16:15 04/21/24 16:30 04/21/24 16:30 Temperature Pulse Rate 85 88 Respiratory Rate 16 Blood Pressure 126/83 Pulse Oximetry 93 96 Oxygen Delivery Method Oxygen Flow Rate 04/21/24 16:45 04/21/24 16:45 04/21/24 17:57 Temperature 98.9 F 98.5 F Pulse Rate 75 66 Respiratory Rate 15 16 Blood Pressure 124/88 138/88 Pulse Oximetry 96 98 Oxygen Delivery Method Room Air Oxygen Flow Rate Oxygen Delivery Method Room Air Oxygen Flow Rate 0 Narrative Exam Narrative: Left upper extremity examination demonstrates shoulder held in a internally rotated position. Shoulder range of motion examination deferred given known dislocation. Gives thumbs up, cross his fingers, make okay sign. Endorses intact sensation in the hand although he does have diminished sensation due to his chronic peripheral neuropathy Const General: cooperative Orientation: alert and awake HENMT Head: normal to inspection Ears: hearing grossly normal bilaterally Eyes General: appearance normal, both eyes and all related structures Neck Neck: normal visual inspection Resp Effort & Inspection: normal respiratory effort and able to speak in complete sentences Cardio Pulses: other (peripheral pulses present) Skin Lesions: no lesions Rashes: no rashes Neuro General: patient alert, patient awake and moves all extremities Psych Appearance: grossly normal Objective Labs 04/21/24 08:43 04/21/24 08:43 Labs: Laboratory Results - last 24 hr 04/21/24 08:43 WBC 4.9 RBC 4.07 L Hgb 12.1 L Hct 36.2 L MCV 89.0 MCH 29.6 MCHC 33.3 RDW 20.6 H Plt Count 355 Neut % (Auto) 52.1 Lymph % (Auto) 22.9 L [place] % (Auto) 19.5 H Eos % (Auto) 4.1 H Baso % (Auto) 1.4 Neut # (Auto) 2500 Lymph # (Auto) 1100 [place] # (Auto) 900 Eos # (Auto) 200 Baso # (Auto) 100 RBC Morphology Not Reportable Poikilocytosis 1+ H Anisocytosis 2+ H Sodium 136 L Potassium 4.0 Chloride 101 Carbon Dioxide 24 BUN 14 Creatinine 0.82 Estimated GFR > 60 BUN/Creatinine Ratio 17.1 Glucose 83 Calcium 9.8 Total Bilirubin 0.5 AST 34 ALT 16 Alkaline Phosphatase 79 Total Protein 7.9 Albumin 4.8 Globulin 3.1 Albumin/Globulin Ratio 1.5 Ethyl Alcohol < 10 Assessment & Plan Assessment and plan (1) Anterior dislocation of left shoulder: Qualifiers: Encounter type: initial encounter Qualified Code(s): S43.015A - Anterior dislocation of left humerus, initial encounter Status: Acute Plan Plan to proceed with shoulder reduction today under anesthesia. Patient will be placed in a sling and abdominal binder for mobilization after reduction. Patient was advised to maintain himself in this sling and binder and to follow up expediently with his shoulder surgeon. Time-Based Coding :: [TOTAL MINUTES] spent with patient and on the chart (including review of chart, obtaining history, exam, reviewing outside data, placing orders, documenting exam and treatment plan, and counseling patient) on [DATE].
--- NOTE | 2024-04-21 19:30 | PM.OP.1 ---
Operative Date/Time/Diagnoses Date of procedure: 04/21/24 Pre-op diagnosis: Left shoulder dislocation Post-op diagnosis: same Procedure & Clinicians Procedure: Closed reduction left shoulder Same procedure as scheduled: Yes Surgeon: Tristen Villasenor Click Yes if Unassisted: Yes Anesthesia Type: Sedation Operative Notes Procedure in detail: This 59-year-old male patient has had recurrent left shoulder dislocations. An attempt was performed in the emergency department today which was unsuccessful. He was brought to the operating room and sedation was utilized in the form of propofol and ketamine. The left shoulder was reduced using manual distraction in the axilla and external rotation of the shoulder. There was a palpable clunk. A flat plate radiograph was obtained demonstrating concentric reduction of the shoulder. The patient was placed in a sling with an abdominal binder. He has been instructed to leave his shoulder in that configuration for the foreseeable future. He is due to follow up with the [facility] in the near future for discussion of surgical stabilization of his shoulder. He has had numerous dislocations
[2024-04-21] MEDS: OXYCODONE IR 10 MG TABLET PO (21:01)
[2024-04-21] MEDS: GABAPENTIN 600 MG TABLET PO (21:01)
[2024-04-21] MEDS: ACETAMINOPHEN 325 MG TABLET 650 MG PO (21:01)
[2024-04-21] MEDS: IBUPROFEN 600 MG TABLET PO (21:02)
[2024-04-21] MEDS: MAGNESIUM OXIDE 400 MG TABLET PO (21:02)
[2024-04-21] MEDS: LORazepam 1 MG TABLET PO (21:02)
[2024-04-21] MEDS: diphenhydrAMINE 25 MG TABLET 50 MG PO (23:22)
[2024-04-22] MEDS: OXYCODONE IR 10 MG TABLET PO ×4 (00:14→09:06)
[2024-04-22] MEDS: IBUPROFEN 600 MG TABLET PO ×2 (03:04→09:03)
[2024-04-22] MEDS: ACETAMINOPHEN 325 MG TABLET 650 MG PO ×2 (03:04→09:03)
[2024-04-22 04:00] VITALS: BP 122/75; PULSE 81; RESP 18; TEMP 36.2; O2SAT 94
[2024-04-22 06:50] LABS: Add Manual Diff / Slide Review NO; Basophils Absolute Auto 0 /uL (0-100); Basophils Percent Auto 1.3 % (0-2); Eosinophils Absolute Auto 200 /uL (0-450); Eosinophils Percent Auto 5.1 % (2-4); Hematocrit 35.4 % (41-53); Hemoglobin 11.8 g/dL (13.5-17.5); Lymphocytes Absolute Auto 800 /uL (1100-4500); Lymphocytes Percent Auto 20.5 % (25-40); Mean Corpuscular HGB Conc 33.2 % (30-36); Mean Corpuscular Hemoglobin 29.9 PG (26-34); Mean Corpuscular Volume 90.1 fL (80-100); Monocytes Absolute Auto 800 /uL (0-900); Monocytes Percent Auto 21.7 % (3-14); Neutrophils Absolute Auto 1900 /uL (1500-7000); Neutrophils Percent Auto 51.4 % (50-75); Platelet Count 367 X10^3/uL (150-400); Red Blood Cell Count 3.93 X10^6/uL (4.5-5.9); Red Cell Distribution Width 20.2 % (11.6-14.8); White Blood Cell Count 3.8 X10^3/uL (4.5-11.0)
[2024-04-22 07:00] LABS: Blood Urea Nitrogen 12 mg/dL (9-20); Calcium 9.1 mg/dL (8.4-10.2); Carbon Dioxide 28 mmol/L (22-32); Chloride 100 mmol/L (98-107); Estimated Glomerular Filt Rate > 60 mL/min (>60); Glucose 105 mg/dL (80-110); HEMOLYSIS < 15 (0-50); Potassium 4.1 mmol/L (3.4-5.1); Sodium 134 mmol/L (137-145)
[2024-04-22 07:18] LABS: Anisocytosis 1+; Poikilocytosis 1+
--- NOTE | 2024-04-22 07:57 | P.DS_ITS ---
History of Present Illness History of Present Illness Chief complaint: L Shoulder Pain Narrative: 59-year-old gentleman with a history of multiple left shoulder dislocations. Most recent was April 08, seen by orthopedics on April 10 with operative reduction of the shoulder as this was unable to be reduced in the emergency department. He apparently rolled over in bed and dislocated his left shoulder 04/21/2024. Reduction was attempted in the emergency room was unsuccessful. Orthopedics was consulted and left shoulder had to be reduced under anesthesia. Discharge Providers Provider Date of admission: 04/21/24 16:41 Discharge Date: 04/22/24 Primary care physician: Sindy Ramos PA-C Consults: 04/21/24 20:05 Consult to Discharge Planning Routine Comment: Discharge provider: Kirt Pablo PA-C Summary Hospital Course Discharge Diagnosis: Chronic left shoulder dislocations Hospital Course: Closed reduction left shoulder Same procedure as scheduled: Yes Surgeon: Tristen Villasenor Click Yes if Unassisted: Yes Anesthesia Type: Sedation Operative Notes Procedure in detail: This 59-year-old male patient has had recurrent left shoulder dislocations. An attempt was performed in the emergency department today which was unsuccessful. He was brought to the operating room and sedation was utilized in the form of propofol and ketamine. The left shoulder was reduced using manual distraction in the axilla and external rotation of the shoulder. There was a palpable clunk. A flat plate radiograph was obtained demonstrating concentric reduction of the shoulder. The patient was placed in a sling with an abdominal binder. He has been instructed to leave his shoulder in that configuration for the foreseeable future. He is due to follow up with the [facility] in the near future for discussion of surgical stabilization of his shoulder. He has had numerous dislocations Status at Discharge Cognitive/behavioral status at discharge: oriented Functional status at discharge: independent ambulation Overall status at discharge: patient is back to baseline Time Spent with Patient Time spent: Less than 30 minutes Exam Vital Signs (past 8 hours): - 04/22/24 04:00 Temperature 97.1 F L Pulse Rate 81 Respiratory Rate 18 Blood Pressure 122/75 Pulse Oximetry 94 Oxygen Flow Rate 0 Oxygen Delivery Method Room Air Oxygen Flow Rate 0 Narrative Exam Narrative: Left arm is immobilized in sling and shoulder wrap. Left Axillary nerve intact. Observe fingers able to wiggle. Capillary refills less than 2 seconds. Objective Labs 04/22/24 06:08 04/22/24 06:08 Labs: Laboratory Results - last 24 hr 04/21/24 04/22/24 08:43 06:08 WBC 4.9 3.8 L RBC 4.07 L 3.93 L Hgb 12.1 L 11.8 L Hct 36.2 L 35.4 L MCV 89.0 90.1 MCH 29.6 29.9 MCHC 33.3 33.2 RDW 20.6 H 20.2 H Plt Count 355 367 Neut % (Auto) 52.1 51.4 Lymph % (Auto) 22.9 L 20.5 L [place] % (Auto) 19.5 H 21.7 H Eos % (Auto) 4.1 H 5.1 H Baso % (Auto) 1.4 1.3 Neut # (Auto) 2500 1900 Lymph # (Auto) 1100 800 L [place] # (Auto) 900 800 Eos # (Auto) 200 200 Baso # (Auto) 100 0 RBC Morphology Not Reportable Not Reportable Poikilocytosis 1+ H 1+ H Anisocytosis 2+ H 1+ H Sodium 136 L 134 L Potassium 4.0 4.1 Chloride 101 100 Carbon Dioxide 24 28 BUN 14 12 Creatinine 0.82 0.92 Estimated GFR > 60 > 60 BUN/Creatinine Ratio 17.1 13.0 Glucose 83 105 Calcium 9.8 9.1 Total Bilirubin 0.5 AST 34 ALT 16 Alkaline Phosphatase 79 Total Protein 7.9 Albumin 4.8 Globulin 3.1 Albumin/Globulin Ratio 1.5 Ethyl Alcohol < 10 PFSH Medical History (Updated 04/21/24 @ 18:38 by Maggie Crane MD) Anterior dislocation of left shoulder Claustrophobia Pancreatitis GERD (gastroesophageal reflux disease) Hypertension Surgical History Tracheostomy status History of hip surgery Social History household members: family Smoking Status: Never smoker alcohol intake: former Discharge Assessment & Plan Assessment and Plan Assessment: Status post left shoulder closed reduction under anesthesia Plan of Treatment: Patient is to keep left arm in shoulder sling and abdominal immobilizer until he follows up with [facility]. He has been dispensed a left shoulder immobilizer which he may utilize after his visit at the [facility] under their instruction. Patient is prescribed oxycodone 5 mg take 1 tablet every 4 hours as needed for any breakthrough pain. Otherwise baseline pain controlled with acetaminophen 500 mg q.4 hours. Any increased numbness tingling pain or dislocation of the left shoulder, patient is to return to emergency room. Discharge Plan Discharge Plan Patient Disposition: Home Discharge orders & Medications Prescriptions: New oxycodone 5 mg Tablet 5 mg PO Q4HR PRN (Reason: Pain, Moderate (4-6)) Qty: 20 0RF Continued cyanocobalamin (vitamin B-12) [Vitamin B-12] 1,000 mcg Tablet 1,000 mcg PO DAILY thiamine HCl (vitamin B1) 100 mg Tablet 100 mg PO DAILY folic acid 400 mcg Tablet 0.4 mg PO DAILY acetaminophen [Tylenol Extra Strength] 500 mg Tablet 1,000 mg PO Q6H PRN (Reason: pain/ fever) lorazepam 1 mg Tablet 1 mg PO TID cholecalciferol (vitamin D3) 25 mcg (1,000 unit) Capsule 25 mcg PO DAILY multivit with min-folic acid [Adult Multivitamin Gummies] 200 mcg Tablet,Chewable 200 mcg PO DAILY magnesium oxide 400 mg magnesium Tablet 800 mg PO BEDTIME gabapentin 200 mg capsule 600 mg PO TID potassium chloride 20 mEq tablet,ER particles/crystals 20 meq PO DAILY All Day Calcium 1,000 mg tablet 1,000 mg PO DAILY Chewable Vitamin C 1,000 mg tablet 1,000 mg PO DAILY Creon 6,000-19,000 -30,000 unit capsule,delayed release(DR/EC) 1 cap PO 3XD pantoprazole [Protonix] 40 mg Tablet,Delayed Release (Dr/Ec) 40 mg PO DAILY Follow up/Referrals: Sindy Ramos PA-C [Primary Care Provider] - Diet/Activity/Treatments Diet: Diet as Tolerated Activity: Keep left arm immobilized until visit at [facility] April 25, 2024 Skin/Wound/Dressing Care Report to your healthcare provider any signs of infection, such as:: chills, fever, night sweats, unusual drainage and unusual redness Visit Report/Discharge Packet Instructions: DI for Prescription Opioid Use Stand Alone Forms: Patient Portal/API, Stroke Signs & Symptoms Discharge Data Primary Care Provider: Sindy Ramos Attending Provider: Tristen Villasenor Admit Date/Time: 04/21/24 16:41
[2024-04-22 08:00] VITALS: BP 125/85; PULSE 72; RESP 17; TEMP 36.4; O2SAT 98
[2024-04-22] MEDS: FOLIC ACID 1 MG TABLET PO (09:04)
[2024-04-22] MEDS: CYANOCOBALAMIN (VITAMIN B-12) 500 MCG TABLET 1000 MCG PO (09:04)
[2024-04-22] MEDS: GABAPENTIN 600 MG TABLET PO (09:04)
[2024-04-22] MEDS: CHOLECALCIFEROL (VITAMIN D3) 1,000 UNIT TABLET 1000 UNIT PO (09:04)
[2024-04-22] MEDS: CARBOXYMETHYLCELLULOSE DROPS 1 DROPS EYE-BOTH (09:05)
[2024-04-22] MEDS: THIAMINE 100 MG TABLET PO (09:05)
[2024-04-22] MEDS: MAGNESIUM OXIDE 400 MG TABLET PO (09:05)
[2024-04-22] MEDS: PANTOPRAZOLE DR 40 MG TABLET PO (09:05)
[2024-04-22] MEDS: POTASSIUM CHLORIDE 20 MEQ TAB PO (09:05)
[2024-04-22] MEDS: MULTIVITAMIN 1 TABLET 1 TAB PO (09:05)
[2024-04-22] MEDS: LIPASE/PROTEASE/AMYLASE 5/17/24 CAP PO (09:10)
[2024-04-22] MEDS: LORazepam 1 MG TABLET PO (09:10)
--- NOTE | 2024-04-22 10:56 | CM.DANOTE ---
Patient admitted with L shoulder dislocation, requiring anesthesia for reduction. This is a frequent issue and the patient is planned to consult at for surgical stabilization. Patient lives at home with his Mother and was previously independent with all ADLs, but does have difficulty with transportation. Patient has [employer] MCR and Medicaid- but his Medicaid plan is a QI1 plan that does not cover any additional services, only his Medicare premiums. Cab voucher approved and Robb lloyd arranged, notified patient and RN patient can d/c with taxi voucher. KAYLA Moscoso
--- NOTE | 2024-04-22 11:54 | PC.NURSE ---
Pt is A&OX4, VSS, on RA. He reports pain initially to L shoulder 03/08. Medicated with scheduled medications and prn 10 mg oxycodone, with fair effect. His behaviors indicate some relief although he states pain still severe. He is cleared for discharge by ortho PA with prescription pain medication to [facility] and f/up at Thursday the . He verbalizes understanding of meds, activity restrictions, to keep shoulder sling&abdominal binder in place until appointment, and not to remove (sponge bathing only). He is escorted via w/ch by RN to [facility] (voucher given by [facility]) with all of his belongings at approximately 1130 a.m.
== END 2024-04-22 11:28 | disposition home or self-care (01) ==
LOC: ED 11:13 → AC 16:42
PROVIDERS: Admitting Provider Orthopaedic Surgery Adult Reconstructive Orthopaedic Surgery; Emergency Provider Emergency Medicine; PCP Physician Assistant; Referring Provider Emergency Medicine; Visit Provider Orthopaedic Surgery Adult Reconstructive Orthopaedic Surgery
PROC: (CPT 23655; principal; 2024-04-21 17:00)
DX: S43.015A Anterior dislocation of left humerus, initial encounter (principal); M24.412 Recurrent dislocation, left shoulder
CPT/HCPCS: 23655; 23650; 36415; 73020; 73030; 80048; 80053; 80320; 85025; 96374; 96375; 96376; 99152; 99153; 99285; G0378; A9270; J1171; J2250; J2405; J2704

== ENCOUNTER 2024-04-28 22:17 | Observation (INO) | payer OTHER, SELFPAY ==
[2024-04-21 20:00] VITALS: BMI 20.5
[2024-04-28 22:26] VITALS: BP 130/84; PULSE 84; RESP 17; TEMP 36.4; O2SAT 95; BMI 20.2
[2024-04-28 22:43] VITALS: PULSE 73; O2SAT 95
[2024-04-28 23:00] VITALS: PULSE 73; O2SAT 93
--- NOTE | 2024-04-28 23:03 | DI.RAD.S_ITS ---
PROCEDURE: XR SHOULDER LT MIN 2V INDICATIONS: popped out TECHNIQUE: 3 views of the shoulder were acquired. COMPARISON: [facility], CR, XR SHOULDER LT MIN 2V, 04/08/2024, 16:41. [facility], CR, XR SHOULDER LT MIN 2V, 04/21/2024, 8:52. FINDINGS: Bones: Anterior, inferior left shoulder dislocation without acute fracture identified. Stable appearance of chronic Hill-Sachs deformity of the superolateral left humeral head. Coracoclavicular and acromioclavicular intervals are maintained. Redemonstration of healed fracture deformities of multiple posterior left-sided ribs. Soft tissues: No suspicious soft tissue calcifications. IMPRESSION: Anterior, inferior left shoulder dislocation. No acute fractures identified. Chronic Hill-Sachs deformity. Dictated by: Stewart Robertson M.D. on 04/28/2024 at 23:57 Approved by: Stewart Robertson M.D. on 04/28/2024 at 23:59
[2024-04-28 23:30] VITALS: PULSE 75; RESP 18; O2SAT 95
[2024-04-29] VITALS (51 sets, daily range): BP systolic 124–163; BP diastolic 58–101; PULSE 64–99; RESP 11–34; TEMP 35.9–37; O2SAT 91–99; BMI 20.2
--- NOTE | 2024-04-29 | DI.RAD.S_ITS ---
PROCEDURE: XR SHOULDER LT MIN 2V INDICATIONS: CLOSED REDUCTION SHOULDER LEFT TECHNIQUE: 2 views of the shoulder were acquired. COMPARISON: [facility], CR, XR SHOULDER LT MIN 2V, 04/28/2024, 23:11. [facility], CR, XR SHOULDER LT MIN 2V, 04/21/2024, 8:52. FINDINGS: Bones: Hill-Sachs deformity. Slight inferior subluxation of the humeral head compared to the glenoid following reduction, likely due to effusion. Soft tissues: No suspicious calcifications. IMPRESSION: Reduction of the anterior shoulder dislocation. Hill-Sachs impaction deformity present. Probable joint effusion. Please see operative note for full details. Dictated by: Gerber Tompkins M.D. on 04/29/2024 at 19:53 Approved by: Gerber Tompkins M.D. on 04/29/2024 at 19:54
--- NOTE | 2024-04-29 03:56 | ED_ITS ---
HPI - Extremity Injury (Upper) <Kirt Gonzales MD - Last Filed: 04/29/24 16:29> General Chief Complaint: Extremity Injury, Upper Stated Complaint: left shoulder dislocation Time Seen by Provider: 04/29/24 01:00 Source: patient and EMS Mode of arrival: EMS History of Present Illness HPI narrative: 59-year-old male with history of recurrent dislocations left shoulder, this year has had successful ED dislocation-relocation procedures in June 2023, again February 2024, and earlier last month 04/08/2024. On 04/10/2024 he had left anterior shoulder dislocation, [facility] multiple attempts using varied sedation/techniques, went to the operating room for reduction with Dr. Salmon. On 04/21/2024 patient presented here again with same left shoulder dislocation, unable to be reduced in the emergency department despite multiple techniques in sedation that also included etomidate/benzodiazepine, ultimately reduced in the operating room by Orthopedic surgery Dr. Villasenor. Overnight last night he rolled over in bed and felt like he dislocated his left shoulder again. No fall. No numbness or tingling to the distal extremity. No other injuries. Related Data Home Medications Medication Instructions Recorded Confirmed acetaminophen 500 mg tablet 1,000 mg PO Q6H PRN pain/ fever 02/19/20 04/21/24 (Tylenol Extra Strength) cholecalciferol (vitamin D3) 25 25 mcg PO DAILY 02/19/20 04/21/24 mcg (1,000 unit) capsule cyanocobalamin (vitamin B-12) 1,000 mcg PO DAILY 02/19/20 04/21/24 1,000 mcg tablet (Vitamin B-12) folic acid 400 mcg tablet 0.4 mg PO DAILY 02/19/20 04/21/24 lorazepam 1 mg tablet 1 mg PO TID 02/19/20 04/21/24 magnesium oxide 800 mg PO BEDTIME 02/19/20 04/21/24 multivitamin with minerals-folic 200 mcg PO DAILY 02/19/20 04/21/24 acid 200 mcg chewable tablet (Adult Multivitamin Gummies) thiamine HCl (vitamin B1) 100 mg 100 mg PO DAILY 02/19/20 04/21/24 tablet gabapentin 600 mg PO TID 04/26/23 04/21/24 dvctce-[id number]-[id number] 1 cap PO 3XD 04/10/24 04/21/24 6,000-19,000-30,000 unit capsule,delayed rel (Creon) pantoprazole 40 mg tablet,delayed 40 mg PO DAILY 04/10/24 04/21/24 release (Protonix) All Day Calcium 1,000 mg PO DAILY 04/21/24 04/21/24 Chewable Vitamin C 1,000 mg PO DAILY 04/21/24 04/21/24 potassium chloride 20 mEq 20 meq PO DAILY 04/21/24 04/21/24 tablet,extended release(part/cryst) Previous Rx's Medication Instructions Recorded oxycodone 5 mg tablet 5 mg PO Q4HR PRN Pain, Moderate 04/22/24 (4-6) #20 tabs Allergies Allergy/AdvReac Type Severity Reaction Status Date / Time lisinopril Allergy Severe Swollen Verified 03/22/24 09:59 throat, lips and face Review of Systems <Kirt Gonzales MD - Last Filed: 04/29/24 16:29> Review of Systems Narrative: Per HPI Patient History <Kirt Gonzales MD - Last Filed: 04/29/24 16:29> Medical History (Updated 04/29/24 @ 06:38 by Kirt Gonzales MD) Anterior dislocation of left shoulder Claustrophobia Pancreatitis GERD (gastroesophageal reflux disease) Hypertension Surgical History Tracheostomy status History of hip surgery Social History household members: family Smoking Status: Never smoker alcohol intake: former Smoking Status: Never smoker tobacco type: cigarettes alcohol intake frequency: holidays/special occasions only Alcohol type: hard liquor Substance Use Type: does not use Exam <Kirt Gonzales MD - Last Filed: 04/29/24 16:29> Narrative Exam Narrative: GENERAL: Well-developed patient, in mild distress. HEAD: Atraumatic. Normocephalic. EYES: Pupils equal round and reactive. Extraocular motions intact. No scleral icterus. No injection or drainage. ENT: Nose without bleeding, purulent drainage. Throat without erythema, tonsillar hypertrophy or exudate. Airway patent. NECK: Trachea midline. Non tender CARDIOVASCULAR: Regular rate and rhythm without murmurs, gallops, or rubs. RESPIRATORY: Clear to auscultation. Breath sounds equal bilaterally. No wheezes, rales, or rhonchi. GASTROINTESTINAL: Abdomen soft, non-tender, nondistended. EXTREMITIES: Anterior fullness to left shoulder, stepoff acromion, suspected anterior shoulder dislocation. No abrasions or contusions. Neurovascularly intact distal left upper extremity. BACK: Nontender without deformity or crepitance. No flank tenderness. NEURO: AOx3. Motor functions grossly normal, limited left upper extremity evaluation due to dislocation shoulder pain, however moves left distal fingers w rist elbow SKIN: No rash or erythema of visible areas Initial Vital Signs Initial Vital Signs: Vital Signs Temperature 97.5 F L 04/28/24 22:26 Pulse Rate 84 04/28/24 22:26 Respiratory Rate 17 04/28/24 22:26 Blood Pressure 130/84 04/28/24 22:26 Pulse Oximetry 95 04/28/24 22:26 Oxygen Delivery Method Room Air 04/28/24 22:26 <Sandee Crain DO - Last Filed: 04/29/24 07:54> Initial Vital Signs Initial Vital Signs: Vital Signs Temperature 97.5 F L 04/28/24 22:26 Pulse Rate 84 04/28/24 22:26 Respiratory Rate 17 04/28/24 22:26 Blood Pressure 130/84 04/28/24 22:26 Pulse Oximetry 95 04/28/24 22:26 Oxygen Delivery Method Room Air 04/28/24 22:26 Procedures <Kirt Gonzales MD - Last Filed: 04/29/24 16:29> Orthopedic Joint Reduction Joint #1: Time of procedure: 05:19 Time Out Performed: Yes Side: left Joint Reduction Location: shoulder Analgesia: procedural sedation Shoulder Technique Used (if applicable): traction/counter-traction, scapula manipulation and external rotation Technique used: traction/counter-traction Post-reduction neuro exam: intact Additional Comments: Unsuccessful reduction left anterior shoulder dislocation using IV conscious sedation multiple medications, no visible or palpable relocation. Procedural Sedation Time of procedure: 05:18 Consent signed: Yes Indication: fracture/dislocation reduction ASA Class: I Time of Last PO Intake: 18:00 Preparation: light oil operator applied, pulse oximeter, capnometry used, suction/airway equipment at bedside and IV secured Ketamine dose (mg): 80 IV Propofol dose (mg): 200 ED Sedation Level: Moderate (Concious) Patient Tolerated Procedure: Well Complications: none Course <Kirt Gonzales MD - Last Filed: 04/29/24 16:29> Orders Ordered: Hydromorphone HCl (Hydromorphone 0.5 Mg Inj) 0.5 mg IV Q2H PRN PRN Reason: Pain, Severe (7-10) Last Admin: 04/29/24 16:09 Dose: 0.5 mg Documented By: Admin: 04/29/24 13:37 Dose: 0.5 mg Documented By: Admin: 04/29/24 10:45 Dose: 0.5 mg Documented By: SHE Ondansetron HCl (Ondansetron 4 Mg/2 Ml Inj) 4 mg IV Q4HR PRN PRN Reason: Nausea And Vomiting Discontinued Medications Hydromorphone HCl (Hydromorphone 1 Mg Inj) 0.5 mg IV NOW ONE Stop: 04/29/24 06:56 Last Admin: 04/29/24 07:00 Dose: 0.5 mg Documented By: FREDA Sodium Chloride (Normal Saline 0.9%) 500 mls @ 1,000 mls/hr IV BOLUS ONE Stop: 04/29/24 05:14 Last Infusion: 04/29/24 05:28 Dose: Infused Documented By: Admin: 04/29/24 04:45 Dose: 1,000 mls/hr Documented By: FREDA Ketamine HCl (Ketamine 500 Mg/5 Ml Inj) 40 mg IV NOW ONE Stop: 04/29/24 04:57 Last Admin: 04/29/24 04:57 Dose: 40 mg Documented By: FREDA Ketamine HCl (Ketamine 500 Mg/5 Ml Inj) 40 mg IV NOW ONE Stop: 04/29/24 04:59 Last Admin: 04/29/24 04:55 Dose: 40 mg Documented By: FREDA Propofol (Propofol 200 Mg/20 Ml Vial) 200 mg IV NOW ONE Stop: 04/29/24 04:34 Last Admin: 04/29/24 04:40 Dose: 200 mg Documented By: FREDA Vital Signs Vital signs: Vital Signs - 8 hr 04/29/24 00:00 04/29/24 00:30 04/29/24 01:00 Pulse Rate 71 73 77 Respiratory Rate Blood Pressure Pulse Oximetry 94 93 94 04/29/24 01:30 04/29/24 02:00 04/29/24 02:30 Pulse Rate 82 75 82 Respiratory Rate Blood Pressure Pulse Oximetry 93 94 95 04/29/24 03:00 04/29/24 03:01 04/29/24 03:01 Pulse Rate 75 72 Respiratory Rate 18 Blood Pressure 134/80 Pulse Oximetry 94 94 04/29/24 03:21 04/29/24 03:21 04/29/24 03:30 Pulse Rate 77 73 Respiratory Rate 13 Blood Pressure 135/81 Pulse Oximetry 96 95 04/29/24 03:30 04/29/24 04:00 04/29/24 04:00 Pulse Rate 79 Respiratory Rate 12 Blood Pressure 139/84 136/79 Pulse Oximetry 95 04/29/24 04:30 04/29/24 04:30 04/29/24 04:35 Pulse Rate 83 88 Respiratory Rate 13 15 Blood Pressure 140/85 Pulse Oximetry 96 96 04/29/24 04:40 04/29/24 04:40 04/29/24 04:45 Pulse Rate 85 86 Respiratory Rate 12 15 Blood Pressure 142/85 H Pulse Oximetry 97 96 04/29/24 04:45 04/29/24 04:50 04/29/24 04:50 Pulse Rate 87 Respiratory Rate 21 Blood Pressure 146/83 H 136/76 Pulse Oximetry 95 04/29/24 04:55 04/29/24 04:55 04/29/24 05:00 Pulse Rate 83 81 Respiratory Rate 20 34 H Blood Pressure 126/59 L Pulse Oximetry 96 96 04/29/24 05:00 04/29/24 05:05 04/29/24 05:05 Pulse Rate 73 Respiratory Rate 24 Blood Pressure 124/58 L 145/91 H Pulse Oximetry 91 04/29/24 05:10 04/29/24 05:10 04/29/24 05:15 Pulse Rate 73 69 Respiratory Rate 11 L 16 Blood Pressure 145/90 H Pulse Oximetry 99 98 04/29/24 05:15 04/29/24 05:20 04/29/24 05:20 Pulse Rate 70 Respiratory Rate 12 Blood Pressure 146/88 H 145/89 H Pulse Oximetry 97 04/29/24 05:25 04/29/24 05:25 04/29/24 05:30 Pulse Rate 70 72 Respiratory Rate 14 Blood Pressure 145/88 H Pulse Oximetry 97 97 04/29/24 05:30 04/29/24 05:45 04/29/24 05:45 Pulse Rate 76 Respiratory Rate 12 Blood Pressure 145/88 H 153/88 H Pulse Oximetry 95 04/29/24 06:00 04/29/24 06:00 04/29/24 06:15 Pulse Rate 80 Respiratory Rate 14 Blood Pressure 153/88 H 154/87 H Pulse Oximetry 94 04/29/24 06:15 04/29/24 06:30 04/29/24 06:30 Pulse Rate 82 82 Respiratory Rate 14 14 Blood Pressure 150/85 H Pulse Oximetry 94 94 04/29/24 06:45 04/29/24 06:45 04/29/24 07:00 Pulse Rate 85 Respiratory Rate 13 Blood Pressure 154/88 H 163/92 H Pulse Oximetry 94 04/29/24 07:00 04/29/24 07:20 04/29/24 07:20 Pulse Rate 95 H 78 Respiratory Rate 24 14 Blood Pressure 153/93 H Pulse Oximetry 93 04/29/24 07:30 04/29/24 07:40 04/29/24 07:40 Pulse Rate 77 79 Respiratory Rate 11 L 12 Blood Pressure 152/88 H Pulse Oximetry 93 93 <Sandee Crain, - Last Filed: 04/29/24 07:54> Orders Ordered: Hydromorphone HCl (Hydromorphone 0.5 Mg Inj) 0.5 mg IV Q2H PRN PRN Reason: Pain, Severe (7-10) Last Admin: 04/29/24 16:09 Dose: 0.5 mg Documented By: Admin: 04/29/24 13:37 Dose: 0.5 mg Documented By: Admin: 04/29/24 10:45 Dose: 0.5 mg Documented By: SHE Ondansetron HCl (Ondansetron 4 Mg/2 Ml Inj) 4 mg IV Q4HR PRN PRN Reason: Nausea And Vomiting Discontinued Medications Hydromorphone HCl (Hydromorphone 1 Mg Inj) 0.5 mg IV NOW ONE Stop: 04/29/24 06:56 Last Admin: 04/29/24 07:00 Dose: 0.5 mg Documented By: FREDA Sodium Chloride (Normal Saline 0.9%) 500 mls @ 1,000 mls/hr IV BOLUS ONE Stop: 04/29/24 05:14 Last Infusion: 04/29/24 05:28 Dose: Infused Documented By: Admin: 04/29/24 04:45 Dose: 1,000 mls/hr Documented By: FREDA Ketamine HCl (Ketamine 500 Mg/5 Ml Inj) 40 mg IV NOW ONE Stop: 04/29/24 04:57 Last Admin: 04/29/24 04:57 Dose: 40 mg Documented By: FREDA Ketamine HCl (Ketamine 500 Mg/5 Ml Inj) 40 mg IV NOW ONE Stop: 04/29/24 04:59 Last Admin: 04/29/24 04:55 Dose: 40 mg Documented By: FREDA Propofol (Propofol 200 Mg/20 Ml Vial) 200 mg IV NOW ONE Stop: 04/29/24 04:34 Last Admin: 04/29/24 04:40 Dose: 200 mg Documented By: FRDEA Vital Signs Vital signs: Vital Signs - 8 hr 04/29/24 00:00 04/29/24 00:30 04/29/24 01:00 Pulse Rate 71 73 77 Respiratory Rate Blood Pressure Pulse Oximetry 94 93 94 04/29/24 01:30 04/29/24 02:00 04/29/24 02:30 Pulse Rate 82 75 82 Respiratory Rate Blood Pressure Pulse Oximetry 93 94 95 04/29/24 03:00 04/29/24 03:01 04/29/24 03:01 Pulse Rate 75 72 Respiratory Rate 18 Blood Pressure 134/80 Pulse Oximetry 94 94 04/29/24 03:21 04/29/24 03:21 04/29/24 03:30 Pulse Rate 77 73 Respiratory Rate 13 Blood Pressure 135/81 Pulse Oximetry 96 95 04/29/24 03:30 04/29/24 04:00 04/29/24 04:00 Pulse Rate 79 Respiratory Rate 12 Blood Pressure 139/84 136/79 Pulse Oximetry 95 04/29/24 04:30 04/29/24 04:30 04/29/24 04:35 Pulse Rate 83 88 Respiratory Rate 13 15 Blood Pressure 140/85 Pulse Oximetry 96 96 04/29/24 04:40 04/29/24 04:40 04/29/24 04:45 Pulse Rate 85 86 Respiratory Rate 12 15 Blood Pressure 142/85 H Pulse Oximetry 97 96 04/29/24 04:45 04/29/24 04:50 04/29/24 04:50 Pulse Rate 87 Respiratory Rate 21 Blood Pressure 146/83 H 136/76 Pulse Oximetry 95 04/29/24 04:55 04/29/24 04:55 04/29/24 05:00 Pulse Rate 83 81 Respiratory Rate 20 34 H Blood Pressure 126/59 L Pulse Oximetry 96 96 04/29/24 05:00 04/29/24 05:05 04/29/24 05:05 Pulse Rate 73 Respiratory Rate 24 Blood Pressure 124/58 L 145/91 H Pulse Oximetry 91 04/29/24 05:10 04/29/24 05:10 04/29/24 05:15 Pulse Rate 73 69 Respiratory Rate 11 L 16 Blood Pressure 145/90 H Pulse Oximetry 99 98 04/29/24 05:15 04/29/24 05:20 04/29/24 05:20 Pulse Rate 70 Respiratory Rate 12 Blood Pressure 146/88 H 145/89 H Pulse Oximetry 97 04/29/24 05:25 04/29/24 05:25 04/29/24 05:30 Pulse Rate 70 72 Respiratory Rate 14 Blood Pressure 145/88 H Pulse Oximetry 97 97 04/29/24 05:30 04/29/24 05:45 04/29/24 05:45 Pulse Rate 76 Respiratory Rate 12 Blood Pressure 145/88 H 153/88 H Pulse Oximetry 95 04/29/24 06:00 04/29/24 06:00 04/29/24 06:15 Pulse Rate 80 Respiratory Rate 14 Blood Pressure 153/88 H 154/87 H Pulse Oximetry 94 04/29/24 06:15 04/29/24 06:30 04/29/24 06:30 Pulse Rate 82 82 Respiratory Rate 14 14 Blood Pressure 150/85 H Pulse Oximetry 94 94 04/29/24 06:45 04/29/24 06:45 04/29/24 07:00 Pulse Rate 85 Respiratory Rate 13 Blood Pressure 154/88 H 163/92 H Pulse Oximetry 94 04/29/24 07:00 04/29/24 07:20 04/29/24 07:20 Pulse Rate 95 H 78 Respiratory Rate 24 14 Blood Pressure 153/93 H Pulse Oximetry 93 04/29/24 07:30 04/29/24 07:40 04/29/24 07:40 Pulse Rate 77 79 Respiratory Rate 11 L 12 Blood Pressure 152/88 H Pulse Oximetry 93 93 [facility] - Extremity Injury (Upper) <Kirt Gonzales MD - Last Filed: 04/29/24 16:29> [facility] Narrative Medical decision making narrative: 59-year-old male with recurrent left shoulder dislocation, multiple episodes this year and even last month March 2024, most recently successful reduction in emergency department was 04/08/2024, however had unsuccessful attempts for same left shoulder dislocation relocation on 04/10/2024 and on 04/21/2024, both times required operative closed reduction by orthopedic surgeons Rocio and Hamilton. Exam consistent with anterior dislocation left shoulder. X-ray shows anterior dislocation left shoulder, chronic appearing Hill-Sachs fracture again noted. Consented for reduction attempt. IV propofol then ketamine sedation, multiple techniques closed shoulder reduction (Jones, scapular manipulation, traction counter traction, direct manipulation, combo). None were successful. We will contact Orthopedic surgery 0520, discussed with Orthopedic surgery on-call Dr. Salmon, who stated he will reduce shoulder in the operating room later today, requests hold in ED for now. Keep NPO Dr. Crain-patient signed out to me by awaiting ortho. Seen evaluated patient myself. He is still complaining of some pain. Dr. Chan orthopedics consulted reports that patient will not likely have surgery till this afternoon. Agrees with observation <Sandee Crain DO - Last Filed: 04/29/24 07:54> Imaging Data Extremity x-ray #1: Radiologist's Impression: PROCEDURE: XR SHOULDER LT MIN 2V INDICATIONS: popped out TECHNIQUE: 3 views of the shoulder were acquired. COMPARISON: [facility], CR, XR SHOULDER LT MIN 2V, 04/08/2024, 16:41. [facility], CR, XR SHOULDER LT MIN 2V, 04/21/2024, 8:52. FINDINGS: Bones: Anterior, inferior left shoulder dislocation without acute fracture identified. Stable appearance of chronic Hill-Sachs deformity of the superolateral left humeral head. Coracoclavicular and acromioclavicular intervals are maintained. Redemonstration of healed fracture deformities of multiple posterior left-sided ribs. Soft tissues: No suspicious soft tissue calcifications. IMPRESSION: Anterior, inferior left shoulder dislocation. No acute fractures identified. Chronic Hill-Sachs deformity. Dictated by: Stewart Robertson M.D. on 04/28/2024 at 23:57 Approved by: Stewart Robertson M.D. on 04/28/2024 at 23:59 [facility] Narrative Medical decision making narrative: 59-year-old male with recurrent left shoulder dislocation, multiple episodes this year and even last month March 2024, most recently successful reduction in emergency department was 04/08/2024, however had unsuccessful attempts for same left shoulder dislocation relocation on 04/10/2024 and on 04/21/2024, both times required operative closed reduction by orthopedic surgeons Rocio and Hamilton. Exam consistent with anterior dislocation left shoulder. X-ray shows anterior dislocation left shoulder, chronic appearing Hill-Sachs fracture again noted. Consented for reduction attempt. IV propofol then ketamine sedation, multiple techniques closed shoulder reduction (Jones, scapular manipulation, traction counter traction, direct manipulation, combo). None were successful. We will contact Orthopedic surgery 0520, discussed with Orthopedic surgery on-call Dr. Chan, who can reduced josette vargas in the operating room later today, hold in ED for now. Keep NPO Dr. Crain-patient signed out to me by awaiting ortho. Seen evaluated patient myself. He is still complaining of some pain. Dr. Chan orthopedics consulted reports that patient will not likely have surgery till this afternoon. Agrees with observation Discharge Plan Departure Patient Disposition: Admitted as Observation Clinical Impression: Recurrent dislocation, left shoulder Admit Date/Time: 04/29/24 07:46 Admit Provider: Luca Chan
[2024-04-29] MEDS: propofoL 200 MG/20 ML VIAL IV (04:40)
[2024-04-29] MEDS: SODIUM CHLORIDE 0.9% 500 ML 1000 ML IV (04:45)
[2024-04-29] MEDS: KETAMINE 500 MG/5 ML INJ 40 MG IV ×2 (04:55→04:57)
--- NOTE | 2024-04-29 05:29 | PC.NURSE ---
Procedural Sedation Pt consented to procedural sedation for L shoulder reduction. Pt medicated with propofol (total 180 mg given in divided doses by Dr Gonzales) without achieving adequate sedation. Verbal order received for ketamine 40 mg IV x 2, after which pt tolerated 3 attempts to reduce L shoulder without success. Pt now recovering with vital signs stable. No s/s distress. Resps even/unlabored on room air.
[2024-04-29] MEDS: HYDROMORPHONE 1 MG INJ 0.5 MG IV (07:00)
--- NOTE | 2024-04-29 09:18 | PC.NURSE ---
Left shoulder dislocation. Frequent history of same. Pt reports pain to left shoulder. Good profusion to extremity
[2024-04-29] MEDS: HYDROMORPHONE 0.5 MG INJ IV ×4 (10:45→20:45)
--- NOTE | 2024-04-29 16:16 | PC.NURSE ---
Patient arrived from ED approximately 0930 a.m. He is A&XO4, VSS, afebrile. He is independent in the room and rates his pain to L shoulder 9-04/07. He has been NPO since 189904/28/24. Per PREOP area surgery in an add on scheduled this evening. Report given off to Petey WADE.
--- NOTE | 2024-04-29 17:26 | PM.HP.1 ---
History of Present Illness History of Present Illness Date Patient Seen: 04/29/24 Time Patient Seen: 17:26 Chief complaint: left shoulder dislocation Narrative: 59-year-old gentleman with a history of a very unstable left shoulder who has had multiple dislocations since June. Presented to the emergency room today with a dislocation of the left shoulder. Attempt at a reduction was performed in the emergency room and they were unable to reduce the left shoulder joint. [facility] Medical History Anterior dislocation of left shoulder Claustrophobia Pancreatitis GERD (gastroesophageal reflux disease) Hypertension Surgical History Tracheostomy status History of hip surgery Social History household members: family Smoking Status: Never smoker alcohol intake: current Meds Home Medications and Allergies Home Medications Medication Instructions Recorded Confirmed Type acetaminophen 500 mg tablet 1,000 mg PO Q6H PRN pain/ fever 02/19/20 04/21/24 History (Tylenol Extra Strength) cholecalciferol (vitamin D3) 25 25 mcg PO DAILY 02/19/20 04/21/24 History mcg (1,000 unit) capsule cyanocobalamin (vitamin B-12) 1,000 mcg PO DAILY 02/19/20 04/21/24 History 1,000 mcg tablet (Vitamin B-12) folic acid 400 mcg tablet 0.4 mg PO DAILY 02/19/20 04/21/24 History lorazepam 1 mg tablet 1 mg PO TID 02/19/20 04/21/24 History magnesium oxide 800 mg PO BEDTIME 02/19/20 04/21/24 History multivitamin with minerals-folic 200 mcg PO DAILY 02/19/20 04/21/24 History acid 200 mcg chewable tablet (Adult Multivitamin Gummies) thiamine HCl (vitamin B1) 100 mg 100 mg PO DAILY 02/19/20 04/21/24 History tablet gabapentin 600 mg PO TID 04/26/23 04/21/24 History qgvlgn-qwlpjrsk-btaeenw 1 cap PO 3XD 04/10/24 04/21/24 History 6,000-19,000-30,000 unit capsule,delayed rel (Creon) pantoprazole 40 mg tablet,delayed 40 mg PO DAILY 04/10/24 04/21/24 History release (Protonix) All Day Calcium 1,000 mg PO DAILY 04/21/24 04/21/24 History Chewable Vitamin C 1,000 mg PO DAILY 04/21/24 04/21/24 History potassium chloride 20 mEq 20 meq PO DAILY 04/21/24 04/21/24 History tablet,extended release(part/cryst) oxycodone 5 mg tablet 5 mg PO Q4HR PRN Pain, Moderate 04/22/24 Rx (4-6) #20 tabs Allergies Allergy/AdvReac Type Severity Reaction Status Date / Time lisinopril Allergy Severe Swollen Verified 04/29/24 16:56 throat, lips and face Exam Vital Signs (past 8 hours): - 04/29/24 15:10 04/29/24 16:32 04/29/24 17:03 Temperature 97.8 F 96.7 F L 98.6 F Pulse Rate 88 81 77 Respiratory Rate 20 15 12 Blood Pressure 138/87 138/101 H 144/95 H Pulse Oximetry 97 97 97 Oxygen Delivery Method Room Air Oxygen Flow Rate 0 0 Oxygen Delivery Method Room Air Oxygen Flow Rate 0 Narrative Exam Narrative: On exam signs of an anterior dislocated left shoulder joint. Normal range of motion of the fingers wrist and elbow. Ulnar, median, and radial nerve intact both motor and sensory function. Palpable radial pulse. Brisk cap refill. Assessment & Plan Assessment & Plan narrative: Patient with a recurrent left shoulder anterior dislocation. Due to the fact that they were unable to reduce him in the emergency room we will attempt a closed reduction in the operating room. Patient fully understands the risks and limitations associated with the procedure. The risk, benefits, alternatives, possible complications, operative course, and postop outcomes were discussed. Complications including but not limiting to bleeding, infection, fracture, nerve injury, continued pain postoperatively or instability postoperatively were discussed in detail. Medical complications including but not limited to deep venous thrombosis event, anesthesia complications with excessive bleeding, vascular events or cardiac events and other possible complications were discussed in detail. Need for postoperative rehabilitation and anticipated hospital stay and clinical course were discussed in detail. Patient acknowledges understanding and elects to proceed with surgery. Time-Based Coding :: [TOTAL MINUTES] spent with patient and on the chart (including review of chart, obtaining history, exam, reviewing outside data, placing orders, documenting exam and treatment plan, and counseling patient) on [DATE].
--- NOTE | 2024-04-29 17:29 | PM.PREOP ---
Pre-operative Note Interval Note History & Physical reviewed/Exam performed by Physician: Yes Changes to H&P: No
--- NOTE | 2024-04-29 17:45 | PC.NURSE ---
late note , taken to surgery at approx 1645
--- NOTE | 2024-04-29 19:39 | SUR.OPER ---
Patient was positioned in supine with head of bed elevated more than 40 degrees. Arms were at patient's side. Safety belt over knees.
[2024-04-29] MEDS: OXYCODONE IR 5 MG TABLET PO ×2 (19:48→23:13)
[2024-04-29] MEDS: DOCUSATE 100 MG CAPSULE PO (20:49)
[2024-04-29] MEDS: LACTATED RINGERS 1,000 ML 100 ML IV (23:15)
[2024-04-30] MEDS: HYDROMORPHONE 0.5 MG INJ IV (01:26)
[2024-04-30 03:00] VITALS: BP 139/90; PULSE 71; RESP 18; TEMP 36.6; O2SAT 96
[2024-04-30] MEDS: OXYCODONE IR 10 MG TABLET PO (03:33)
[2024-04-30] MEDS: OXYCODONE IR 5 MG TABLET PO ×2 (08:24→12:09)
[2024-04-30] MEDS: IBUPROFEN 400 MG TABLET PO (08:26)
[2024-04-30 08:28] VITALS: BP 144/92; PULSE 77; RESP 16; TEMP 36.2; O2SAT 97
--- NOTE | 2024-04-30 08:33 | PC.NURSE ---
Pt w/ oxycodon 5mg & Ibuprophen form discomfort, will assess
--- NOTE | 2024-04-30 09:40 | PT.IIE ---
Surgery Performed Operation Date: 04/29/24 19:45 Actual Procedures p Closed Reduction shoulder(Left) - Luca Chan MD Surgical History (Last Reviewed 04/29/24 @ 17:28 by Luca Chan MD) History of hip surgery Tracheostomy status Medical History (Last Reviewed 04/29/24 @ 17:28 by Luca Chan MD) Anterior dislocation of left shoulder Claustrophobia GERD (gastroesophageal reflux disease) Hypertension Pancreatitis Physical Therapy Inpatient Evaluation/Re-Eval M1 PT/OT-IP Prior Functional Status Start: 04/30/24 12:42 Freq: NEEDED Status: Active Protocol: Document 04/30/24 09:40 AB (Rec: 04/30/24 12:54 AB [id number]) Medical Review Prior Functional Status Medical History Reviewed Yes Communication able to make needs known Mobility and Gait pt stated that he was independent with all mobilities and ambulation without AD; pt takes care of him mom Social History Household Members family Living Arrangements House Number of Floors (Floors) One Floor Number of Stairs To Enter/Railing? 3 steps L rail ascending from the front door but R rail ascending from the garage Home Environment High Toilet,Walk in Shower Home Equipment Front Wheel Walker,Straight Cane,Raised Toilet Seat w/ Armrests,Shower Seat with Backrest,Hand Held Shower,Grab Bars Near Toilet,Grab Bars In Shower Additional Social History Comment pt lives with his mom who he takes care of M2 PT-IP Current Condition Start: 04/30/24 12:42 Freq: NEEDED Status: Active Protocol: Document 04/30/24 09:40 AB (Rec: 04/30/24 12:54 AB [id number]) Physical Therapy Current Condition Current Condition Evaluation Date 04/30/24 Treatment Diagnosis L shoulder recurrent dislocations s/p reduction; difficulty in walking Onset Date 04/29/24 M3 PT-IP Subjective Start: 04/30/24 12:42 Freq: NEEDED Status: Active Protocol: Document 04/30/24 09:40 AB (Rec: 04/30/24 12:54 AB [id number]) Subjective Physical Therapy Visit Type Type Initial Evaluation Visit Start Time 09:40 Visit Stop Time 10:15 Number of TIRE TECHNICIAN Visits 0 Physical Therapy Visit Comments Patient Comments agreeable to do PT Therapy Pain Assessment Pain When Pain Assessed At Rest Location Left Shoulder Intensity 9 Scale Used Numeric (0 - 10) Pain Management Techniques Apply Cold,Distraction, Modification of Treatment,Re- positioning,Timing of Activity with Medications M4 PT-IP Mobility and Gait Start: 04/30/24 12:42 Freq: NEEDED Status: Active Protocol: Document 04/30/24 09:40 AB (Rec: 04/30/24 12:54 AB [id number]) PT-Bed Mobility Assessment Supine to Sit Supine to Sit Independent PT-Transfer Assessment Sit to and From Stand Sit to and from Stand Independent,Use of Upper Extremities Equipment Transfer Assistive Device None,Gait Belt Orthotic/Prosthetic Devices or Brace: Yes Transfers Transfer Destination Chair Transfer Technique ambulated Transfer Ability Level of Assist Independent Comments Mobility Comments pt supine in bed and agreeable to do PT. obtained PLOF and home set up. pt completed bed mobility independent. repositioned/readjust sling. pt completed sit to stand independent and ambulated ~ 250 ft without AD SBA. presents with unsteady gait but without LOB. pt completed up/down steps using R rail SBA. pt ambulated back to his room without AD SBA. sat on chair and positioned. call light and table placed within reach. pt without further concerns. Gait Assessment Gait Gait Assistance Required: Standby Assistance Distance (Feet) 250 Able to Maintain Weight Bearing Status Yes During Gait Assistive Devices Assistive Device None,Gait Belt Orthotic/Prosthetic Devices or Brace: Yes Gait Deviations General Gait Pattern Ataxic,Step-to Gait Factors Limiting Gait Function Factors Limiting Gait Function Decreased Strength,Limited Range of Motion,Pain,Poor Balance,Poor Safety Awareness Stair Climbing Assessment Evaluation Level of Assist On Stairs Standby Assistance Devices Stair Climbing Assistive Devices Right Railing Technique/Endurance Stair Climbing Direction Ascend and Descend Stair Climbing Technique Step Over Step,Step to Step Number of Steps Climbed 3 Query Text: Stair Climbing Set # Repetitions (reps) 1 PT-Balance Assessment Sitting Balance and Reactions Static Sitting Balance Ability Normal Dynamic Sitting Balance Ability Normal Standing Balance and Reactions Static Standing Balance Ability Normal Dynamic Standing Balance Ability Good Device Used without AD M5 PT-IP Objective Assessments Start: 04/30/24 12:42 Freq: NEEDED Status: Active Protocol: Document 04/30/24 09:40 AB (Rec: 04/30/24 12:54 AB [id number]) Orientation Orientation/Cognition Level of Alertness Alert Orientation Name,Place,Situation Language Function Ability No Deficits Noted Safety Awareness Understands Safety Issues Memory Description No Deficits Noted Gross Range of Motion Lower Extremity ROM Assessment Within Functional Limits Strength Lower Extremity Strength Assessment Within Functional Limits Sensation Assessment Sensation Sensation Description Numbness Comments Sensation Comments B feet numbness: pt stated from previous GBS Muscle Tone Muscle Tone WNL Yes M6 PT-IP Treatment Start: 04/30/24 12:42 Freq: NEEDED Status: Active Protocol: Document 04/30/24 09:40 AB (Rec: 04/30/24 12:54 AB [id number]) Physical Therapy Treatment Education Education Provided Safety M7 PT-IP Assessment and Plan Start: 04/30/24 12:42 Freq: NEEDED Status: Active Protocol: Document 04/30/24 09:40 AB (Rec: 04/30/24 12:54 AB [id number]) PT Summary Assessment and Plan Potential Rehabilitation Potential Good Status of Condition at Evaluation Stable Summary Impairments Pain,ROM,Strength,Balance, Coordination,Sensation,Tone, Cognition,Bed Mobility, Transfers,Gait,Activity Tolerance Assessment Summary pt is a 59 y/o M with recurrent L shoulder dislocations s/p reduction. pt has a sling on. pt is SBA with ambulation without AD. pt stated that the doctor wants him to see outpt PT for L shoulder. pt may go home when medically stable. No further PT needs. Frequency of Treatment Frequency Of Treatment Discharge Treatment Plan Physical Therapy Treatment Plan Bed Mobility Training,Transfer Training,Gait Training, Therapeutic Exercise,Balance Retraining,Post Op Education, Discharge Planning,Hot or Cold Pack,Neuromuscular Re-ed, Coordination Retraining,Manual Therapy Precautions Shoulder Precautions Sling Recommendations To Nursing Amount of Assist Needed Standby Assistance Discharge Recommendations PT Discharge Recommendations Home with Assistance, Outpatient PT Transportation Needs at Discharge Private Vehicle
[2024-04-30] MEDS: ACETAMINOPHEN 325 MG TABLET 650 MG PO (10:17)
[2024-04-30] MEDS: LORazepam 1 MG TABLET PO (10:17)
--- NOTE | 2024-04-30 10:42 | PM.DS.1 ---
History of Present Illness History of Present Illness Date Patient Seen: 04/30/24 Time Patient Seen: 10:42 Chief complaint: left shoulder dislocation Narrative: 59 yo gentleman has presented to the ED three times within the last 3 weeks w/ LEFT anterior shoulder dislocation. This has necessitated reduction under general anesthesia each time. Discharge Providers Provider Date of admission: 04/29/24 07:46 Discharge Date: 04/30/24 Primary care physician: Sindy Ramos PA-C Consults: 04/29/24 19:39 Consult to Discharge Planning Routine Comment: Consult to Occupational Therapy Evaluate & Treat Comment: Physician Instructions: Evaluate and treat Consult to Physical Therapy Evaluate & Treat Comment: Physician Instructions: Evaluate and Treat Discharge provider: Lucero Higgins PA-C Summary Hospital Course Discharge Diagnosis: LEFT shoulder anterior dislocation, s/p closed reduction under anesthesia. Hospital Course: Pts hospital course was unremarkable. He was admitted from the ED and stayed overnight d/t late timing of surgery. He has been followed by Dr Jeff Anglin at for this issue, and has another appt w/ Dr Anglin scheduled later this month. Exam Vital Signs (past 8 hours): - 04/30/24 03:00 04/30/24 08:28 Temperature 97.9 F 97.1 F L Pulse Rate 71 77 Respiratory Rate 18 16 Blood Pressure 139/90 144/92 H Pulse Oximetry 96 97 Oxygen Flow Rate 0 0 Oxygen Delivery Method Room Air Oxygen Flow Rate 0 Narrative Exam Narrative: 5/5 extruder tender strength, biceps, triceps on left. Sensation to light touch intact throughout LUE. Brisk capillary refill. Sling well-placed. [facility] Medical History Anterior dislocation of left shoulder Claustrophobia Pancreatitis GERD (gastroesophageal reflux disease) Hypertension Surgical History Tracheostomy status History of hip surgery Social History household members: family Smoking Status: Never smoker alcohol intake: current Discharge Assessment & Plan Assessment and Plan Assessment: LEFT shoulder anterior dislocation, s/p closed reduction under anesthesia Plan of Treatment: Follow up w/ Dr Anglin as scheduled. Sling at all times, especially at night. Work w/ outpt PT on proper positioning for sleep to keep from rolling onto left side. Discharge Plan Discharge Plan Patient Disposition: Home Discharge orders & Medications Prescriptions: Continued cyanocobalamin (vitamin B-12) [Vitamin B-12] 1,000 mcg Tablet 1,000 mcg PO DAILY thiamine HCl (vitamin B1) 100 mg Tablet 100 mg PO DAILY folic acid 400 mcg Tablet 0.4 mg PO DAILY acetaminophen [Tylenol Extra Strength] 500 mg Tablet 1,000 mg PO Q6H PRN (Reason: pain/ fever) lorazepam 1 mg Tablet 1 mg PO TID cholecalciferol (vitamin D3) 25 mcg (1,000 unit) Capsule 25 mcg PO DAILY multivit with min-folic acid [Adult Multivitamin Gummies] 200 mcg Tablet,Chewable 200 mcg PO DAILY magnesium oxide 400 mg magnesium Tablet 800 mg PO BEDTIME gabapentin 200 mg capsule 600 mg PO TID potassium chloride 20 mEq tablet,ER particles/crystals 20 meq PO DAILY All Day Calcium 1,000 mg tablet 1,000 mg PO DAILY Chewable Vitamin C 1,000 mg tablet 1,000 mg PO DAILY oxycodone 5 mg Tablet 5 mg PO Q4HR PRN (Reason: Pain, Moderate (4-6)) Qty: 20 0RF Creon 6,000-19,000 -30,000 unit capsule,delayed release(DR/EC) 1 cap PO 3XD pantoprazole [Protonix] 40 mg Tablet,Delayed Release (Dr/Ec) 40 mg PO DAILY Follow up/Referrals: Sindy Ramos PA-C [Primary Care Provider] - Jeff Anglin MD [Non-Staff] - (Pt is being followed by Dr Anglin for recurrent shoulder dislocations and has an appt scheduled later this month.) Diet/Activity/Treatments Diet: Diet as Tolerated Activity: Recommend sling at all times, especially while sleeping. Work w/ outpt PT on bed positioning/barriers to prevent rolling onto left side. Cold/Heat Therapy: Ice to shoulder as needed for pain. Visit Report/Discharge Packet Stand Alone Forms: Patient Portal/API, Stroke Signs & Symptoms Discharge Data Primary Care Provider: Sindy Ramos Attending Provider: Luca Chan Admit Date/Time: 04/29/24 07:46
--- NOTE | 2024-04-30 12:45 | CM.DANOTE ---
Patient is a 59 yo male who was Readmitted on 04/29/24 for Chronic Shoulder Dislocations. Pt has [facility] AD[facility] for insurance and his PCP is Sindy Ramos. EMR was reviewed. Per Ortho, pt with multiple dislocations that have needed to be replaced under anesthesia and now taken to OR for shoulder reduction. PT/OT ordered and stable for discharge later today. Per PT, pt able to mobilize with sling in place and recommending home with outpt PT. SW met bedside with pt and explained role and he confirms he still lives with mother in [place], drives, and overall is mod indep and has a cane at home but does not use at this time and no hx of HH or SNF. Pt states he just rolled over wrong in bed and his shoulder dislocated this time. Pt helps to care for his elderly 85 yo mother but she is still fairly independent with ADLs but his mom can no longer drive safely. Pt confirms his preference is to discharge home today and feels he can manage his needs but requesting assist with transport home. SW discussed that pt has historically used [employer] to get home to [place] and strongly requested that he begin placing calls to see if any neighbors, taoism members of the [employer] they go to, or family friends can transport or if pt has his wallet to pay for a taxi as he is Medicaid spenddown and currently no Medicaid transportation benefits. Pt attempted to find alternative ride home unsuccessfully and states he was brought by EMS and therefore does not have his wallet on him. SW called [employer] and scheduled 1430 ride home via [employer] quoted $55 to [place] and no Pharmacy stops as pt's meds all continued and no new meds. RN updated and will provide discharge instructions and gave copy of the Taxi Voucher to present to [employer] driver/supervisor. BEULAH Fatima Discharge Planning/Care Management CM Discharge Assessment Start: 04/30/24 12:42 Freq: Status: Active Protocol: Document 04/30/24 12:42 BF (Rec: 04/30/24 12:45 BF [id number]) Discharge Planning Assessment Assigned Sponsorship Manager BEULAH Gibbons DPOA/Assigned Designee Name mother Advance Directives? No Advance Directives on File No History Provided By Patient,Medical Record Has Patient been admitted in last 30 Yes days? Comment 3rd admit in a month for chronic should dislocations Prior Living Arrangements House Household Members family Comment Lives with elderly mother Type of transporation used prior to Drives own vehicle admit Independent with ADL's Yes Is patient alert and oriented? Yes Caregiver for Another Yes: 85 yo mother at home Comment Has a cane available, has not been needing to use. Patient/Family Preference OP PT Therapy Barriers to Discharge Yes Comment Transportation Discharge Plan Home Community Services Physical Therapy Transportation Arrangement Taxi, [employer] for 1430 transport Referrals Initiated Other Additional Comment taxi voucher Whiteboard Updated in Patient Room with Yes name and ext. # of Sponsorship Manager Review Status In Process Please Provide Date Initial DC 04/30/24 Assessment Was Performed Next Review Type Continued Stay Review
--- NOTE | 2024-04-30 14:22 | PC.NURSE ---
Pt discharged home by taxi at 1417, escorted off floor in wheelchair accompanied by hospital staff. IV removed, discharge teaching completed including follow up appointment and worsening symptoms. Patient left the room with all belongings.
--- NOTE | 2024-06-23 10:22 | P.OP_ITS ---
Operative Date/Time/Diagnoses Date of procedure: 04/29/24 Time of procedure: 20:00 Pre-op diagnosis: Left recurrent shoulder dislocation Post-op diagnosis: same Procedure & Clinicians Procedure: Closed reduction left shoulder dislocation Same procedure as scheduled: Yes Indications: Left shoulder dislocation Surgeon: Luca Chan Click Yes if Unassisted: Yes Anesthesia Type: General Operative Notes Findings: Anterior dislocation left shoulder Closure Type: not applicable Procedure in detail: On date of service, patient was met in the holding area where his operative site was signed and witnessed by the OR staff. Patient was brought back to the operating theater. Once the patient was appropriately anesthetized reduction remover was performed on the left shoulder reducing a anterior dislocated shoulder joint. C-arm was used to verify reduction. Patient had a concentric reduction with no sign of any fractures or subluxation. Patient was placed into a sling and was taken to the PACU in stable condition. Complications: none Post-operative Condition: stable Plan for aftercare: Patient is being seen at [facility] for his shoulder instability and should continue to follow-up with them.
== END 2024-04-30 14:24 | disposition home or self-care (01) ==
LOC: ED 04-29 07:06 → AC 04-29 07:47
PROVIDERS: Admitting Provider Orthopaedic Surgery; Emergency Provider Emergency Medicine; PCP Physician Assistant; Referring Provider Emergency Medicine; Visit Provider Orthopaedic Surgery
PROC: (CPT 23655; principal; 2024-04-29 19:45)
DX: M24.412 Recurrent dislocation, left shoulder (principal)
CPT/HCPCS: 23655; 23650; 73030; 76000; 96374; 96376; 97116; 97161; 99152; 99285; G0378; J1171; J2250; J2704